=== PATIENT | female | born 1940 | race Caucasian/White ===

== ENCOUNTER 2018-03-03 11:19 | Observation (INO) | payer MEDICARE, OTHER ==
[2018-03-03] MEDS ORDERED: TYLENOL EXTRA STRENGTH 500 MG PO STA (11:46)
--- NOTE | 2018-03-03 11:53 | ERPHSYRPT ---
- History of Present Illness Time Seen by Provider: 03/03/18 11:49 Source: patient, family Patient Subjective Stated Complaint: pt fell on , got up from chair and fell. pt states she hit head on door jam. co right rib pain Triage Nursing Assessment: pt alert, resp easy.skin w/d/p. pt has pain to right side, has bruising to right rib area. has contusion to left side of head Physician History: pt mild to mod right flank pain since slip and fall from a chair last , struck her head, no loc, no bleeding, not on blood thinners, no neck pain Allergies/Adverse Reactions: c[facility]lor [From [facility]] Allergy (Verified 03/03/18 11:47) Penicillins Allergy (Verified 03/03/18 11:47) codeine Adverse Reaction (Verified 03/03/18 11:47) morphine Adverse Reaction (Verified 03/03/18 11:47) Home Medications: Alprazolam 0.25 mg [xanAX 0.25 MG] 0.25 mg PO TIDPRN 07/19/14 [History] Calcium Carbonate/Vitamin D3 [Calcium 600 + Vit D Tablet] 1 each PO BID [History] Megestrol Acetate 40 mg [Megace 40 MG] 40 mg PO QID 07/19/14 [History] Omeprazole 40 mg PO HS 07/19/14 [History] Potassium Chloride 20 Meq [Klor-Con 20 MEQ] 20 meq PO TID 07/19/14 [History] Triamterene/Hydrochlorothiazid [Dyazide 37.5-25 Capsule] 1 each PO DAILY [History] Valsartan [Diovan] 160 mg PO HS 07/19/14 [History] Docusate Sodium [Colace] 100 mg PO BID 07/25/14 [History] Levothyroxine Sodium 75 Mcg [Synthroid 75 Mcg] 75 mcg PO DAILY 07/25/14 [ History] Loratadine [Claritin] 10 mg PO DAILY PRN PRN 07/25/14 [History] Aspirin 81 gm Chew [Baby Aspirin 81 mg Chew] 81 mg PO DAILY 03/22/15 [ History] Fenofibrate,Micronized 145 mg* [Tricor 145 MG] 145 mg PO HS 03/22/15 [History ] Ketoconazole Cream [Nizoral CREAM] 1 applic TOP DAILY PRN PRN 03/22/15 [ History] Nisoldipine 20 mg PO DAILY 03/22/15 [History] Hx Tetanus, Diphtheria Vaccination/Date Given: (UNKNOWN) Hx Influenza Vaccination/Date Given: Yes Hx Pneumococcal Vaccination/Date Given: Yes Immunizations Up to Date: Yes - Review of Systems Constitutional: No Fever Eyes: No Vision Changes Ears, Nose, & Throat: No Mouth Pain Respiratory: No Dyspnea Cardiac: Chest Pain Abdominal/Gastrointestinal: No Abdominal Pain, No Vomiting Genitourinary Symptoms: No Hematuria Musculoskeletal: No Back Pain, No Neck Pain - Past Medical History Pertinent Past Medical History: Yes Neurological History: No Pertinent History ENT History: No Pertinent History Cardiac History: High Cholesterol, Hypertension Respiratory History: Lung Cancer Endocrine Medical History: Hypothyroidism Musculoskeletal History: Arthritis, Degenerative Disk Disease, Osteoarthritis GI Medical History: No Pertinent History History: No Pertinent History Female Reproductive Disorders: Uterine Cancer, Vaginal Cancer Other Medical History: Fx in wrist and ribs after fall in 2013. - Past Surgical History Past Surgical History: Yes Neuro Surgical History: No Pertinent History Cardiac: No Pertinent History Respiratory: Lobectomy Gastrointestinal: Cholecystectomy, Hemorrhoidectomy, Other Genitourinary: No Pertinent History Musculoskeletal: Orthopedic Surgery Female Surgical History: Hysterectomy Other Surgical History: surgery to remove cancer in right lung. multiple hernia repairs. L TKR. R partial knee replacement. removal of pancreas "stone " - Social History Smoking Status: Never smoker Exposure to second hand smoke: Yes Drug Use: none Patient Lives Alone: No - Female History Hx Last Menstrual Period: post Hx Now: No - Nursing Vital Signs Nursing Vital Signs: Initial Vital Signs Temperature 99.5 F 03/03/18 11:38 Pulse Rate 84 03/03/18 11:38 Respiratory Rate 18 03/03/18 11:38 Blood Pressure 180/88 03/03/18 11:38 O2 Sat by Pulse Oximetry 98 03/03/18 11:38 Pain Scale Pain Intensity 0 - Physical Exam General Appearance: no apparent distress Eye Exam: eyes nml inspection Ears, Nose, Throat Exam: moist mucous membranes Neck Exam: normal inspection, non-tender, supple, full range of motion Respiratory Exam: normal breath sounds, chest tenderness, other (tender right flank, no sub Q air) Cardiovascular Exam: regular rate/rhythm Gastrointestinal/Abdomen Exam: soft, tenderness, No rebound Back Exam: No vertebral tenderness Extremity Exam: normal inspection Neurologic Exam: alert, oriented x 3, cooperative Skin Exam: warm, dry SpO2 Interpretation: normal SpO2: 98 Oxygen Delivery: Room Air - Course Nursing assessment & vital signs reviewed: Yes EKG Interpreted by Me: Other (nsr 81, no stemi) - CT Exams Chest CT Interpretation: Discussed w/radiologist, Other (no large central PE, +rib fx on the right 10 and 11) Ordered Tests: Active Orders 24 hr Category Date Time Status EKG-ER Only STAT Care 03/03/18 11:47 Active IV Insertion STAT Care 03/03/18 11:47 Active ABDOMEN AND PELVIS W CONTRAST [CT] Stat Exams 03/03/18 13:33 Taken CHEST 2 VIEWS (PA AND LAT) Stat Exams 03/03/18 11:47 Taken CHEST WITH CONTRAST [CT] Stat Exams 03/03/18 13:33 Taken HEAD WITHOUT CONTRAST [CT] Stat Exams 03/03/18 11:49 Taken CBC W DIFF Stat Lab 03/03/18 12:25 Completed CK-Creatinine Phosphokinase Stat Lab 03/03/18 12:25 Completed CMP Stat Lab 03/03/18 12:25 Completed D-DIMER QUANTITATION Stat Lab 03/03/18 12:25 Completed PROTIME WITH INR Stat Lab 03/03/18 12:25 Completed TROPONIN Q3H Lab 03/03/18 12:25 Completed TROPONIN Q3H Lab 03/03/18 15:20 Completed TROPONIN Q3H Lab 03/03/18 18:00 Ordered TROPONIN Q3H Lab 03/03/18 21:00 Ordered TROPONIN Q3H Lab 03/04/18 00:00 Ordered Transfer Order Routine Transfer 03/03/18 Ordered Medication Summary Discontinued Medications Generic Name Dose Route Start Last Admin Trade Name Freq PRN Reason Stop Dose Admin Acetaminophen 500 mg 03/03/18 11:46 03/03/18 11:57 Tylenol Extra Strength 500 Mg PO 03/03/18 11:47 500 mg STAT STA Administration Acetaminophen Confirm 03/03/18 11:57 Tylenol Extra Strength 500 Mg Administered 03/03/18 11:58 Dose 500 mg .ROUTE .STK-MED ONE Ketorolac Tromethamine 30 mg 03/03/18 13:48 03/03/18 13:52 Toradol 30 Mg Injection IV 03/03/18 13:49 30 mg STAT ONE Administration Ketorolac Tromethamine Confirm 03/03/18 13:50 Toradol 30 Mg Injection Administered 03/03/18 13:51 Dose 30 mg .ROUTE .STK-MED ONE Lab/Rad Data: Laboratory Result Diagrams 03/03/18 12:25 03/03/18 12:25 Laboratory Results 03/03/18 03/03/18 03/03/18 Range/Units 15:20 12:25 12:25 WBC (4.0-10.5) K/mm3 RBC (4.1-5.4) M/mm3 Hgb (12.0-16.0) gm/dl Hct (35-47) % MCV (78-100) fl MCH (26-32) pg MCHC (32-36) g/dl RDW (11.5-14.0) % Plt Count (150-450) K/mm3 MPV (6-9.5) fl Gran % (36.0-66.0) % Eos # (Auto) (0-0.5) Absolute Lymphs (auto) (1.0-4.6) Absolute Monos (auto) (0.0-1.3) Lymphocytes % (24.0-44.0) % Monocytes % (0.0-12.0) % Eosinophils % (0.00-5.0) % Basophils % (0.0-0.4) % Absolute Granulocytes (1.4-6.9) Basophils # (0-0.4) PT 12.7 H (9.95-12.35) SECONDS INR 1.09 (0.8-3.0) D-Dimer 1059 H* (215-500) ng/mL Sodium (137-145) mmol/L Potassium (3.5-5.1) mmol/L Chloride (98-107) mmol/L Carbon Dioxide (22-30) mmol/L Anion Gap (5-15) MEQ/L BUN (7-17) mg/dL Creatinine (0.52-1.04) mg/dL Estimated GFR ML/MIN Glucose (74-106) mg/dL Calcium (8.4-10.2) mg/dL Total Bilirubin (0.2-1.3) mg/dL AST (14-36) U/L ALT (0-35) U/L Alkaline Phosphatase (38-126) U/L Creatine Kinase (30-135) U/L Troponin I < 0.012 < 0.012 (0.000-0.034) ng/mL Serum Total Protein (6.3-8.2) g/dL Albumin (3.5-5.0) g/dL 03/03/18 03/03/18 Range/Units 12:25 12:25 WBC 5.5 (4.0-10.5) K/mm3 RBC 4.57 (4.1-5.4) M/mm3 Hgb 14.6 (12.0-16.0) gm/dl Hct 42.4 (35-47) % MCV 92.8 (78-100) fl MCH 31.9 (26-32) pg MCHC 34.4 (32-36) g/dl RDW 14.3 H (11.5-14.0) % Plt Count 233 (150-450) K/mm3 MPV 9.3 (6-9.5) fl Gran % 69.4 H (36.0-66.0) % Eos # (Auto) 0.17 (0-0.5) Absolute Lymphs (auto) 0.97 L (1.0-4.6) Absolute Monos (auto) 0.52 (0.0-1.3) Lymphocytes % 17.6 L (24.0-44.0) % Monocytes % 9.4 (0.0-12.0) % Eosinophils % 3.1 (0.00-5.0) % Basophils % 0.5 (0.0-0.4) % Absolute Granulocytes 3.83 (1.4-6.9) Basophils # 0.03 (0-0.4) PT (9.95-12.35) SECONDS INR (0.8-3.0) D-Dimer (215-500) ng/mL Sodium 144 (137-145) mmol/L Potassium 3.1 L (3.5-5.1) mmol/L Chloride 109 H (98-107) mmol/L Carbon Dioxide 22 (22-30) mmol/L Anion Gap 16.1 H (5-15) MEQ/L BUN 13 (7-17) mg/dL Creatinine 0.76 (0.52-1.04) mg/dL Estimated GFR > 60.0 ML/MIN Glucose 103 (74-106) mg/dL Calcium 9.5 (8.4-10.2) mg/dL Total Bilirubin 0.90 (0.2-1.3) mg/dL AST 21 (14-36) U/L ALT 20 (0-35) U/L Alkaline Phosphatase 122 (38-126) U/L Creatine Kinase 106 (30-135) U/L Troponin I (0.000-0.034) ng/mL Serum Total Protein 8.2 (6.3-8.2) g/dL Albumin 4.5 (3.5-5.0) g/dL - Progress Progress: improved Discussed with : Other (Dr Lundberg) Will see patient in: hospital (observation) Counseled pt/family regarding: lab results, diagnosis, rad results - Departure Time of Disposition: 18:13 Departure Disposition: Observation Clinical Impression: D-dimer, elevated Fracture, rib Qualifiers: Encounter type: initial encounter Rib fracture type: multiple ribs Fracture type: closed Laterality: right Qualified Code(s): S22.41XA - Multiple fractures of ribs, right side, initial encounter for closed fracture Condition: Stable Critical Care Time: No Referrals: JOSE COFFEY MD [Primary Care Provider] -
[2018-03-03] MEDS ORDERED: TYLENOL EXTRA STRENGTH 500 MG ONE (11:57)
[2018-03-03 12:34] LABS: BASOPHIL % 0.5 % (0.0-0.4); Basophil (Absolute #) 0.03 (0-0.4); Eosinophil % 3.1 % (0.00-5.0); Eosinophil (Absolute #) 0.17 (0-0.5); Granulocyte Absolute (ANC) 3.83 (1.4-6.9); Granulocytes % 69.4 % (36.0-66.0); Hematocrit 42.4 % (35-47); Hemoglobin 14.6 gm/dl (12.0-16.0); Lymphocyte (Absolute #) 0.97 (1.0-4.6); Lymphocytes % 17.6 % (24.0-44.0); Mean Cell Volume 92.8 fl (78-100); Mean Corpuscular Hemoglobin 31.9 pg (26-32); Mean Corpuscular Hgb Concent. 34.4 g/dl (32-36); Mean Platelet Volume 9.3 fl (6-9.5); Monocyte (Absolute #) 0.52 (0.0-1.3); Monocytes % 9.4 % (0.0-12.0); Platelet Count 233 K/mm3 (150-450); Red Blood Count 4.57 M/mm3 (4.1-5.4); Red Cell Distribution Width 14.3 % (11.5-14.0); White Blood Count 5.5 K/mm3 (4.0-10.5)
[2018-03-03 12:52] LABS: INR 1.09 (0.8-3.0)
[2018-03-03 13:16] LABS: ALKALINE PHOSPHATASE 122 U/L (38-126); BLOOD UREA NITROGEN 13 mg/dL (7-17); CHLORIDE 109 mmol/L (98-107); Calcium 9.5 mg/dL (8.4-10.2); Carbon Dioxide 22 mmol/L (22-30); Potassium 3.1 mmol/L (3.5-5.1); SGOT/AST 21 U/L (14-36); SGPT/ALT 20 U/L (0-35); Total Protein 8.2 g/dL (6.3-8.2)
[2018-03-03 13:24] LABS: ALBUMIN 4.5 g/dL (3.5-5.0); ANION GAP 16.1 MEQ/L (5-15); CK-Creatinine Phosphokinase 106 U/L (30-135); Creatinine 1 0.76 mg/dL (0.52-1.04); Glucose 103 mg/dL (74-106); SODIUM 144 mmol/L (137-145)
[2018-03-03] MEDS ORDERED: TORAdol 30 mg Injection IV ONE (13:48)
[2018-03-03] MEDS ORDERED: TORAdol 30 mg Injection ONE (13:50)
[2018-03-03] MEDS ORDERED: APRESOLINE 20 MG/ML INJ IV ONE (18:14)
[2018-03-03] MEDS ORDERED: APRESOLINE 20 MG/ML INJ ONE (18:40)
[2018-03-03] MEDS ORDERED: TYLENOL 325 MG PO PRN (19:05)
[2018-03-03] MEDS ORDERED: TORAdol 30 mg Injection IV PRN (19:05)
[2018-03-03] MEDS ORDERED: APRESOLINE 20 MG/ML INJ IV PRN (20:44)
[2018-03-03] MEDS ORDERED: Klor Con 10 MEQ PO ONE (20:45)
[2018-03-03] MEDS ORDERED: DIOVAN 80 MG ONE (21:10)
[2018-03-03] MEDS ORDERED: Protonix 40MG Tablet ONE (21:10)
[2018-03-03] MEDS ORDERED: xanAX 0.25 MG ONE (21:10)
[2018-03-03] MEDS ORDERED: xanAX 0.25 MG PO PRN (21:11)
[2018-03-03] MEDS: DIOVAN 80 MG PO SCH (21:16)
--- NOTE | 2018-03-03 21:31 | XRAY ---
Indication: Right-sided pain following fall 3 days ago. Multiple contiguous axial images obtained through the abdomen and pelvis using 80 cc Isovue 370 contrast only. Comparison: March 22, 2015. CT chest reported separately. Noncontrasted stomach and bowel loops appear nonobstructed. Again scattered colonic diverticulosis without diverticulitis. Stable tiny renal cortical cysts bilaterally. Previous hysterectomy, appendectomy, cholecystectomy, and ventral hernia repair. No free fluid/air. Remaining liver, pancreas, spleen, adrenal glands, ureters, and bladder appear unremarkable. Moderate aortoiliac calcifications. No AAA or pathological retroperitoneal lymphadenopathy. Osseous structures intact again with mild/moderate multilevel lumbar degenerative spondylosis including minimal anterior stasis of L3 on L4 on L5. Impression: 1. Stable bilateral renal cysts and colonic diverticulosis. 2. No new or acute intra-abdominal/pelvic abnormalities. 3. Stable lumbar degenerative spondylosis. Comment: Preliminary interpretation was made by [facility]. No critical discrepancy. CTDI 16.67
--- NOTE | 2018-03-03 21:33 | XRAY ---
Indication: Right-sided pain following fall 3 days ago. Multiple contiguous axial images obtained through the chest using 80 cc Isovue 370 contrast. Comparison: None Lungs are fully inflated with mild right middle lobe and lesser degree both lower lobe fibrosis/scarring. No suspicious pulmonary mass, infiltrate, or effusion. Heart is not enlarged. No pathologic mediastinal/hilar lymphadenopathy. Moderate-sized hiatal hernia. Bone windows reveal old right rib fractures and nondisplaced right posterior 10/[address] abdomen/pelvis reported separately. Impression: 1. Nondisplaced right 10/11 acute rib fractures. No pneumothorax or hemothorax. 2. Hiatal hernia. Comment: Preliminary interpretation was made by [facility]. No critical discrepancy. CTDI 16.98
--- NOTE | 2018-03-03 21:35 | XRAY ---
Indication: Right-sided chest pain following fall 3 days ago. Comparison: December 18, 2015. PA/lateral chest again hyperinflated with right middle lobe fibrosis/scarring. No focal infiltrate, consolidation, large effusion, or pneumothorax. Heart is not enlarged. Bony thorax intact again with mild osteopenia, degenerative changes, and old right rib fractures. Impression: Nonacute chest with chronic features.
[2018-03-03] MEDS: ENOXAPARIN SODIUM SQ SCH (21:56)
[2018-03-03] MEDS ORDERED: Protonix 40MG Tablet PO SCH (22:00)
[2018-03-03] MEDS ORDERED: ULTRAM 50 MG PO PRN (22:29)
[2018-03-03] MEDS ORDERED: BENADRYL 25 MG CAPSULE PO PRN (22:30)
[2018-03-04 06:04] LABS: BASOPHIL % 0.6 % (0.0-0.4); Basophil (Absolute #) 0.03 (0-0.4); Eosinophil % 3.6 % (0.00-5.0); Eosinophil (Absolute #) 0.17 (0-0.5); Granulocyte Absolute (ANC) 2.78 (1.4-6.9); Granulocytes % 59.3 % (36.0-66.0); Hematocrit 37.8 % (35-47); Hemoglobin 12.8 gm/dl (12.0-16.0); Lymphocytes % 25.6 % (24.0-44.0); Mean Corpuscular Hemoglobin 31.8 pg (26-32); Mean Corpuscular Hgb Concent. 33.9 g/dl (32-36); Mean Platelet Volume 9.7 fl (6-9.5); Monocyte (Absolute #) 0.51 (0.0-1.3); Monocytes % 10.9 % (0.0-12.0); Platelet Count 234 K/mm3 (150-450); Red Blood Count 4.02 M/mm3 (4.1-5.4); Red Cell Distribution Width 14.4 % (11.5-14.0); White Blood Count 4.7 K/mm3 (4.0-10.5)
[2018-03-04 06:18] LABS: ALBUMIN 3.7 g/dL (3.5-5.0); ALKALINE PHOSPHATASE 91 U/L (38-126); ANION GAP 12.7 MEQ/L (5-15); BLOOD UREA NITROGEN 14 mg/dL (7-17); CHLORIDE 109 mmol/L (98-107); Calcium 8.8 mg/dL (8.4-10.2); Carbon Dioxide 24 mmol/L (22-30); Creatinine 1 0.68 mg/dL (0.52-1.04); Glucose 99 mg/dL (74-106); Potassium 3.4 mmol/L (3.5-5.1); SGOT/AST 18 U/L (14-36); SGPT/ALT 16 U/L (0-35); SODIUM 142 mmol/L (137-145); Total Protein 6.6 g/dL (6.3-8.2)
[2018-03-04] MEDS ORDERED: xanAX 0.25 MG PO PRN (07:33)
[2018-03-04] MEDS ORDERED: ULTRAM 50 MG PO PRN (07:34)
[2018-03-04] MEDS ORDERED: Lopressor 25MG Tab PO SCH (08:00)
[2018-03-04] MEDS ORDERED: MEDICATION INTERVENTION MC SCH (09:00)
[2018-03-04] MEDS: ENOXAPARIN SODIUM SQ SCH (09:29)
[2018-03-04] MEDS ORDERED: Klor Con 10 MEQ PO SCH (10:00)
[2018-03-04] MEDS ORDERED: TRIAMTERENE PO SCH (10:00)
[2018-03-04] MEDS ORDERED: Maxzide-25MG Tablet PO SCH (10:00)
[2018-03-04] MEDS ORDERED: ECOTRIN 81 MG PO SCH (10:00)
[2018-03-04] MEDS ORDERED: NISOLDIPINE 20 MG PO SCH (10:00)
[2018-03-04] MEDS ORDERED: HYDROCHLOROTHIAZID PO SCH (10:00)
[2018-03-04] MEDS ORDERED: NON-FORMULARY ITEM (Potassium Chloride 20 Meq [Klor-Con 20 Meq] 20 MEQ) PO SCH (10:00)
[2018-03-04] MEDS ORDERED: SYNTHROID 75 MCG PO SCH (10:00)
[2018-03-04] MEDS ORDERED: BABY ASPIRIN 81 MG CHEW PO SCH (10:00)
[2018-03-04 12:01] VITALS: BP 155/80; PULSE 74; O2SAT 97
[2018-03-04] MEDS: DIOVAN 80 MG PO SCH (12:50)
[2018-03-04] MEDS ORDERED: Klor Con 10 MEQ PO ONE (13:00)
--- NOTE | 2018-03-06 10:06 | XRAY ---
Indication: Posterior head injury. Multiple contiguous axial images obtained through the head without contrast. Comparison: December 19, 2015. Stable age-appropriate global atrophy and mild periventricular degenerative micro-ischemia bilaterally. No acute intracranial hemorrhage, abnormal extra-axial fluid collection, or mass effect. Fourth ventricle is midline. Bony calvarium intact. Visualized paranasal sinuses and mastoid air cells are clear. Impression: Stable nonacute senile brain. Comment: Preliminary interpretation was made by [facility]. No discrepancy. CTDI 49.85
--- NOTE | 2018-03-06 14:12 | HP ---
HISTORY OF PRESENT ILLNESS: Hina is a 77 year-old lady who presented to the emergency room with chief complaint of having chest pain on the side after having a fall and elevated blood pressure. The patient said she is 77. She had hit her head and had a fall a few days back and thereafter she fell down and injured her chest wall and also having some elevated blood pressure which she has not been able to control. With those complaints she reported to the emergency room. The patient was noted to have multiple rib fractures on the right side with some displacement along with some contusion of the head and was admitted to the hospital. PAST MEDICAL HISTORY: Pertinent history includes elevated cholesterol, hypertension. She does have a history of some lung cancer in the past. Endocrine system hypothyroidism. Musculoskeletal arthritis. History of wrist and rib fractures from a fall in 2013 also. PAST SURGICAL HISTORY: Surgery to remove cancer from right lung, multiple hernia repairs, partial knee replacement, removal of pancreatic stones per her, cholecystectomy, hemorrhoidectomy, some orthopedic procedures and hysterectomy. SOCIAL HISTORY: Denies smoking. No drug abuse. HOME MEDICATIONS: Alprazolam 0.25 mg t.i.d., calcium carbonate, megestrol 40, omeprazole 40, potassium 20 mEq t.i.d., triamterene hydrochlorothiazide 1 tablet daily, valsartan 160 once a day, Colace 100 b.i.d., levothyroxine 75 mcg daily. Loratadine 10 mg, aspirin 81, Fenofibrate, ketoconazole. ALLERGIES: CEFACLOR, PENICILLIN, CODEINE, MORPHINE. REVIEW OF SYSTEMS: The patient denies any fever. No visual changes. No major respiratory changes. She did have small headache with contusion, some chest pain worse on right side at site of injury from the fall. GI: No abdominal discomfort, vomiting or diarrhea. No hematuria. MUSCULOSKELETAL: No back pain. No neck pain. LUNGS: Positive for lung cancer status post-surgery. PHYSICAL EXAMINATION: Vital signs at the time of admission included blood pressure 180/88, pulse 84, respiratory rate 18, temperature afebrile 99.5F. Oxygen saturation 98%. HEENT: Pulses reactive. NECK: No JVD. No thyromegaly. No lymphadenopathy. CHEST: Tenderness right side, normal breath sounds. CVS: S1, S2 normal. ABDOMEN: Soft, nontender, EXTREMITIES: No edema. Pedal pulses present. NEUROLOGIC: Alert with no focal deficits. LAB DATA AND TESTS: The patient also had a slightly positive D-dimer. She had CT of the chest done. No large pulmonary embolism, rib fracture right tenth and eleventh rib with slight displacement. EKG sinus rhythm with some ectopy. Lab data showed sodium 144, potassium 3.1, chloride 109, BUN 13, creatinine 0.6. CBC showed white blood cell count 5.5, hemoglobin 14.3, hematocrit 42.4, PLT 232,000. Troponin was initially negative 0.012. CBC showed white blood cell count 5.5, hemoglobin 14.6, hematocrit 42.4. RDW 14.3, granulocytes 69.4. Sodium 144. ASSESSMENT AND PLAN: The patient was admitted with: 1) Chest pain multiple rib fracture and check the troponin to rule out myocardial infarction. 2) Positive D-dimer however CT-angiogram was negative for pulmonary embolism. 3) Elevated blood pressure. The patient's medications were adjusted, added blood pressure medicine and the patient also stayed on a full dose of Lovenox at the time. 4) Hypokalemia. Aggressive potassium supplementation was advised. If the patient turns out to be positive for troponins will transfer to [facility].
--- NOTE | 2018-03-08 14:19 | DS ---
DISCHARGE DIAGNOSES: 1) POSITIVE TROPONIN. 2) HYPOKALEMIA. 3) HYPERTENSION. 4) RIB FRACTURES. 5) HEAD CONTUSION, STATUS POST FALL. HOSPITAL COURSE: The patient was admitted with chest pain, had rib fractures x2 and ruled out for pulmonary embolism. However she had an elevated troponin of 0.039, slightly positive only one of that. The patient also had peripheral edema which was supplemented. In view of the positive troponin, the patient will be transferred to [facility] for further work up with lion tamer as a lion tamer is not available at [facility]. In view of all the diagnoses she will be transferred to [facility] for further care at this time. The patient is advised to get records transferred to [facility] at this time.
== END 2018-03-04 13:20 | disposition short-term general hospital (02) ==
LOC: ED 11:19 → MED SURG 18:50
PROVIDERS: ADMIT Internal Medicine; ATTEND General Practice
DX: R07.9 Chest pain, unspecified (principal); R79.1 Abnormal coagulation profile; I10 Essential (primary) hypertension; E03.9 Hypothyroidism, unspecified; E87.6 Hypokalemia; Z85.118 Personal history of other malignant neoplasm of bronchus and lung; M19.90 Unspecified osteoarthritis, unspecified site; Z79.899 Other long term (current) drug therapy
CPT/HCPCS: 36000; 36415; 70450; 71046; 71260; 74177; 80053; 82550; 84443; 84484; 85025; 85379; 85610; 93005; 96374; 96375; 99285; G0378; J0360; J1650; J1885; A9270-GY

== ENCOUNTER 2019-03-03 02:12 | Observation (INO) | payer MEDICARE ==
--- NOTE | 2019-03-03 02:18 | ERPHSYRPT ---
<FOREIGNJORGE JARVISREY - Last Filed: 03/03/19 06:49> - History of Present Illness Time Seen by Provider: 03/03/19 02:15 Historian: patient, EMS Exam Limitations: no limitations Physician History: pt had CP this evening and came in by EMS , now resolved but still short of breath; no prior CP but has swollen legs just today; head injury from fall after vertigo more than a week ago and she was told had neg MRI after that event. no blood thinners and neuro normal tonight. Timing/Duration: today Activities at Onset: none Location: substernal Chest Pain Radiation: arm Severity of Pain-Max: moderate Severity of Pain-Current: none Associated Symptoms: shortness of breath, diaphoresis Prior Chest Pain/Cardiac Workup: no prior chest pain Nitro Today/Relief: no nitro taken today Aspirin Treatment Today: 81 mg x 4, provided at home Allergies/Adverse Reactions: cefaclor [From Ceclor] Allergy (Verified 03/03/18 11:47) Penicillins Allergy (Verified 03/03/18 11:47) codeine Adverse Reaction (Verified 03/03/18 11:47) morphine Adverse Reaction (Verified 03/03/18 11:47) Home Medications: Alprazolam 0.25 mg [xanAX 0.25 MG] 0.25 mg PO TIDPRN 07/19/14 [History] Megestrol Acetate 40 mg [Megace 40 MG] 40 mg PO QID 07/19/14 [History] Omeprazole 40 mg PO HS 07/19/14 [History] Potassium Chloride 20 Meq [Klor-Con 20 MEQ] 20 meq PO TID 07/19/14 [History] Triamterene/Hydrochlorothiazid [Dyazide 37.5-25 Capsule] 1 each PO DAILY [History] Valsartan [Diovan] 160 mg PO HS 07/19/14 [History] Levothyroxine Sodium 75 Mcg [Synthroid 75 Mcg] 75 mcg PO DAILY 07/25/14 [ History] Loratadine [Claritin] 10 mg PO DAILY PRN PRN 07/25/14 [History] Aspirin 81 gm Chew [Baby Aspirin 81 mg Chew] 81 mg PO DAILY 03/22/15 [ History] Fenofibrate,Micronized 145 mg* [Tricor 145 MG] 145 mg PO HS 03/22/15 [History ] Ketoconazole Cream [Nizoral CREAM] 1 applic TOP DAILY PRN PRN 03/22/15 [ History] Nisoldipine 20 mg PO DAILY 03/22/15 [History] Hx Tetanus, Diphtheria Vaccination/Date Given: (UNKNOWN) Hx Influenza Vaccination/Date Given: Yes Hx Pneumococcal Vaccination/Date Given: Yes - Review of Systems Constitutional: No Fever, No Chills Eyes: No Symptoms Ears, Nose, & Throat: No Symptoms Respiratory: Dyspnea, No Cough Cardiac: Chest Pain, No Edema, No Syncope Abdominal/Gastrointestinal: No Abdominal Pain, No Nausea, No Vomiting, No Diarrhea Genitourinary Symptoms: No Dysuria Musculoskeletal: No Back Pain, No Neck Pain Skin: No Rash Neurological: No Dizziness, No Focal Weakness, No Sensory Changes Psychological: No Symptoms Endocrine: No Symptoms All Other Systems: Reviewed and Negative - Past Medical History Pertinent Past Medical History: Yes Neurological History: No Pertinent History ENT History: Cataracts, Macular Degeneration Cardiac History: High Cholesterol Respiratory History: Lung Cancer Endocrine Medical History: Hypothyroidism Musculoskeletal History: Arthritis, Degenerative Disk Disease, Osteoarthritis GI Medical History: Hernia, Pancreatitis, Other History: No Pertinent History Psycho-Social History: Anxiety, Depression, Panic Disorder 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, Other Other Medical History: bowel blockage, - Past Surgical History Past Surgical History: Yes Neuro Surgical History: No Pertinent History Cardiac: No Pertinent History Respiratory: Lobectomy Gastrointestinal: Appendectomy, Cholecystectomy, Hernia Repair Genitourinary: No Pertinent History Musculoskeletal: Orthopedic Surgery Female Surgical History: Hysterectomy Other Surgical History: upper right lung, knee replacement X2 - Social History Smoking Status: Never smoker Exposure to second hand smoke: Yes Drug Use: none Patient Lives Alone: No - Nursing Vital Signs Nursing Vital Signs: Initial Vital Signs Temperature 98.6 F 03/03/19 02:26 Pulse Rate 80 03/03/19 02:26 Respiratory Rate 22 03/03/19 02:26 O2 Sat by Pulse Oximetry 98 03/03/19 02:26 Pain Scale Pain Intensity 0 - Physical Exam General Appearance: no apparent distress, alert Eye Exam: PERRL/EOMI, eyes nml inspection Ears, Nose, Throat Exam: normal ENT inspection, moist mucous membranes Neck Exam: normal inspection, non-tender, supple, full range of motion Respiratory Exam: normal breath sounds, lungs clear, No respiratory distress Cardiovascular Exam: regular rate/rhythm, normal heart sounds Gastrointestinal/Abdomen Exam: soft, No tenderness, No mass Back Exam: normal inspection, No CVA tenderness, No vertebral tenderness Extremity Exam: normal inspection, normal range of motion Neurologic Exam: alert, oriented x 3, cooperative, normal mood/affect, sensation nml, No motor deficits Skin Exam: normal color, warm, dry - Course Nursing assessment & vital signs reviewed: Yes EKG Interpreted by Me: Sinus Rhythm, NORMAL AXIS, Non-specific ST Changes Ordered Tests: Active Orders 24 hr Category Date Time Status EKG-ER Only STAT Care 03/03/19 02:18 Active IV Insertion STAT Care 03/03/19 02:18 Active Pulse Oximetry (ED) STAT Care 03/03/19 02:18 Active CHEST 1 VIEW (PORTABLE) Stat Exams 03/03/19 02:19 Taken CHEST WITH CONTRAST [CT] Stat Exams 03/03/19 05:10 Taken CBC W DIFF Stat Lab 03/03/19 02:18 Completed CMP Stat Lab 03/03/19 02:18 Completed CULTURE,URINE Stat Lab 03/03/19 02:35 Received D-DIMER QUANTITATION Stat Lab 03/03/19 02:18 Completed LIPASE Stat Lab 03/03/19 02:18 Completed Lactic Acid Stat Lab 03/03/19 04:30 Completed NT PRO BNP Stat Lab 03/03/19 02:18 Completed TROPONIN Q3H Lab 03/03/19 02:30 Completed TROPONIN Q3H Lab 03/03/19 05:30 Completed TROPONIN Q3H Lab 03/03/19 08:30 Ordered TROPONIN Q3H Lab 03/03/19 11:30 Ordered TROPONIN Q3H Lab 03/03/19 14:30 Ordered UA W/RFX UR CULTURE Stat Lab 03/03/19 02:35 Completed Medication Summary Generic Name Dose Route Start Last Admin Trade Name Freq PRN Reason Stop Dose Admin Sodium Chloride 1,000 mls @ 100 mls/hr 03/03/19 02:30 03/03/19 03:21 Sodium Chloride 0.9% 1000 Ml IV 04/02/19 02:29 100 mls/hr .Q10H LOKESH Administration Discontinued Medications Generic Name Dose Route Start Last Admin Trade Name Freq PRN Reason Stop Dose Admin Hydralazine HCl 10 mg 03/03/19 06:53 Apresoline 20 Mg/Ml Inj IV 03/03/19 06:54 STAT ONE Lorazepam 0.5 mg 03/03/19 02:28 03/03/19 03:20 Ativan 0.5 Mg PO 03/03/19 02:29 0.5 mg STAT ONE Administration Lorazepam Confirm 03/03/19 03:11 Ativan 1 Mg Administered 03/03/19 03:12 Dose 1 mg .ROUTE .STK-MED ONE Lorazepam Confirm 03/03/19 03:27 Ativan 1 Mg Administered 03/03/19 03:28 Dose 1 mg .ROUTE .STK-MED ONE Lorazepam 1 mg 03/03/19 04:29 03/03/19 04:38 Ativan 1 Mg PO 03/03/19 04:30 1 mg STAT ONE Administration Lorazepam Confirm 03/03/19 04:38 Ativan 1 Mg Administered 03/03/19 04:39 Dose 1 mg .ROUTE .STK-MED ONE Valsartan 160 mg 03/03/19 07:10 Diovan 80 Mg PO 03/03/19 07:11 DAILY STA Lab/Rad Data: Laboratory Result Diagrams 03/03/19 02:18 03/03/19 02:18 Laboratory Results 03/03/19 03/03/19 03/03/19 Range/Units 05:30 04:30 02:35 WBC (4.0-10.5) K/mm3 RBC (4.1-5.4) M/mm3 Hgb (12.0-16.0) gm/dl Hct (35-47) % MCV (78-100) fl MCH (26-32) pg MCHC (32-36) g/dl RDW (11.5-14.0) % Plt Count (150-450) K/mm3 MPV (6-9.5) fl Gran % (36.0-66.0) % Eos # (Auto) (0-0.5) Absolute Lymphs (auto) (1.0-4.6) Absolute Monos (auto) (0.0-1.3) Lymphocytes % (24.0-44.0) % Monocytes % (0.0-12.0) % Eosinophils % (0.00-5.0) % Basophils % (0.0-0.4) % Absolute Granulocytes (1.4-6.9) Basophils # (0-0.4) D-Dimer (215-500) ng/mL Sodium (137-145) mmol/L Potassium (3.5-5.1) mmol/L Chloride (98-107) mmol/L Carbon Dioxide (22-30) mmol/L Anion Gap (5-15) MEQ/L BUN (7-17) mg/dL Creatinine (0.52-1.04) mg/dL Estimated GFR ML/MIN Glucose (74-106) mg/dL Lactic Acid 1.5 (0.4-2.0) Calcium (8.4-10.2) mg/dL Total Bilirubin (0.2-1.3) mg/dL AST (14-36) U/L ALT (0-35) U/L Alkaline Phosphatase (38-126) U/L Troponin I 0.055 H* (0.000-0.034) ng/mL NT-Pro-B Natriuret Pep (0-1800) pg/mL Serum Total Protein (6.3-8.2) g/dL Albumin (3.5-5.0) g/dL Lipase (23-300) U/L Urine Color STRAW (YELLOW) Urine Appearance CLEAR (CLEAR) Urine pH 8.0 (5-6) Ur Specific Eden 1.004 (1.005-1.025) Urine Protein 100 (Negative) Urine Ketones NEGATIVE (NEGATIVE) Urine Blood SMALL (0-5) Ozzy/ul Urine Nitrite NEGATIVE (NEGATIVE) Urine Bilirubin NEGATIVE (NEGATIVE) Urine Urobilinogen NEGATIVE (0-1) mg/dL Ur Leukocyte Esterase NEGATIVE (NEGATIVE) Urine WBC (Auto) NONE (0-5) /HPF Urine RBC (Auto) NONE (0-2) /HPF U Epithel Cells (Auto) NONE (FEW) /HPF Urine Bacteria (Auto) NONE (NEGATIVE) /HPF Urine Mucus (Auto) SLIGHT (NEGATIVE) /HPF Urine Culture Reflexed YES (NO) Urine Glucose NEGATIVE (NEGATIVE) mg/dL 03/03/19 03/03/19 03/03/19 Range/Units 02:30 02:18 02:18 WBC (4.0-10.5) K/mm3 RBC (4.1-5.4) M/mm3 Hgb (12.0-16.0) gm/dl Hct (35-47) % MCV (78-100) fl MCH (26-32) pg MCHC (32-36) g/dl RDW (11.5-14.0) % Plt Count (150-450) K/mm3 MPV (6-9.5) fl Gran % (36.0-66.0) % Eos # (Auto) (0-0.5) Absolute Lymphs (auto) (1.0-4.6) Absolute Monos (auto) (0.0-1.3) Lymphocytes % (24.0-44.0) % Monocytes % (0.0-12.0) % Eosinophils % (0.00-5.0) % Basophils % (0.0-0.4) % Absolute Granulocytes (1.4-6.9) Basophils # (0-0.4) D-Dimer 580 H* (215-500) ng/mL Sodium 142 (137-145) mmol/L Potassium 3.1 L (3.5-5.1) mmol/L Chloride 106 (98-107) mmol/L Carbon Dioxide 27 (22-30) mmol/L Anion Gap 12.2 (5-15) MEQ/L BUN 12 (7-17) mg/dL Creatinine 0.69 (0.52-1.04) mg/dL Estimated GFR > 60.0 ML/MIN Glucose 98 (74-106) mg/dL Lactic Acid (0.4-2.0) Calcium 9.3 (8.4-10.2) mg/dL Total Bilirubin 0.50 (0.2-1.3) mg/dL AST 20 (14-36) U/L ALT 16 (0-35) U/L Alkaline Phosphatase 90 (38-126) U/L Troponin I 0.047 H* (0.000-0.034) ng/mL NT-Pro-B Natriuret Pep 967 (0-1800) pg/mL Serum Total Protein 7.6 (6.3-8.2) g/dL Albumin 4.2 (3.5-5.0) g/dL Lipase 79 (23-300) U/L Urine Color (YELLOW) Urine Appearance (CLEAR) Urine pH (5-6) Ur Specific Eden (1.005-1.025) Urine Protein (Negative) Urine Ketones (NEGATIVE) Urine Blood (0-5) Ozzy/ul Urine Nitrite (NEGATIVE) Urine Bilirubin (NEGATIVE) Urine Urobilinogen (0-1) mg/dL Ur Leukocyte Esterase (NEGATIVE) Urine WBC (Auto) (0-5) /HPF Urine RBC (Auto) (0-2) /HPF U Epithel Cells (Auto) (FEW) /HPF Urine Bacteria (Auto) (NEGATIVE) /HPF Urine Mucus (Auto) (NEGATIVE) /HPF Urine Culture Reflexed (NO) Urine Glucose (NEGATIVE) mg/dL 03/03/19 Range/Units 02:18 WBC 5.6 (4.0-10.5) K/mm3 RBC 3.99 L (4.1-5.4) M/mm3 Hgb 12.7 (12.0-16.0) gm/dl Hct 37.9 (35-47) % MCV 95.0 (78-100) fl MCH 31.8 (26-32) pg MCHC 33.5 (32-36) g/dl RDW 13.6 (11.5-14.0) % Plt Count 218 (150-450) K/mm3 MPV 10.2 H (6-9.5) fl Gran % 61.1 (36.0-66.0) % Eos # (Auto) 0.12 (0-0.5) Absolute Lymphs (auto) 1.54 (1.0-4.6) Absolute Monos (auto) 0.47 (0.0-1.3) Lymphocytes % 27.7 (24.0-44.0) % Monocytes % 8.5 (0.0-12.0) % Eosinophils % 2.2 (0.00-5.0) % Basophils % 0.5 (0.0-0.4) % Absolute Granulocytes 3.39 (1.4-6.9) Basophils # 0.03 (0-0.4) D-Dimer (215-500) ng/mL Sodium (137-145) mmol/L Potassium (3.5-5.1) mmol/L Chloride (98-107) mmol/L Carbon Dioxide (22-30) mmol/L Anion Gap (5-15) MEQ/L BUN (7-17) mg/dL Creatinine (0.52-1.04) mg/dL Estimated GFR ML/MIN Glucose (74-106) mg/dL Lactic Acid (0.4-2.0) Calcium (8.4-10.2) mg/dL Total Bilirubin (0.2-1.3) mg/dL AST (14-36) U/L ALT (0-35) U/L Alkaline Phosphatase (38-126) U/L Troponin I (0.000-0.034) ng/mL NT-Pro-B Natriuret Pep (0-1800) pg/mL Serum Total Protein (6.3-8.2) g/dL Albumin (3.5-5.0) g/dL Lipase (23-300) U/L Urine Color (YELLOW) Urine Appearance (CLEAR) Urine pH (5-6) Ur Specific Eden (1.005-1.025) Urine Protein (Negative) Urine Ketones (NEGATIVE) Urine Blood (0-5) Ozzy/ul Urine Nitrite (NEGATIVE) Urine Bilirubin (NEGATIVE) Urine Urobilinogen (0-1) mg/dL Ur Leukocyte Esterase (NEGATIVE) Urine WBC (Auto) (0-5) /HPF Urine RBC (Auto) (0-2) /HPF U Epithel Cells (Auto) (FEW) /HPF Urine Bacteria (Auto) (NEGATIVE) /HPF Urine Mucus (Auto) (NEGATIVE) /HPF Urine Culture Reflexed (NO) Urine Glucose (NEGATIVE) mg/dL - Progress Progress: improved, re-examined Air Movement: good Progress Note: 03/03/19 05:11 d dimer was elevated and required CT PE which will result in more time to final disposition. 03/03/19 06:49 pt slipped off bedside commode but does not have any tenderness of ext or anywhere or complaints from impact and no findings on exam and declines furhter w/u - 03/03/19 06:[address] Coffey at [facility] for final disposition after discussion of remaining testing to exclude PE. Blood Culture(s) Obtained: No Antibiotics given: No Counseled pt/family regarding: lab results, diagnosis, need for follow-up, rad results - Departure Clinical Impression: Elevated troponin Condition: Fair Critical Care Time: No Referrals: JOSE COFFEY MD [Primary Care Provider] - Instructions: Chest Pain (DC) <JOSE COFFEY - Last Filed: 03/03/19 07:14> - Departure Departure Disposition: Observation Critical Care Time: Yes Critical Care Time(excluding separately billable procedures): 30-74 minutes
[2019-03-03] MEDS ORDERED: Ativan 0.5 MG PO ONE (02:28)
[2019-03-03] MEDS ORDERED: Sodium Chloride 0.9% 1000 ML 1,000 ML IV SCH (02:30)
[2019-03-03] MEDS ORDERED: Ativan 1 MG ONE ×3 (03:11→04:38)
[2019-03-03 04:12] LABS: BASOPHIL % 0.5 % (0.0-0.4); Basophil (Absolute #) 0.03 (0-0.4); Eosinophil % 2.2 % (0.00-5.0); Eosinophil (Absolute #) 0.12 (0-0.5); Granulocyte Absolute (ANC) 3.39 (1.4-6.9); Granulocytes % 61.1 % (36.0-66.0); Hematocrit 37.9 % (35-47); Hemoglobin 12.7 gm/dl (12.0-16.0); Lymphocyte (Absolute #) 1.54 (1.0-4.6); Lymphocytes % 27.7 % (24.0-44.0); Mean Corpuscular Hemoglobin 31.8 pg (26-32); Mean Corpuscular Hgb Concent. 33.5 g/dl (32-36); Mean Platelet Volume 10.2 fl (6-9.5); Monocyte (Absolute #) 0.47 (0.0-1.3); Monocytes % 8.5 % (0.0-12.0); Platelet Count 218 K/mm3 (150-450); Red Blood Count 3.99 M/mm3 (4.1-5.4); Red Cell Distribution Width 13.6 % (11.5-14.0); White Blood Count 5.6 K/mm3 (4.0-10.5)
[2019-03-03 04:12] LABS: Appearance CLEAR (CLEAR); Bilirubin NEGATIVE (NEGATIVE); Blood SMALL Ery/ul (0-5); Glucose NEGATIVE (NEGATIVE); Ketones NEGATIVE (NEGATIVE); Leukocyte Esterase NEGATIVE (NEGATIVE); Mucus SLIGHT /HPF (NEGATIVE); Nitrite NEGATIVE (NEGATIVE); Protein,Urine Dip 100 (Negative); Specific Gravity 1.004 (1.005-1.025); Urobilinogen NEGATIVE mg/dL (0-1)
[2019-03-03 04:26] LABS: ALBUMIN 4.2 g/dL (3.5-5.0); ALKALINE PHOSPHATASE 90 U/L (38-126); ANION GAP 12.2 MEQ/L (5-15); BLOOD UREA NITROGEN 12 mg/dL (7-17); CHLORIDE 106 mmol/L (98-107); Calcium 9.3 mg/dL (8.4-10.2); Carbon Dioxide 27 mmol/L (22-30); Creatinine 1 0.69 mg/dL (0.52-1.04); Glucose 98 mg/dL (74-106); LIPASE 79 U/L (23-300); NT PRO BNP 967 pg/mL (0-1800); Potassium 3.1 mmol/L (3.5-5.1); SGOT/AST 20 U/L (14-36); SGPT/ALT 16 U/L (0-35); SODIUM 142 mmol/L (137-145); Total Protein 7.6 g/dL (6.3-8.2)
[2019-03-03] MEDS ORDERED: Ativan 1 MG PO ONE (04:29)
[2019-03-03] MEDS ORDERED: APRESOLINE 20 MG/ML INJ IV ONE ×2 (06:53→12:12)
[2019-03-03] MEDS ORDERED: DIOVAN 80 MG PO STA (07:10)
[2019-03-03] MEDS ORDERED: Senokot-S Tablet PO PRN (07:15)
[2019-03-03] MEDS ORDERED: MILK OF MAGNESIA 30 ML PO PRN (07:15)
[2019-03-03] MEDS ORDERED: Sodium Chloride 0.9% 500 ML 500 ML IV SCH (07:15)
[2019-03-03] MEDS ORDERED: TYLENOL 325 MG PO PRN (07:15)
[2019-03-03] MEDS ORDERED: MAALOX ES 30 ML UNIT DOSE PO PRN (07:15)
[2019-03-03] MEDS ORDERED: Zofran 4 MG/2 ML VIAL IV PRN (07:15)
--- NOTE | 2019-03-03 07:45 | XRAY ---
Indication: Chest pain. Elevated d-dimer. Multiple contiguous axial images obtained through the chest using 80 cc Isovue 370 contrast and PE protocol. Comparison: March 03, 2018. There is poor opacification of the pulmonary arteries limiting evaluation for pulmonary embolus. No large central pulmonary embolus. Heart is borderline enlarged. No pericardial effusion. Aorta again mildly arteriosclerotic without aneurysm/dissection. Stable small mediastinal lymph nodes, none pathologically enlarged. Stable moderate-sized hiatal hernia. Examination of the lungs again demonstrate right upper lobectomy. Stable scattered fibrosis/scarring bilaterally, greatest peripheral right midlung. No suspicious pulmonary mass, infiltrate, or effusion. Osseous structures intact with mild degenerative changes, old right rib fractures, and tiny T9 bone island. Limited upper abdomen unremarkable. Impression: 1. Pulmonary embolus evaluation limited due to or contrast opacification. No gross central pulmonary embolus. 2. Stable right upper lobectomy, scattered fibrosis/scarring, and hiatal hernia. Comment: Preliminary interpretation was made by [facility]. No critical discrepancy. CTDI 12.31
--- NOTE | 2019-03-03 07:45 | XRAY ---
Indication: Chest pain. Short of breath. Comparison: March 03, 2018. Portable apical lordotic chest again demonstrates right upper lobectomy and scattered fibrosis/scarring. No focal infiltrate, consolidation, or large effusion. Heart is borderline enlarged. Bony thorax again demonstrates osteopenia, degenerative changes, and old right rib fractures. Impression: Nonacute chest with chronic features.
[2019-03-03] MEDS: Toprol Xl 50 MG PO SCH ×2 (09:46→22:05)
[2019-03-03] MEDS ORDERED: SYNTHROID 75 MCG PO SCH (10:00)
[2019-03-03] MEDS ORDERED: ECOTRIN 81 MG PO SCH (10:00)
[2019-03-03] MEDS ORDERED: ENOXAPARIN SODIUM SQ SCH (10:00)
[2019-03-03] MEDS ORDERED: CLARITIN 10 MG PO PRN (10:24)
[2019-03-03] MEDS ORDERED: xanAX 0.25 MG PO PRN (10:30)
[2019-03-03] MEDS: Megace 40 MG/ML PO SCH ×4 (11:55→22:06)
[2019-03-03] MEDS ORDERED: NON-FORMULARY ITEM (Megestrol Acetate 40 Mg*** 40 MG) PO SCH (13:00)
[2019-03-03] MEDS ORDERED: Tricor 145 MG PO SCH (22:00)
[2019-03-03] MEDS ORDERED: Protonix 40MG Tablet PO SCH (22:00)
[2019-03-03] MEDS ORDERED: DIOVAN 80 MG PO SCH (22:00)
[2019-03-03] MEDS ORDERED: NON-FORMULARY ITEM (Omeprazole [Omeprazole] 40 MG) PO SCH (22:00)
[2019-03-03] MEDS ORDERED: VALSARTAN 160 MG PO SCH (22:00)
[2019-03-04] MEDS ORDERED: Sodium Chloride 0.9% 10 ML FLUSH Syringe IV SCH (06:00)
[2019-03-04 07:10] LABS: Risk Ratio 5.9
[2019-03-04 08:00] VITALS: BP 199/87; PULSE 65; O2SAT 98
[2019-03-04] MEDS ORDERED: NORVASC 5 MG PO SCH (08:49)
--- NOTE | 2019-03-04 09:03 | PCM.SSS ---
History of Present Illness - Chief Complaint Chief Complaint: c/o chest pain for 6 hours History of Present Illness: is a 78 year old female patient had Chest Pain this evening and came in by EMS , now resolved but still short of breath; no prior CP but has swollen legs just today; head injury from fall after vertigo more than a week ago and she was told had neg MRI after that event. no blood thinners and neuro normal tonight. Timing/Duration: today Activities at Onset: none Location: substernal Chest Pain Radiation: arm Severity of Pain-Max: moderate Severity of Pain-Current: none Associated Symptoms: shortness of breath, diaphoresis Prior Chest Pain/Cardiac Workup: no prior chest pain Nitro Today/Relief: no nitro taken today Aspirin Treatment Today: 81 mg x 4, provided at home - Review of Systems Constitutional: No Fever, No Chills Eyes: No Symptoms Ears, Nose, & Throat: No Symptoms Respiratory: No Cough, No Short Of Breath Cardiac: Chest Pain, No Edema, No Syncope Abdominal/Gastrointestinal: No Abdominal Pain, No Nausea, No Vomiting, No Diarrhea Genitourinary Symptoms: No Dysuria Musculoskeletal: No Back Pain, No Neck Pain Skin: No Rash Neurological: No Dizziness, No Focal Weakness, No Sensory Changes Psychological: No Symptoms Endocrine: No Symptoms Hematologic/Lymphatic: No Symptoms Immunological/Allergic: No Symptoms Medications & Allergies Home Medications: Home Medication List Alprazolam 0.25 mg [xanAX 0.25 MG] 0.25 mg PO TIDPRN 07/19/14 [History Confirmed 03/03/19] Megestrol Acetate 40 mg [Megace 40 MG] 40 mg PO QID 07/19/14 [History Confirmed 03/03/19] Omeprazole 40 mg PO HS 07/19/14 [History Confirmed 03/03/19] Valsartan [Diovan] 160 mg PO HS 07/19/14 [History Confirmed 03/03/19] Levothyroxine Sodium 75 Mcg [Synthroid 75 Mcg] 75 mcg PO DAILY 07/25/14 [ History Confirmed 03/03/19] Loratadine [Claritin] 10 mg PO DAILY PRN PRN 07/25/14 [History Confirmed ] Aspirin 81 gm Chew [Baby Aspirin 81 mg Chew] 81 mg PO DAILY 03/22/15 [ History Confirmed 03/03/19] Fenofibrate,Micronized 145 mg* [Tricor 145 MG] 145 mg PO HS 03/22/15 [ History Confirmed 03/03/19] Metoprolol Succinate 50 mg [Toprol Xl 50 MG] 50 mg PO BID 03/03/19 [ History Confirmed 03/03/19] Allergies/Adverse Reactions: Allergies Allergy/AdvReac Type Severity Reaction Status Date / Time cefaclor [From [facility], 1928–1983] Allergy Verified 03/03/18 11:47 Penicillins Allergy Verified 03/03/18 11:47 codeine AdvReac Verified 03/03/18 11:47 morphine AdvReac Verified 03/03/18 11:47 - Past Medical History Past Medical History: Yes Neurological History: No Pertinent History ENT History: Cataracts, Macular Degeneration Cardiac History: High Cholesterol Respiratory History: Lung Cancer Endocrine Medical History: Hypothyroidism Musculoskelatal History: Arthritis, Degenerative Disk Disease, Osteoarthritis GI Medical History: Hernia, Pancreatitis, Other History: No Pertinent History Pyscho-Social History: Anxiety, Depression, Panic Disorder Reproductive Disorders: Vaginal Cancer, Other Comment: bowel blockage, - Female History Are you now?: No - Past Surgical History Past Surgical History: Yes Neuro Surgical History: No Pertinent History Cardiac History: No Pertinent History Respiratory Surgery: Lobectomy GI Surgical History: Appendectomy, Cholecystectomy, Hernia Repair Genitourinary Surgical Hx: No Pertinent History Musculskeletal Surgical Hx: Orthopedic Surgery Female Surgical History: Hysterectomy Other Surgical History: upper right lung, knee replacement X2 - Social History Smoking Status: Former smoker Exposure to second hand smoke: Yes Alcohol: None Drug Use: none - Physical Exam Vital Signs: Vital Signs - 24 hr Temp Pulse Resp BP Pulse Ox 03/04/19 07:59 98.7 F 65 17 199/87 98 03/04/19 04:25 98.3 F 70 23 149/92 97 03/04/19 00:27 98.2 F 80 25 H 193/82 96 03/03/19 20:27 99.0 F 86 20 142/73 97 03/03/19 16:00 97.8 F 76 17 178/82 96 03/03/19 14:54 96 03/03/19 12:00 18 96 03/03/19 11:37 98.1 F 78 18 194/89 96 General Appearance: no apparent distress, alert Neurologic Exam: alert, oriented x 3, cooperative, normal mood/affect, nml cerebellar function, nml station & gait, sensation nml, No motor deficits Eye Exam: PERRL/EOMI, eyes nml inspection Ears, Nose, Throat Exam: normal ENT inspection, TMs normal, pharynx normal, moist mucous membranes Neck Exam: normal inspection, non-tender, supple, full range of motion Respiratory Exam: normal breath sounds, lungs clear, No respiratory distress Cardiovascular Exam: regular rate/rhythm, normal heart sounds, normal peripheral pulses Gastrointestinal/Abdomen Exam: soft, normal bowel sounds, No tenderness, No mass Back Exam: normal inspection, normal range of motion, No CVA tenderness, No vertebral tenderness Extremity Exam: normal inspection, normal range of motion, pelvis stable Skin Exam: normal color, warm, dry, No rash Lymphatic Exam: No adenopathy Results - Labs Lab/Micro Results: Lab Results-Last 24 Hours 03/03/19 03/03/19 03/03/19 Range/Units 08:25 11:23 14:35 Troponin I 0.068 H* 0.076 H* 0.061 H* (0.000-0.034) ng/mL Triglycerides (30-150) mg/dL Cholesterol (50-200) mg/dL LDL Cholesterol (30-100) mg/dL HDL Cholesterol (40-60) mg/dL Heart Disease Risk Ratio 03/04/19 Range/Units 06:29 Troponin I (0.000-0.034) ng/mL Triglycerides 132 (30-150) mg/dL Cholesterol 183 (50-200) mg/dL LDL Cholesterol 133 H (30-100) mg/dL HDL Cholesterol 31 L (40-60) mg/dL Heart Disease Risk Ratio 5.9 Microbiology 03/03/19 02:35 Urine Culture - Preliminary Clean Catch Midstream NO GROWTH TO DATE - Radiology Impressions Radiology Exams & Impressions: Radiology Procedures Category Date Time Status CHEST 1 VIEW (PORTABLE) Stat Exams 03/03/19 02:19 Completed CHEST WITH CONTRAST [CT] Stat Exams 03/03/19 05:10 Completed - Other Procedures and Tests Respiratory Therapy 03/05/19 05:00 EKG ONCE Assessment/Plan (1) Chest pain, rule out acute myocardial infarction Current Visit: Yes Status: Resolved Code(s): R07.9 - CHEST PAIN, UNSPECIFIED (2) HTN (hypertension) Current Visit: Yes Status: Chronic Qualifiers: Hypertension type: essential hypertension Qualified Code(s): I10 - Essential (primary) hypertension Code(s): I10 - ESSENTIAL (PRIMARY) HYPERTENSION (3) Hyperlipidemia Current Visit: Yes Status: Acute Code(s): E78.5 - HYPERLIPIDEMIA, UNSPECIFIED (4) Elevated troponin Current Visit: Yes Status: Resolved Code(s): R74.8 - ABNORMAL LEVELS OF OTHER SERUM ENZYMES (5) D-dimer, elevated Current Visit: Yes Status: Resolved Onset Date: ~03/03/18 Code(s): R79.89 - OTHER SPECIFIED ABNORMAL FINDINGS OF BLOOD CHEMISTRY Hospital Summary - Hospital Course Hospital Course: Chief Complaint Diagnosis r/o [place] Allergies Allergy/AdvReac Type Severity Reaction Status Date / Time cefaclor [From Ceclor] Allergy Verified 03/03/18 11:47 Penicillins Allergy Verified 03/03/18 11:47 codeine AdvReac Verified 03/03/18 11:47 morphine AdvReac Verified 03/03/18 11:47 Vital Signs (Last 24 hours) Temp Pulse Resp BP Pulse Ox 03/04/19 08:00 17 03/04/19 07:59 98.7 F 65 17 199/87 98 03/04/19 04:25 98.3 F 70 23 149/92 97 03/04/19 00:27 98.2 F 80 25 H 193/82 96 03/03/19 20:27 99.0 F 86 20 142/73 97 03/03/19 16:00 97.8 F 76 17 178/82 96 03/03/19 14:54 96 03/03/19 12:00 18 96 03/03/19 11:37 98.1 F 78 18 194/89 96 Home Medications Medication Instructions Recorded Confirmed Last Taken Type Metoprolol Succinate 50 mg 50 mg PO BID 03/03/19 03/03/19 03/02/19 History [Toprol Xl 50 MG] Current Medications Generic Name Dose Route Start Last Admin Trade Name Freq PRN Reason Stop Dose Admin Acetaminophen 650 mg 03/03/19 07:15 03/03/19 22:03 Tylenol 325 Mg PO 04/02/19 07:14 650 mg Q4H PRN PRN Administration PAIN AND/OR FEVER Al Hydrox/Mg Hydrox/Simethicone 30 ml 03/03/19 07:15 Maalox Es 30 Ml Unit Dose PO 04/02/19 07:14 Q4H PRN PRN INDIGESTION Alprazolam 0.25 mg 03/03/19 10:30 Xanax 0.25 Mg PO 04/02/19 10:29 TIDPRN PRN ANXIETY Amlodipine Besylate 5 mg 03/04/19 08:49 Norvasc 5 Mg PO 04/03/19 08:48 QAM LOKESH Aspirin 81 mg 03/03/19 10:00 03/03/19 11:55 Ecotrin 81 Mg PO 04/02/19 09:59 81 mg DAILY LOKESH Administration Enoxaparin Sodium 40 mg 03/03/19 10:00 03/03/19 09:46 Enoxaparin Sodium SQ 04/02/19 09:59 40 mg DAILY LOKESH Administration Fenofibrate 145 mg 03/03/19 22:00 03/03/19 22:06 Tricor 145 Mg PO 04/02/19 21:59 145 mg HS LOKESH Administration Levothyroxine Sodium 75 mcg 03/03/19 10:00 03/03/19 11:55 Synthroid 75 Mcg PO 04/02/19 09:59 75 mcg DAILY LOKESH Administration Loratadine 10 mg 03/03/19 10:24 Claritin 10 Mg PO 04/02/19 10:23 DAILY PRN PRN ALLERGIES Magnesium Hydroxide 30 - 60 ml 03/03/19 07:15 Milk Of Magnesia 30 Ml PO 04/02/19 07:14 QDP PRN CONSTIPATION Megestrol Acetate 40 mg 03/03/19 11:00 03/03/19 22:06 Megace 40 Mg/Ml PO 04/02/19 10:59 40 mg QID LOKESH Administration Metoprolol Succinate 50 mg 03/03/19 10:00 03/03/19 22:05 Toprol Xl 50 Mg PO 04/02/19 09:59 50 mg BID LOKESH Administration Ondansetron HCl 4 mg 03/03/19 07:15 03/03/19 17:18 Zofran 4 Mg/2 Ml Vial IV 06/25/19 07:14 4 mg Q4H PRN PRN Administration NAUSEA/VOMITING Pantoprazole Sodium 40 mg 03/03/19 22:00 03/03/19 22:05 Protonix 40mg Tablet PO 04/02/19 21:59 40 mg HS LOKESH Administration Senna/Docusate Sodium 2 udtab 03/03/19 07:15 Senokot-S Tablet PO 04/02/19 07:14 BID PRN PRN CONSTIPATION Sodium Chloride 10 ml 03/04/19 06:00 03/04/19 06:11 Sodium Chloride 0.9% 10 Ml Flush Syringe IV 04/03/19 05:59 10 ml Q8HT LOKESH Administration Valsartan 160 mg 03/03/19 22:00 03/03/19 22:04 Diovan 80 Mg PO 04/02/19 21:59 160 mg HS LOKESH Administration Discontinued Medications Generic Name Dose Route Start Last Admin Trade Name Freq PRN Reason Stop Dose Admin Hydralazine HCl 10 mg 03/03/19 06:53 03/03/19 08:32 Apresoline 20 Mg/Ml Inj IV 03/03/19 06:54 Not Given STAT ONE Hydralazine HCl 10 mg 03/03/19 12:12 03/03/19 12:28 Apresoline 20 Mg/Ml Inj IV 03/03/19 12:13 10 mg STAT ONE Administration Sodium Chloride 1,000 mls @ 100 mls/hr 03/03/19 02:30 03/03/19 07:59 Sodium Chloride 0.9% 1000 Ml IV 04/02/19 02:29 Infused .Q10H LOKESH Infusion Sodium Chloride 500 mls @ 20 mls/hr 03/03/19 07:15 03/03/19 08:32 Sodium Chloride 0.9% 500 Ml IV 04/02/19 07:14 Not Given .Q24H LOKESH Lorazepam 0.5 mg 03/03/19 02:28 03/03/19 03:20 Ativan 0.5 Mg PO 03/03/19 02:29 0.5 mg STAT ONE Administration Lorazepam Confirm 03/03/19 03:11 Ativan 1 Mg Administered 03/03/19 03:12 Dose 1 mg .ROUTE .STK-MED ONE Lorazepam Confirm 03/03/19 03:27 Ativan 1 Mg Administered 03/03/19 03:28 Dose 1 mg .ROUTE .STK-MED ONE Lorazepam 1 mg 03/03/19 04:29 03/03/19 04:38 Ativan 1 Mg PO 03/03/19 04:30 1 mg STAT ONE Administration Lorazepam Confirm 03/03/19 04:38 Ativan 1 Mg Administered 03/03/19 04:39 Dose 1 mg .ROUTE .STK-MED ONE Valsartan 160 mg 03/03/19 07:10 03/03/19 07:26 Diovan 80 Mg PO 03/03/19 07:11 160 mg DAILY STA Administration Intake & Output (Last 24 hours) 03/01/19 03/02/19 03/03/19 03/04/19 11:59 11:59 11:59 11:59 Intake Total 240 1020 Output Total 1200 Balance 240 -180 Weight 66.9 kg Microbiology Results (Last 24 hours) 03/03/19 02:35 Clean Catch Midstream Urine Culture - Preliminary NO GROWTH TO DATE Laboratory Results (Last 24 hours) 03/04/19 03/03/19 03/03/19 06:29 14:35 11:23 Troponin I 0.061 H* 0.076 H* Triglycerides 132 Cholesterol 183 LDL Cholesterol 133 H HDL Cholesterol 31 L Heart Disease Risk Ratio 5.9 03/03/19 08:25 Troponin I 0.068 H* Triglycerides Cholesterol LDL Cholesterol HDL Cholesterol Heart Disease Risk Ratio Orders (Last 24 hours) Category Date Time Status LIPID PROFILE AM.LAB Lab 03/04/19 06:29 Completed TROPONIN Q3H Lab 03/03/19 08:25 Completed TROPONIN Q3H Lab 03/03/19 11:23 Completed TROPONIN Q3H Lab 03/03/19 14:35 Completed Alprazolam 0.25 mg [xanAX 0.25 MG] Med 03/03/19 10:30 Active 0.25 mg PO TIDPRN PRN Amlodipine Besylate 5 mg [Norvasc 5 mg] Med 03/04/19 08:49 Active 5 mg PO QAM Aspirin EC 81 mg [Ecotrin 81 mg] Med 03/03/19 10:00 Active 81 mg PO DAILY Enoxaparin Sodium [Enoxaparin Sodium] Med 03/03/19 10:00 Active 40 mg SQ DAILY Fenofibrate,Micronized 145 mg* [Tricor 145 MG] Med 03/03/19 22:00 Active 145 mg PO HS HydrALAzine HCL 20 MG INJ [Apresoline 20 mg/ml Inj Med 03/03/19 12:12 Discontinued *] 10 mg IV STAT ONE Levothyroxine Sodium 75 Mcg [Synthroid 75 Mcg] Med 03/03/19 10:00 Active 75 mcg PO DAILY Loratadine 10 mg [Claritin 10 mg] Med 03/03/19 10:24 Active 10 mg PO DAILY PRN PRN Megestrol Acetate 40 mg/ml [Megace 40 MG/ML] Med 03/03/19 11:00 Active 40 mg PO QID Metoprolol Succinate 50 mg [Toprol Xl 50 MG] Med 03/03/19 10:00 Active 50 mg PO BID NaCl 0.9% 10 ML FLUSH [Sodium Chloride 0.9% 10 ML FLUSH Med 03/04/19 06:00 Active Syringe] 10 ml IV Q8HT PANTOPRAZOLE 40 mg Tablet [Protonix 40MG Tablet] Med 03/03/19 22:00 Active 40 mg PO HS Valsartan 80 mg [Diovan 80 mg] Med 03/03/19 22:00 Active 160 mg PO HS EKG ONCE RT 03/03/19 14:30 Completed EKG ONCE RT 03/04/19 05:00 Completed EKG ONCE RT 03/05/19 05:00 Active Patient Care Notes (Last 24 hours) 03/03/19 12:15 Nursing Note by Aline Mota dr. updated on troponin and blood pressure-meds reviewed-apresaline ordered. Initialized on 03/03/19 12:15 - END OF NOTE 03/03/19 10:20 (created 03/03/19 14:26) Nursing Note by Aline Mota bed alarm noted-pt found trying to get out of bed on her own. pt reminded to call for assistance when she needs to get out of bed. pt assisted to bathroom, voided without difficulty and then back to bed with bed alarm on. Initialized on 03/03/19 14:26 - END OF NOTE 03/03/19 09:09 Nursing Note by Aline Mota dr. updated on troponin lvl 0.068-no new orders, pt denies chest pain. Initialized on 03/03/19 09:09 - END OF NOTE Patient has remained asymptomatic rest of the hospital course. Troponin followed downward pattern toward normalcy. - Vitals & Intake/Output Vital Signs: Vital Signs Temperature 98.7 F 03/04/19 07:59 Pulse Rate 65 03/04/19 07:59 Respiratory Rate 17 03/04/19 07:59 Blood Pressure 199/87 03/04/19 07:59 O2 Sat by Pulse Oximetry 98 03/04/19 07:59 Intake & Output: Intake & Output 03/01/19 03/02/19 03/03/19 03/04/19 11:59 11:59 11:59 11:59 Intake Total 240 1020 Output Total 1200 Balance 240 -180 Weight 66.9 kg - Lab Result Diagrams: 03/03/19 02:18 03/03/19 02:18 Lab Results-Last 24 Hrs: Lab Results-Last 24 Hours 03/03/19 03/03/19 03/03/19 Range/Units 08:25 11:23 14:35 Troponin I 0.068 H* 0.076 H* 0.061 H* (0.000-0.034) ng/mL Triglycerides (30-150) mg/dL Cholesterol (50-200) mg/dL LDL Cholesterol (30-100) mg/dL HDL Cholesterol (40-60) mg/dL Heart Disease Risk Ratio 03/04/19 Range/Units 06:29 Troponin I (0.000-0.034) ng/mL Triglycerides 132 (30-150) mg/dL Cholesterol 183 (50-200) mg/dL LDL Cholesterol 133 H (30-100) mg/dL HDL Cholesterol 31 L (40-60) mg/dL Heart Disease Risk Ratio 5.9 Micro Results-Entire Visit: Microbiology 03/03/19 02:35 Urine Culture - Preliminary Clean Catch Midstream NO GROWTH TO DATE - Radiology Exams Ordered Rad Exams-Entire Visit: Radiology Procedures Category Date Time Status CHEST 1 VIEW (PORTABLE) Stat Exams 03/03/19 02:19 Completed CHEST WITH CONTRAST [CT] Stat Exams 03/03/19 05:10 Completed - Procedures and Test Procedures and Tests throughout Hospitalization: Therapy Orders & Screens 03/03/19 14:30 EKG ONCE Comment: Diagnosis: r/o VT 03/04/19 05:00 EKG ONCE Comment: Diagnosis: r/o VT 03/05/19 05:00 EKG ONCE Comment: Diagnosis: r/o VT - Discharge Discharge Date: 03/04/19 Disposition: Home, Self-Care Condition: Stable Prescriptions: Continue Megestrol Acetate 40 mg [Megace 40 MG] 40 mg PO QID Alprazolam 0.25 mg [xanAX 0.25 MG] 0.25 mg PO TIDPRN Omeprazole 40 mg PO HS Valsartan [Diovan] 160 mg PO HS Levothyroxine Sodium 75 Mcg [Synthroid 75 Mcg] 75 mcg PO DAILY Loratadine [Claritin] 10 mg PO DAILY PRN PRN PRN Reason: Allergies Fenofibrate,Micronized 145 mg* [Tricor 145 MG] 145 mg PO HS Aspirin 81 gm Chew [Baby Aspirin 81 mg Chew] 81 mg PO DAILY Metoprolol Succinate 50 mg [Toprol Xl 50 MG] 50 mg PO BID Instructions: Angina (DC) Follow up with: JOSE COFFEY MD [Primary Care Provider] - 1 Week (one week follow up)
[2019-03-04] MEDS ORDERED: BABY ASPIRIN 81 MG CHEW PO SCH (10:00)
== END 2019-03-04 09:57 | disposition home or self-care (01) ==
LOC: ED 02:12 → MED SURG 08:08
PROVIDERS: ADMIT General Practice; ATTEND General Practice
DX: R07.9 Chest pain, unspecified (principal); R06.02 Shortness of breath; E03.9 Hypothyroidism, unspecified; I10 Essential (primary) hypertension; E78.5 Hyperlipidemia, unspecified; R74.8 Abnormal levels of other serum enzymes; R79.89 Other specified abnormal findings of blood chemistry; E78.00 Pure hypercholesterolemia, unspecified; Z79.899 Other long term (current) drug therapy
CPT/HCPCS: 36000; 36415; 71045; 71260; 80053; 80061; 81001; 83605; 83690; 83721; 83880; 84484; 85025; 85379; 87086; 93005; 93268; 94760; 96360; 96361; 99285; G0378; J0360; J1650; J2405; A9270-GY

== ENCOUNTER 2019-10-14 16:46 | Observation (INO) | payer MEDICARE ==
[2019-10-14] MEDS ORDERED: Vistaril 50 MG/ML IM ONE (18:41)
--- NOTE | 2019-10-14 18:51 | PCM.HP.ADD ---
Addendum to History & Physical - History & Physical Addendum Addendum to History & Physical: This certifies that the History & Physical in the electronic chart reflects the current health status of the patient. If there are changes in the H&P these changes/exceptions are listed as follows.
[2019-10-14 19:23] LABS: Absolute Neutrophil Ct (ANC) 2.14 (1.4-6.9); BASOPHIL % 0.5 % (0.0-0.4); Basophil (Absolute #) 0.02 (0-0.4); Eosinophil % 4.2 % (0.00-5.0); Eosinophil (Absolute #) 0.16 (0-0.5); Hematocrit 18.8 % (35-47); Lymphocyte (Absolute #) 1.06 (1.0-4.6); Lymphocytes % 27.5 % (24.0-44.0); Mean Cell Volume 77.7 fl (78-100); Mean Corpuscular Hemoglobin 22.7 pg (26-32); Mean Corpuscular Hgb Concent. 29.3 g/dl (32-36); Mean Platelet Volume 9.7 fl (7.5-11.0); Monocyte (Absolute #) 0.47 (0.0-1.3); Monocytes % 12.2 % (0.0-12.0); Neutrophil % 55.6 % (36.0-66.0); Platelet Count 278 K/mm3 (150-450); Red Blood Count 2.42 M/mm3 (4.1-5.4); Red Cell Distribution Width 16.3 % (11.5-14.0); White Blood Count 3.9 K/mm3 (4.0-10.5)
[2019-10-14 19:28] LABS: Hemoglobin 5.5 gm/dl (12.0-16.0)
[2019-10-14 19:45] LABS: ALBUMIN 3.6 g/dL (3.5-5.0); ALKALINE PHOSPHATASE 58 U/L (38-126); BLOOD UREA NITROGEN 18 mg/dL (7-17); CHLORIDE 112 mmol/L (98-107); Calcium 8.5 mg/dL (8.4-10.2); Carbon Dioxide 22 mmol/L (22-30); Creatinine 1 0.94 mg/dL (0.52-1.04); Glucose 103 mg/dL (74-106); SGOT/AST 22 U/L (14-36); SGPT/ALT 13 U/L (0-35); SODIUM 140 mmol/L (137-145); TROPONIN 0.015 ng/mL (0.000-0.034); Total Protein 6.4 g/dL (6.3-8.2)
[2019-10-14] MEDS ORDERED: xanAX 0.25 MG PO PRN (20:28)
[2019-10-14] MEDS: Sodium Chloride 0.9% 1000 ML 1,000 ML IV SCH (20:51)
[2019-10-14 21:25] LABS: ABO TYPING O; Antibody Screen NEGATIVE (NEGATIVE); RH TYPING POSITIVE
[2019-10-14 21:33] LABS: CROSS MATCH (PRBC) COMPATIBLE (COMPATIBLE)
[2019-10-14 21:37] LABS: CROSS MATCH (PRBC) COMPATIBLE (COMPATIBLE)
[2019-10-14] MEDS: Protonix 40MG Tablet PO SCH (21:54)
[2019-10-14] MEDS: NORVASC 5 MG PO SCH (21:54)
[2019-10-14] MEDS: Toprol-Xl 25MG Tablets PO SCH (21:55)
[2019-10-14] MEDS: DIOVAN 80 MG PO SCH (21:55)
[2019-10-14] MEDS: ANTIVERT 25 MG PO SCH (21:55)
[2019-10-15] MEDS: Sodium Chloride 0.9% 1000 ML 1,000 ML IV SCH (04:26)
[2019-10-15 05:56] LABS: Hematocrit 26.1 % (35-47); Hemoglobin 8.1 gm/dl (12.0-16.0)
[2019-10-15] MEDS ORDERED: CLARITIN 10 MG PO PRN (07:07)
[2019-10-15] MEDS ORDERED: MEDICATION INTERVENTION MC SCH (07:15)
--- NOTE | 2019-10-15 08:49 | XRAY ---
Indication: Weakness, impaired memory issues, and dizziness. History lung and vaginal carcinoma. Multiple contiguous axial images obtained through the head without contrast. Comparison: March 03 Again age-appropriate global atrophy and moderate periventricular degenerative micro-ischemia bilaterally. Ventricular system remains prominent but not out of proportion to brain atrophy. No acute intracranial hemorrhage, abnormal extra-axial fluid collection, or mass effect. Fourth ventricle is midline. Bony calvarium intact. Visualized paranasal sinuses and mastoid air cells are clear. Impression: Continued nonacute senile brain.
[2019-10-15] MEDS: ZOCOR 20MG PO SCH (09:43)
[2019-10-15] MEDS: NORVASC 5 MG PO SCH ×2 (09:43→21:51)
[2019-10-15] MEDS: PLAVIX 75 MG Tablet PO SCH (09:43)
[2019-10-15] MEDS: Imdur 30 MG PO SCH (09:43)
[2019-10-15] MEDS: Toprol-Xl 25MG Tablets PO SCH ×2 (09:43→21:52)
[2019-10-15] MEDS: NON-FORMULARY ITEM (Nabumetone [Relafen] 500 MG) PO SCH ×2 (09:44→21:53)
[2019-10-15] MEDS: ANTIVERT 25 MG PO SCH ×3 (09:44→21:50)
[2019-10-15] MEDS: ECOTRIN 81 MG PO SCH (09:44)
[2019-10-15] MEDS ORDERED: Vistaril 50 MG/ML IM ONE (09:52)
[2019-10-15] MEDS ORDERED: BABY ASPIRIN 81 MG CHEW PO SCH (10:00)
[2019-10-15] MEDS ORDERED: NON-FORMULARY ITEM (Megestrol Acetate 40 Mg*** 40 MG) PO SCH (10:00)
--- NOTE | 2019-10-15 10:06 | XRAY ---
Indication: Vertigo. Two-dimensional sonogram and color Doppler imaging of the carotid arteries of the neck performed. Comparison: None Examination of the right carotid circulation demonstrates minimal calcified plaquing at the level of the bulb slightly extending to the origin of internal carotid artery. PSV of the CCA is 92 cm/s. PSV of the ICA is 90 cm/s. ICA/CCA ratio is 1.0. Normal antegrade vertebral artery flow. Examination of the left carotid circulation demonstrates minimal heterogeneous plaque at the level of the bulb extending into the origin of the external and lesser degree internal carotid arteries. PSV of the CCA is 114 cm/s. PSV of the ICA is 77 cm/s. ICA/CCA ratio is 0.7. Normal antegrade vertebral artery flow. Impression: Minimal carotid plaquing bilaterally as detailed. Velocity measurements and ratios are negative for hemodynamically significant flow-limiting stenosis.
[2019-10-15] MEDS: Protonix 40MG Tablet PO SCH (21:51)
[2019-10-15] MEDS: DIOVAN 80 MG PO SCH (21:52)
[2019-10-16 05:00] LABS: ANION GAP 11.4 MEQ/L (5-15); BLOOD UREA NITROGEN 16 mg/dL (7-17); CHLORIDE 110 mmol/L (98-107); Calcium 9.1 mg/dL (8.4-10.2); Carbon Dioxide 23 mmol/L (22-30); Creatinine 1 0.75 mg/dL (0.52-1.04); Glucose 97 mg/dL (74-106); Potassium 3.6 mmol/L (3.5-5.1); SODIUM 141 mmol/L (137-145)
[2019-10-16] MEDS: NORVASC 5 MG PO SCH ×2 (09:38→21:08)
[2019-10-16] MEDS: ZOCOR 20MG PO SCH (09:38)
[2019-10-16] MEDS: PLAVIX 75 MG Tablet PO SCH (09:38)
[2019-10-16] MEDS: Toprol-Xl 25MG Tablets PO SCH ×2 (09:38→21:08)
[2019-10-16] MEDS: ANTIVERT 25 MG PO SCH ×3 (09:38→21:10)
[2019-10-16] MEDS: ECOTRIN 81 MG PO SCH (09:39)
[2019-10-16] MEDS: Imdur 30 MG PO SCH (09:39)
[2019-10-16] MEDS: NON-FORMULARY ITEM (Nabumetone [Relafen] 500 MG) PO SCH ×2 (09:40→21:13)
--- NOTE | 2019-10-16 16:58 | XRAY ---
Indication: Dizziness. Possible stroke. Sagittal, coronal, and axial MRI brain was performed using pre-and post T1, T2, FLAIR, diffusion, and ADC sequences. 10 cc Dotarem contrast used. Comparison: None Age-appropriate global atrophy and moderate periventricular degenerative micro-ischemia signal bilaterally. No acute intracranial hemorrhage, abnormal extra-axial fluid collection, or mass effect. Diffusion images are negative for restricted signal. Following gadolinium, there is no abnormal enhancing intra or extra-axial mass. Fourth ventricle is midline without hydrocephalus. 7/8 cranial nerve complex bilaterally symmetric. Normal flow void signal within the major intracerebral circulation. Normal appearing craniocervical junction and sella turcica. Paranasal sinuses are clear. Impression: 1. Normal aging brain including atrophy and degenerative micro-ischemia. 2. No acute intracranial abnormalities or evidence for evolving large vessel territorial stroke. 3. Negative contrast exam.
[2019-10-16] MEDS: PATIENT OWN MEDICATION PO SCH ×2 (17:34→21:10)
[2019-10-16] MEDS: Protonix 40MG Tablet PO SCH (21:08)
[2019-10-16] MEDS: DIOVAN 80 MG PO SCH (21:09)
[2019-10-17 05:11] LABS: Hematocrit 25.4 % (35-47); Hemoglobin 7.8 gm/dl (12.0-16.0); Mean Cell Volume 80.6 fl (78-100); Mean Corpuscular Hemoglobin 24.8 pg (26-32); Mean Corpuscular Hgb Concent. 30.7 g/dl (32-36); Mean Platelet Volume 10.2 fl (7.5-11.0); Platelet Count 254 K/mm3 (150-450); Red Blood Count 3.15 M/mm3 (4.1-5.4); Red Cell Distribution Width 18.7 % (11.5-14.0); White Blood Count 5.3 K/mm3 (4.0-10.5)
[2019-10-17] MEDS: ANTIVERT 25 MG PO SCH ×2 (09:50→14:22)
[2019-10-17] MEDS: Toprol-Xl 25MG Tablets PO SCH (09:51)
[2019-10-17] MEDS: Imdur 30 MG PO SCH (09:51)
[2019-10-17] MEDS: ZOCOR 20MG PO SCH (09:51)
[2019-10-17] MEDS: NORVASC 5 MG PO SCH (09:51)
[2019-10-17] MEDS: PLAVIX 75 MG Tablet PO SCH (09:51)
[2019-10-17] MEDS: ECOTRIN 81 MG PO SCH (09:52)
[2019-10-17] MEDS: PATIENT OWN MEDICATION PO SCH ×2 (09:56→13:29)
[2019-10-17] MEDS: NON-FORMULARY ITEM (Nabumetone [Relafen] 500 MG) PO SCH (11:31)
[2019-10-17 12:48] VITALS: BP 118/55; PULSE 64; O2SAT 96
--- NOTE | 2019-10-17 13:26 | XRAY ---
Indication: FDC placement. Comparison: March 03, 2019. Portable chest is hyperinflated again with right lung suture material. No focal infiltrate, consolidation, or large effusion. Heart is not enlarged with interval CABG surgery. Bony thorax intact again with mild osteopenia, degenerative changes, old right rib fractures, and new sternotomy wires. Impression: Nonacute hyperinflated chest with chronic features.
== END 2019-10-17 14:30 ==
LOC: MED SURG 16:46
PROVIDERS: ADMIT General Practice; ATTEND General Practice
DX: R42 Dizziness and giddiness (principal); D64.9 Anemia, unspecified; R51 Headache; I10 Essential (primary) hypertension; C54.1 Malignant neoplasm of endometrium; I25.10 Atherosclerotic heart disease of native coronary artery without angina pectoris; Z79.899 Other long term (current) drug therapy; Z79.01 Long term (current) use of anticoagulants
CPT/HCPCS: 36415; 36430; 70450; 70553; 71045; 80048; 80053; 82607; 83540; 83615; 84443; 84484; 85014; 85018; 85025; 85027; 85652; 86850; 86900; 86901; 86922; 93005; 93880; 97110; 97161; 97166; 97530; G0378; P9016; Q3014; J3410; A9270-GY

== ENCOUNTER 2019-10-31 23:23 | Emergency (ER) | payer MEDICARE ==
--- NOTE | 2019-10-31 23:44 | ERPHSYRPT ---
- History of Present Illness Source: patient Exam Limitations: no limitations Physician History: Location: left hip Quality: sharp Radiation: into pelvis Severity: moderate Duration: just [employer] Timing: after fall Modifying factors/associated signs and symptoms: mechanical fall Occurred: just prior to arrival Reason for Fall: slipped Injuries/Pain Location: head, pelvis Loss of Consciousness: other (No LOC) Quality: sharpness Severity of Pain-Max: mild Severity of Pain-Current: mild Allergies/Adverse Reactions: cefaclor [From Ceclor] Allergy (Verified 10/14/19 18:06) Penicillins Allergy (Verified 10/14/19 18:06) celecoxib [From Celebrex] Adverse Reaction (Verified 10/31/19 23:45) codeine Adverse Reaction (Verified 10/14/19 18:06) morphine Adverse Reaction (Verified 10/14/19 18:06) propoxyphene [From Darvon] Adverse Reaction (Verified 10/31/19 23:45) Home Medications: Alprazolam 0.25 mg [xanAX 0.25 MG] 0.25 mg PO TIDPRN 07/19/14 [History] Megestrol Acetate 40 mg [Megace 40 MG] 40 mg PO QID 07/19/14 [History] Valsartan [Diovan] 160 mg PO HS 07/19/14 [History] Aspirin 81 gm Chew [Baby Aspirin 81 mg Chew] 81 mg PO DAILY 03/22/15 [ History] Metoprolol Succinate 50 mg [Toprol Xl 50 MG] 25 mg PO BID 03/03/19 [ History] Amlodipine Besylate [Norvasc] 2.5 mg PO BID 10/14/19 [History] Atorvastatin Calcium [Lipitor 20MG Tablet] 40 mg PO DAILY 10/14/19 [History] Clopidogrel Bisulfate 75 mg [PLAVIX 75 MG Tablet] 75 mg PO DAILY 10/14/19 [History] Isosorbide Mononitrate [Isosorbide Mononitrate ER] 30 mg PO DAILY 10/14/19 [ History] Meclizine HCl 12.5 mg PO TID 10/14/19 [History] Nabumetone [Relafen] 500 mg PO BID 10/14/19 [History] Loratadine 10 mg [Claritin 10 mg] 10 mg PO DAILY 10/31/19 [History] Pantoprazole Sodium [Protonix] 40 mg PO HS 10/31/19 [History] Hx Tetanus, Diphtheria Vaccination/Date Given: (UNKNOWN) Hx Influenza Vaccination/Date Given: Yes Hx Pneumococcal Vaccination/Date Given: Yes - Review of Systems Constitutional: No Fever, No Chills Eyes: No Symptoms Ears, Nose, & Throat: No Symptoms Respiratory: No Cough, No Dyspnea Cardiac: No Chest Pain, No Edema, No Syncope Abdominal/Gastrointestinal: No Abdominal Pain, No Nausea, No Vomiting, No Diarrhea Genitourinary Symptoms: No Dysuria Musculoskeletal: Other (left hip pain, hit her left temporal scalp ), No Back Pain, No Neck Pain Skin: No Rash Neurological: No Dizziness, No Focal Weakness, No Sensory Changes Psychological: No Symptoms Endocrine: No Symptoms All Other Systems: Reviewed and Negative - Past Medical History Pertinent Past Medical History: Yes Neurological History: No Pertinent History ENT History: Cataracts, Macular Degeneration Cardiac History: High Cholesterol Respiratory History: Lung Cancer Endocrine Medical History: Hypothyroidism Musculoskeletal History: Arthritis, Degenerative Disk Disease, Osteoarthritis GI Medical History: Hernia, Pancreatitis, Other History: No Pertinent History Psycho-Social History: Anxiety, Depression, Panic Disorder 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, Other Other Medical History: bowel blockage, - Past Surgical History Past Surgical History: Yes Neuro Surgical History: No Pertinent History Cardiac: No Pertinent History, CABG Respiratory: Lobectomy Gastrointestinal: Appendectomy, Cholecystectomy, Hernia Repair Genitourinary: No Pertinent History Musculoskeletal: Orthopedic Surgery Female Surgical History: Hysterectomy Other Surgical History: upper right lung, knee replacement X2, CABG done March 2019 at [place] - Social History Smoking Status: Never smoker Exposure to second hand smoke: Yes Drug Use: none Patient Lives Alone: No - Nursing Vital Signs Nursing Vital Signs: Initial Vital Signs Temperature 98.2 F 10/31/19 23:34 Pulse Rate 79 10/31/19 23:34 Respiratory Rate 18 10/31/19 23:34 Blood Pressure 145/68 10/31/19 23:34 O2 Sat by Pulse Oximetry 100 10/31/19 23:34 Pain Scale Pain Intensity 0 - [place] Coma Score Best Eye Response ([place]): (4) open spontaneously Best Verbal Response ([place]): (5) oriented Best Motor Response ([place]): (6) obeys commands [place] Total: 15 - Physical Exam General Appearance: no apparent distress, alert Head Injury: no evidence of injury Eye Exam: PERRL/EOMI ENT Exam: airway nml Neck Exam: normal inspection, No tenderness Respiratory/Chest Exam: normal breath sounds, No chest tenderness, No respiratory distress Cardiovascular Exam: normal heart sounds, regular rate/rhythm Gastrointestinal Exam: soft, No tenderness, No distention, No guarding, No ecchymosis Back Exam: normal inspection, No vertebral tenderness Extremity Exam: normal inspection, normal range of motion, pelvis stable, No deformities Neurologic Exam: alert, oriented x 3, cooperative, sensation nml, No motor deficits Skin Exam: normal color, warm, dry SpO2: 100 Comment: No trismus, able to fully extend neck, normal range of motion of neck without pain. Uvula is midline, no swelling of the mouth, noraml oropharynx. No exudate, no signs of meningitis, no floor of mouth swelling, no hot potato voice on exam. No buccal swelling, no gum bleeding, no signs of tooth abscess/infection. left temporal contusion left hip pain. No obvious deformity, sensation intact, 2+ capillary refill, 2 point tactile discrimination intact. decrease strength and range of motion with pain. Compartments are soft, nontender. Overlying skin shows no tenting, bruising, ecchymosis. Ordered Tests: Active Orders 24 hr Category Date Time Status HEAD WITHOUT CONTRAST [CT] Routine Exams 11/01/19 00:46 Taken HIP UNI (2V) INCL PEL IF DONE Routine Exams 11/01/19 01:11 Taken - Progress Progress: improved Progress Note: 10/31/19 23:43 Patient on plavix. We will obtain head CT We marc obtain left hip XR and pelvis XR 11/01/19 01:[address] and XRs negative for acute pathology. Patient's pain improved here. We will discharge back to halfway at this time. They will have follow up imaging next week if symptoms do not improve. - Departure Departure Disposition: Home Clinical Impression: Head contusion Condition: Stable Critical Care Time: No Referrals: GILMA RAMIREZ [Primary Care Provider] - Instructions: Contusion (DC) Additional Instructions: Reexam in 24-48 hours with PCP
[2019-11-01 01:46] VITALS: O2SAT 100
[2019-11-01 01:55] VITALS: BP 172/69; PULSE 82
--- NOTE | 2019-11-01 09:18 | XRAY ---
Indication: Left-sided pain following fall. Multiple contiguous axial images obtained through the head without contrast. Comparison: October 14, 2019. Stable age-appropriate global atrophy and mild periventricular degenerative micro-ischemia bilaterally. Again no acute intracranial hemorrhage,, abnormal extra-axial fluid collection, or mass effect. Fourth ventricle is midline without hydrocephalus. Bony calvarium intact. Visualized paranasal sinuses and mastoid air cells remain clear. Impression: Stable nonacute senile brain. Comment: Preliminary interpretation was made by [facility]. No critical discrepancy.
--- NOTE | 2019-11-01 09:38 | XRAY ---
Indication: Pain following fall. Comparison: AP pelvis May 14, 2018. AP pelvis and 2 views of the left hip again demonstrates osteopenia, lower lumbar degenerative spondylosis, numerous surgical clips, and mesh graft overlying the right pelvis. Progressive worsening moderate/advanced left hip degenerative arthropathy. No other bony, articular, or soft tissue abnormalities. Comment: Preliminary interpretation was made by [facility]. No critical discrepancy.
== END 2019-11-01 02:04 | disposition home or self-care (01) ==
LOC: ED 23:23
DX: S00.93XA Contusion of unspecified part of head, initial encounter (principal); Z79.899 Other long term (current) drug therapy; M25.552 Pain in left hip; W19.XXXA Unspecified fall, initial encounter
CPT/HCPCS: 70450; 73502; 99284

== ENCOUNTER 2019-12-05 04:55 | Emergency (ER) | payer MEDICARE ==
--- NOTE | 2019-12-05 04:57 | ERPHSYRPT ---
- History of Present Illness Time Seen by Provider: 12/05/19 04:57 Source: patient, EMS Exam Limitations: clinical condition Physician History: This is an 79-year-old female resident of [facility] who had a witnessed fall from a standing position directly onto her face. Patient has a history of significant, high level dementia. There was immediate nosebleed which had stopped prior to the patient arriving to this emergency room facility. There was bruising of the nasal bridge and above the left eyebrow. Patient takes 81 mg of aspirin a day but no other anticoagulation therapy. Patient's primary care physician is Dr. Talamantes. The patient is DNR. Patient has no other pain complaints. Occurred: just prior to arrival Reason for Fall: fell from standing pos Injuries/Pain Location: head, face Loss of Consciousness: no loss of consciousness Quality: aching Severity of Pain-Max: mild Severity of Pain-Current: mild Associated Symptoms (Fall): denies symptoms Allergies/Adverse Reactions: cefaclor [From Ceclor] Allergy (Verified 12/05/19 05:26) Penicillins Allergy (Verified 12/05/19 05:26) celecoxib [From Celebrex] Adverse Reaction (Verified 12/05/19 05:26) codeine Adverse Reaction (Verified 12/05/19 05:26) morphine Adverse Reaction (Verified 12/05/19 05:26) propoxyphene [From Darvon] Adverse Reaction (Verified 12/05/19 05:26) Home Medications: Alprazolam 0.25 mg [xanAX 0.25 MG] 0.25 mg PO TIDPRN 07/19/14 [History] Megestrol Acetate 40 mg [Megace 40 MG] 40 mg PO QID 07/19/14 [History] Valsartan [Diovan] 160 mg PO HS 07/19/14 [History] Aspirin 81 gm Chew [Baby Aspirin 81 mg Chew] 81 mg PO DAILY 03/22/15 [ History] Metoprolol Succinate 50 mg [Toprol Xl 50 MG] 25 mg PO BID 03/03/19 [ History] Amlodipine Besylate [Norvasc] 2.5 mg PO BID 10/14/19 [History] Atorvastatin Calcium [Lipitor 20MG Tablet] 40 mg PO DAILY 10/14/19 [History] Clopidogrel Bisulfate 75 mg [PLAVIX 75 MG Tablet] 75 mg PO DAILY 10/14/19 [History] Isosorbide Mononitrate [Isosorbide Mononitrate ER] 30 mg PO DAILY 10/14/19 [ History] Meclizine HCl 12.5 mg PO TID 10/14/19 [History] Nabumetone [Relafen] 500 mg PO BID 10/14/19 [History] Loratadine 10 mg [Claritin 10 mg] 10 mg PO DAILY 10/31/19 [History] Pantoprazole Sodium [Protonix] 40 mg PO HS 10/31/19 [History] Oxybutynin Chloride [Oxybutynin Chloride ER] 5 mg PO HS 12/05/19 [History] Sennosides [Senokot] 1 tab PO DAILY 12/05/19 [History] Zolpidem Tartrate 5 mg [Ambien 5 MG Tablet] 5 mg PO HS 12/05/19 [History] Hx Tetanus, Diphtheria Vaccination/Date Given: (UNKNOWN) Hx Influenza Vaccination/Date Given: Yes Hx Pneumococcal Vaccination/Date Given: Yes - Review of Systems Constitutional: No Symptoms Eyes: No Symptoms Ears, Nose, & Throat: Nose Pain Respiratory: No Symptoms Cardiac: No Symptoms Abdominal/Gastrointestinal: No Symptoms Genitourinary Symptoms: No Symptoms Musculoskeletal: No Symptoms Skin: No Symptoms Neurological: Headache (Mild pain in the area of the left forehead above her left eyebrow) Psychological: No Symptoms Endocrine: No Symptoms Hematologic/Lymphatic: No Symptoms Immunological/Allergic: No Symptoms All Other Systems: Reviewed and Negative - Past Medical History Pertinent Past Medical History: Yes Neurological History: No Pertinent History ENT History: Cataracts, Macular Degeneration Cardiac History: High Cholesterol Respiratory History: Lung Cancer Endocrine Medical History: Hypothyroidism Musculoskeletal History: Arthritis, Degenerative Disk Disease, Osteoarthritis GI Medical History: Hernia, Pancreatitis, Other History: No Pertinent History Psycho-Social History: Anxiety, Depression, Panic Disorder 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, Other Other Medical History: bowel blockage, - Past Surgical History Past Surgical History: Yes Neuro Surgical History: No Pertinent History Cardiac: No Pertinent History, CABG Respiratory: Lobectomy Gastrointestinal: Appendectomy, Cholecystectomy, Hernia Repair Genitourinary: No Pertinent History Musculoskeletal: Orthopedic Surgery Female Surgical History: Hysterectomy Other Surgical History: upper right lung, knee replacement X2, CABG done March 2019 at [place] - Social History Smoking Status: Never smoker Exposure to second hand smoke: Yes Drug Use: none Patient Lives Alone: No - Nursing Vital Signs Nursing Vital Signs: Initial Vital Signs Temperature 99.5 F 12/05/19 04:56 Pulse Rate 69 12/05/19 04:56 Respiratory Rate 19 12/05/19 04:56 Blood Pressure 183/86 12/05/19 04:56 O2 Sat by Pulse Oximetry 100 12/05/19 04:56 Pain Scale Pain Intensity 10 - [place] Coma Score Best Eye Response ([place]): (4) open spontaneously Best Verbal Response ([place]): (5) oriented Best Motor Response ([place]): (6) obeys commands [place] Total: 15 - Physical Exam General Appearance: no apparent distress, alert, anxiety Head Injury: ecchymosis, swelling Eye Exam: PERRL/EOMI, eyes nml inspection ENT Exam: airway nml, evidence of ENT injury (Bruising and swelling of the nasal bridge. No active nosebleed), hearing grossly normal Neck Exam: supple, trachea midline, full range of motion, normal alignment, normal inspection Respiratory/Chest Exam: No chest tenderness, No respiratory distress Gastrointestinal Exam: No tenderness Rectal Exam: not done Back Exam: normal inspection, normal range of motion, No CVA tenderness, No vertebral tenderness Extremity Exam: normal inspection, normal range of motion, pelvis stable Neurologic Exam: alert, oriented x 3, cooperative, front desk host II-XII nml as tested Skin Exam: normal color, warm, dry, No laceration SpO2 Interpretation: normal O2 Delivery: Room Air - Course Nursing assessment & vital signs reviewed: Yes Ordered Tests: Active Orders 24 hr Category Date Time Status CERVICAL SPINE WO CONTRAST [CT] Stat Exams 12/05/19 04:58 Taken FACIAL BONES WO CONTRAST [CT] Stat Exams 12/05/19 04:58 Taken HEAD WITHOUT CONTRAST [CT] Stat Exams 12/05/19 04:58 Taken - Progress Progress: unchanged Progress Note: 12/05/19 06:42 CAT scan of the head reveals no acute intracranial abnormality; CAT scan of the face reveals no acute fracture. There is a left forehead hematoma. CAT scan of the cervical spine reveals no acute fracture. Counseled pt/family regarding: diagnosis, need for follow-up, rad results - Departure Departure Disposition: Home Clinical Impression: Fall, Traumatic hematoma of forehead Condition: Stable Critical Care Time: No Referrals: GILMA RAMIREZ [Primary Care Provider] - Additional Instructions: Ice pack to bruised and swollen areas. Follow-up with primary care physician as needed.
[2019-12-05 06:02] VITALS: O2SAT 99
[2019-12-05 06:49] VITALS: BP 172/84; PULSE 65
--- NOTE | 2019-12-06 07:27 | XRAY ---
Exam: CT of the head without IV contrast from 12/05/2019. CTDI: 53.92 Comparison: CT of the head without IV contrast 11/01/2019. Indication: 79-year-old female fell, prior trauma, left frontal "knot". Technique: Non-IV contrast axial images were obtained through the brain. Reconstructed coronal and sagittal images were created and reviewed. Findings: The lateral and third ventricles are mildly enlarged in a diffuse manner representing no change. No focal mass effect or midline shift is seen. No acute intracranial bleed or abnormal extra-axial fluid collection is seen. Moderate patchy bilateral periventricular and subcortical white matter changes are again seen, likely due to chronic microvascular disease. An acute territorial infarct is not seen. Structures of the posterior fossa appear unremarkable. I again see moderate prominence of the cortical sulci, sylvian fissures, and basilar cisterns. Vascular calcification is seen within the carotid siphons. The calvarium of the skull reveals no evidence of fracture. There is a scalp hematoma overlying the left side of the forehead. The paranasal sinuses appear clear. There is some deviation of the nasal septum toward the left. The mastoid air cells and middle ear cavities appear unremarkable. The orbits appear grossly unremarkable. Impression: 1. Moderate generalized atrophy and chronic microvascular ischemic changes within the periventricular and subcortical white matter are again noted. This is similar to 11/01/2019. 2. A left frontal scalp hematoma is now evident. No underlying fracture of the calvarium of the skull is seen. 3. No acute intracranial bleed or other acute intracranial process is seen.
--- NOTE | 2019-12-06 07:35 | XRAY ---
Exam: CT of the cervical spine without IV contrast from 12/05/2019. CTDI: 37.42 mGy. Comparison: CT of the cervical spine without IV contrast from 08/28/2014. Indication: Patient fell, no history of prior surgery. Technique: Non-IV contrast axial images were obtained through the cervical spine. Reconstructed coronal and sagittal images were created and reviewed. Findings: I see no evidence of acute cervical spine fracture, AP traumatic subluxation, or prevertebral soft tissue swelling. There is moderate to marked multilevel degenerative disc disease at C4-C5, C5-C6, and C6-C7 manifested by interspace narrowing, vacuum disc phenomena, and anterior and posterior vertebral endplate spurring. I also note moderate uncovertebral joint degenerative spurring at C3-C4 on the left and at C4-C5, C5-C6, C6-C7 bilaterally. No cervical ribs are seen. Mild scattered degenerative changes are seen within the facet joints. There is moderate to marked neural foraminal narrowing of varying degree within the mid and lower cervical spine representing no significant change. Bilateral carotid artery vascular calcification is seen. No abnormal cervical lymphadenopathy is seen. The thyroid gland is partially seen. Mild biapical pleural-parenchymal scarring is seen within the lung apices, left greater than right. This is unchanged. Impression: 1. No acute cervical spine fracture, AP subluxation, or jumped facets are seen. 2. Moderate to marked degenerative changes are seen throughout the cervical spine, most pronounced at C4-C5 through C6-C7. This results in varying levels of moderate to marked neural foraminal narrowing. I believe this represents no significant interval change.
--- NOTE | 2019-12-06 07:41 | XRAY ---
Exam: CT of the facial bones without IV contrast from 12/05/2019. CTDI: 38.60 mGy. Comparison: None. Indication: Patient fell and has "knot" in left frontal region, bleeding from nose, no prior surgery. Technique: Non-IV contrast axial images were obtained through the facial bones. Reconstructed coronal and sagittal images were created and reviewed. Findings: No acute facial bone fracture, paranasal sinus air-fluid levels, or other significant sinus opacification is seen. I note some mucosal thickening opposite the uncinate process at the level of the infundibulum of each ostiomeatal complex. Small bilateral mohsen bullosa are seen within the middle nasal turbinates, right greater than left. There is mild deviation of the nasal septum toward the left. I note mild hypertrophy of the inferior nasal turbinates. The globes of each eye and orbital contents appear grossly unremarkable. I again see a moderate scalp hematoma overlying the left side of the forehead. Impression: 1. No acute facial bone fracture or paranasal sinus air-fluid levels are seen. 2. Left forehead scalp hematoma. 3. Other incidental findings, as discussed above.
== END 2019-12-05 07:05 | disposition home or self-care (01) ==
LOC: ED 04:55
DX: S00.83XA Contusion of other part of head, initial encounter (principal); W18.39XA Other fall on same level, initial encounter; Y93.9 Activity, unspecified; Y92.129 Unspecified place in nursing home as the place of occurrence of the external cause; F03.90 Unspecified dementia, unspecified severity, without behavioral disturbance, psychotic disturbance, mood disturbance, and anxiety; Z79.899 Other long term (current) drug therapy; E78.00 Pure hypercholesterolemia, unspecified; Z85.118 Personal history of other malignant neoplasm of bronchus and lung; E03.9 Hypothyroidism, unspecified; F41.9 Anxiety disorder, unspecified; F32.9 Major depressive disorder, single episode, unspecified
CPT/HCPCS: 70450; 70486; 72125; 99283

== ENCOUNTER 2020-05-20 17:37 | Observation (INO) | payer MEDICARE ==
--- NOTE | 2020-05-20 18:12 | ERPHSYRPT ---
- History of Present Illness Time Seen by Provider: 05/20/20 18:00 Source: patient, EMS Exam Limitations: other (dementia) Patient Subjective Stated Complaint: pt here for increase sob at 1100 today, she was covid postive 5 days ago, she also co pain to left knee, no injury Triage Nursing Assessment: pt alert, resp easy, has face mask on, skin w/d/p. abd soft, slight edema lower legs. no cough Physician History: 79 years old female resident of [facility] presented in the ER via EMS with chief complaint of increasing shortness of breath since 11 AM today. Patient is known positive COVID-19 for the last 5 days. Patient reports nonproductive cough for the last 5 days with progressive worsening and now is having shortness of breath, hurts to take a deep breath at resting. Patient is maintaining oxygen saturation around 96% on room air without any signs of distress. Denies fever or chills. She is also complaining of mild generalized chest tightness and discomfort which she relates to repeated coughing. She has arthritis and is complaining of more pain in left knee with some swelling but no pain in the leg or thigh or any swelling. Timing/Duration: today, gradual onset, worse Activities at Onset: rest Severity of Dyspnea-Max: moderate Severity of Dyspnea-Current: moderate Possible Cause: illness exposure Modifying Factors: Improves With: nothing Associated Symptoms: cough, chest pain/discomfort, No leg swelling Allergies/Adverse Reactions: cefaclor [From Ceclor] Allergy (Verified 05/20/20 18:00) Penicillins Allergy (Verified 05/20/20 18:00) celecoxib [From Celebrex] Adverse Reaction (Verified 05/20/20 18:00) codeine Adverse Reaction (Verified 05/20/20 18:00) morphine Adverse Reaction (Verified 05/20/20 18:00) propoxyphene [From Darvon] Adverse Reaction (Verified 05/20/20 18:00) Home Medications: Valsartan [Diovan] 160 mg PO HS 07/19/14 [History] Aspirin 81 gm Chew [Baby Aspirin 81 mg Chew] 81 mg PO DAILY 03/22/15 [History] Metoprolol Succinate 50 mg [Toprol Xl 50 MG] 25 mg PO BID 03/03/19 [History] Amlodipine Besylate [Norvasc] 2.5 mg PO BID 10/14/19 [History] Atorvastatin Calcium [Lipitor 20MG Tablet] 40 mg PO DAILY 10/14/19 [History] Clopidogrel Bisulfate 75 mg [PLAVIX 75 MG Tablet] 75 mg PO DAILY 10/14/19 [History] Isosorbide Mononitrate [Isosorbide Mononitrate ER] 30 mg PO DAILY 10/14/19 [History] Meclizine HCl 12.5 mg PO TID 10/14/19 [History] Pantoprazole Sodium [Protonix] 40 mg PO HS 10/31/19 [History] Oxybutynin Chloride [Oxybutynin Chloride ER] 5 mg PO HS 12/05/19 [History] Sennosides [Senokot] 1 tab PO DAILY 12/05/19 [History] Zolpidem Tartrate 5 mg [Ambien 5 MG Tablet] 5 mg PO HS 12/05/19 [History] Ascorbic Acid 500 mg [Vitamin C 500 MG] 1,000 mg DAILY 05/20/20 [History] Azithromycin 1 ea DAILY 05/20/20 [History] Diclofenac Sodium Gel [Voltaren GEL] 1 ea BID 05/20/20 [History] Ferrous Sulfate 1 ea BID 05/20/20 [History] Magnesium Hydroxide 30 ml [Milk of Magnesia 30 ml] 1 ea DAILY 05/20/20 [History] Nabumetone 1 ea DAILY 05/20/20 [History] Zinc Sulfate 1 ea DAILY 05/20/20 [History] Hx Tetanus, Diphtheria Vaccination/Date Given: (UNKNOWN) Hx Influenza Vaccination/Date Given: Yes Hx Pneumococcal Vaccination/Date Given: Yes Immunizations Up to Date: Yes Travel Risk - International Travel Have you traveled outside of the country in past 3 weeks: No - Coronavirus Screening Close contact with a COVID-19 positive Pt in past 14-21 Days: Yes - Review of Systems Constitutional: Fatigue Eyes: No Symptoms Ears, Nose, & Throat: No Symptoms Respiratory: Cough, Dyspnea Cardiac: Chest Pain Abdominal/Gastrointestinal: No Symptoms Genitourinary Symptoms: No Symptoms Musculoskeletal: Joint Pain Skin: No Symptoms Neurological: No Symptoms Psychological: Anxiety Endocrine: No Symptoms Hematologic/Lymphatic: No Symptoms Immunological/Allergic: No Symptoms - Past Medical History Pertinent Past Medical History: Yes Neurological History: No Pertinent History ENT History: Cataracts, Macular Degeneration Cardiac History: High Cholesterol Respiratory History: Lung Cancer Endocrine Medical History: Hypothyroidism Musculoskeletal History: Arthritis, Degenerative Disk Disease, Osteoarthritis GI Medical History: Hernia, Pancreatitis, Other History: No Pertinent History Psycho-Social History: Anxiety, Depression, Panic Disorder 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, Other Other Medical History: bowel blockage, - Past Surgical History Past Surgical History: Yes Neuro Surgical History: No Pertinent History Cardiac: No Pertinent History, CABG Respiratory: Lobectomy Gastrointestinal: Appendectomy, Cholecystectomy, Hernia Repair Genitourinary: No Pertinent History Musculoskeletal: Orthopedic Surgery Female Surgical History: Hysterectomy Other Surgical History: upper right lung, knee replacement X2, CABG done March 2019 at [facility] - Social History Smoking Status: Never smoker Exposure to second hand smoke: Yes Drug Use: none Patient Lives Alone: No - Female History Hx Last Menstrual Period: post Hx Now: No - Nursing Vital Signs Nursing Vital Signs: Initial Vital Signs Temperature 99.1 F 05/20/20 17:51 Pulse Rate 75 05/20/20 17:51 Respiratory Rate 18 05/20/20 17:51 Blood Pressure 156/106 05/20/20 17:51 O2 Sat by Pulse Oximetry 98 05/20/20 17:51 Pain Scale Pain Intensity 0 - Physical Exam General Appearance: no apparent distress Eye Exam: PERRL/EOMI Ears, Nose, Throat Exam: hearing grossly normal, normal ENT inspection Neck Exam: normal inspection, non-tender, supple, full range of motion Respiratory Exam: normal breath sounds, lungs clear Cardiovascular/Chest Exam: normal heart sounds, regular rate/rhythm Abdominal/Gastrointestinal Exam: soft, normal bowel sounds, No tenderness Extremity Exam: limited range of motion (Left knee), swelling (Left knee), joint swelling, No willie's sign Neurologic Exam: alert, oriented x 3, cooperative Skin Exam: normal color SpO2 Interpretation: normal SpO2: 98 - Course Nursing assessment & vital signs reviewed: Yes EKG Interpreted by Me: RATE (68), Sinus Rhythm, NORMAL AXIS, Other (Right bundle branch block. Borderline QT interval.) Ordered Tests: Active Orders 24 hr Category Date Time Status Bag Builder STAT Care 05/20/20 18:05 Active EKG-ER Only STAT Care 05/20/20 18:04 Active IV Insertion STAT Care 05/20/20 18:04 Active CHEST 1 VIEW (PORTABLE) Stat Exams 05/20/20 18:05 Taken BLOOD CULTURE Stat Lab 05/20/20 18:05 Received CBC W DIFF Stat Lab 05/20/20 18:40 Completed CMP Stat Lab 05/20/20 18:40 Completed CULTURE,URINE Stat Lab 05/20/20 19:16 Received Lactic Acid Stat Lab 05/20/20 18:49 Completed MAGNESIUM Stat Lab 05/20/20 18:40 Completed NT PRO BNP Stat Lab 05/20/20 18:40 Completed TROPONIN Q3H Lab 05/20/20 18:40 Completed TROPONIN Q3H Lab 05/20/20 21:15 Ordered TROPONIN Q3H Lab 05/21/20 00:15 Ordered TROPONIN Q3H Lab 05/21/20 03:15 Ordered TROPONIN Q3H Lab 05/21/20 06:15 Ordered UA W/RFX UR CULTURE Stat Lab 05/20/20 19:16 Completed Respiratory MDI UD RT 05/20/20 19:18 Active Respiratory Therapy Assessment DAILY RT 05/20/20 18:54 Active Transfer Order Routine Transfer 05/20/20 Ordered Medication Summary Generic Name Dose Route Start Last Admin Trade Name Freq PRN Reason Stop Dose Admin Aspirin 324 mg 05/21/20 10:00 05/20/20 18:31 Ecotrin 81 Mg PO 06/20/20 09:59 324 mg DAILY LOKESH Administration Discontinued Medications Generic Name Dose Route Start Last Admin Trade Name Freq PRN Reason Stop Dose Admin Albuterol Sulfate 4 puff 05/20/20 18:52 05/20/20 19:04 Ventolin Common Canister IH 05/20/20 18:53 4 puff ONCE ONE Administration Aspirin Confirm 05/20/20 18:32 Baby Aspirin 81 Mg Chew Administered 05/20/20 18:33 Dose 324 mg .ROUTE .STK-MED ONE Levofloxacin/Dextrose 500 mg in 100 mls @ 100 mls/hr 05/20/20 20:16 05/20/20 20:57 Levofloxacin 500mg/100ml D5w IV 05/20/20 21:15 100 mls/hr STAT STA 100 mls/hr Administration Levofloxacin/Dextrose Confirm 05/20/20 20:42 Levofloxacin 500mg/100ml D5w Administered 05/20/20 20:43 Dose 500 mg in 100 mls @ ud IV .STK-MED ONE Lab/Rad Data: Laboratory Result Diagrams 05/20/20 18:40 05/20/20 18:40 Laboratory Results 05/20/20 05/20/20 05/20/20 Range/Units 19:16 18:49 18:40 WBC (4.0-10.5) K/mm3 RBC (4.1-5.4) M/mm3 Hgb (12.0-16.0) gm/dl Hct (35-47) % MCV (78-100) fl MCH (26-32) pg MCHC (32-36) g/dl RDW (11.5-14.0) % Plt Count (150-450) K/mm3 MPV (7.5-11.0) fl Gran % (36.0-66.0) % Eos # (Auto) (0-0.5) Absolute Lymphs (auto) (1.0-4.6) Absolute Monos (auto) (0.0-1.3) Lymphocytes % (24.0-44.0) % Monocytes % (0.0-12.0) % Eosinophils % (0.00-5.0) % Basophils % (0.0-0.4) % Absolute Granulocytes (1.4-6.9) Basophils # (0-0.4) Sodium (137-145) mmol/L Potassium (3.5-5.1) mmol/L Chloride (98-107) mmol/L Carbon Dioxide (22-30) mmol/L Anion Gap (5-15) MEQ/L BUN (7-17) mg/dL Creatinine (0.52-1.04) mg/dL Estimated GFR ML/MIN Glucose (74-106) mg/dL Lactic Acid 0.9 (0.4-2.0) Calcium (8.4-10.2) mg/dL Magnesium (1.6-2.3) mg/dL Total Bilirubin (0.2-1.3) mg/dL AST (14-36) U/L ALT (0-35) U/L Alkaline Phosphatase (38-126) U/L Troponin I < 0.012 (0.000-0.034) ng/mL NT-Pro-B Natriuret Pep (0-1800) pg/mL Serum Total Protein (6.3-8.2) g/dL Albumin (3.5-5.0) g/dL Urine Color STRAW (YELLOW) Urine Appearance CLEAR (CLEAR) Urine pH 7.0 (5-6) Ur Specific Kingsley 1.003 (1.005-1.025) Urine Protein NEGATIVE (Negative) Urine Ketones NEGATIVE (NEGATIVE) Urine Blood MODERATE (0-5) Ozzy/ul Urine Nitrite NEGATIVE (NEGATIVE) Urine Bilirubin NEGATIVE (NEGATIVE) Urine Urobilinogen NEGATIVE (0-1) mg/dL Ur Leukocyte Esterase TRACE (NEGATIVE) Urine WBC (Auto) 0-2 (0-5) /HPF Urine RBC (Auto) NONE (0-2) /HPF U Epithel Cells (Auto) NONE (FEW) /HPF Urine Bacteria (Auto) NONE SEEN (NEGATIVE) /HPF Urine Culture Reflexed YES (NO) Urine Glucose NEGATIVE (NEGATIVE) mg/dL 05/20/20 05/20/20 Range/Units 18:40 18:40 WBC 2.4 L (4.0-10.5) K/mm3 RBC 3.87 L (4.1-5.4) M/mm3 Hgb 12.7 (12.0-16.0) gm/dl Hct 37.8 (35-47) % MCV 97.7 (78-100) fl MCH 32.8 H (26-32) pg MCHC 33.6 (32-36) g/dl RDW 12.2 (11.5-14.0) % Plt Count 140 L (150-450) K/mm3 MPV 9.5 (7.5-11.0) fl Gran % 49.9 (36.0-66.0) % Eos # (Auto) 0.03 (0-0.5) Absolute Lymphs (auto) 0.82 L (1.0-4.6) Absolute Monos (auto) 0.36 (0.0-1.3) Lymphocytes % 33.7 (24.0-44.0) % Monocytes % 14.8 H (0.0-12.0) % Eosinophils % 1.2 (0.00-5.0) % Basophils % 0.4 (0.0-0.4) % Absolute Granulocytes 1.21 L (1.4-6.9) Basophils # 0.01 (0-0.4) Sodium 136 L (137-145) mmol/L Potassium 3.3 L (3.5-5.1) mmol/L Chloride 103 (98-107) mmol/L Carbon Dioxide 24 (22-30) mmol/L Anion Gap 12.1 (5-15) MEQ/L BUN 9 (7-17) mg/dL Creatinine 0.74 (0.52-1.04) mg/dL Estimated GFR > 60.0 ML/MIN Glucose 89 (74-106) mg/dL Lactic Acid (0.4-2.0) Calcium 8.6 (8.4-10.2) mg/dL Magnesium 1.8 (1.6-2.3) mg/dL Total Bilirubin 0.80 (0.2-1.3) mg/dL AST 30 (14-36) U/L ALT 20 (0-35) U/L Alkaline Phosphatase 112 (38-126) U/L Troponin I (0.000-0.034) ng/mL NT-Pro-B Natriuret Pep 312 (0-1800) pg/mL Serum Total Protein 6.8 (6.3-8.2) g/dL Albumin 3.8 (3.5-5.0) g/dL Urine Color (YELLOW) Urine Appearance (CLEAR) Urine pH (5-6) Ur Specific Kingsley (1.005-1.025) Urine Protein (Negative) Urine Ketones (NEGATIVE) Urine Blood (0-5) Ozzy/ul Urine Nitrite (NEGATIVE) Urine Bilirubin (NEGATIVE) Urine Urobilinogen (0-1) mg/dL Ur Leukocyte Esterase (NEGATIVE) Urine WBC (Auto) (0-5) /HPF Urine RBC (Auto) (0-2) /HPF U Epithel Cells (Auto) (FEW) /HPF Urine Bacteria (Auto) (NEGATIVE) /HPF Urine Culture Reflexed (NO) Urine Glucose (NEGATIVE) mg/dL - Progress Progress: re-examined Air Movement: fair Progress Note: 05/20/20 20:27 79 years old is evaluated for increasing shortness of breath with positive COVID-19 testing 5 days ago. Patient is not in much distress on presentation in the ER. She is given albuterol inhaler. I did not appreciate any focal consolidation on chest x-ray. She has a low white count and platelets which is consistent with COVID-19. She is given a dose of antibiotic. Work-up otherwise is negative. Discussed with Dr. Dodge and patient is being admitted for observation. Blood Culture(s) Obtained: Yes Antibiotics given: Yes Discussed with Dr.: Other () Will see patient in: hospital (observation) Counseled pt/family regarding: lab results, diagnosis, need for follow-up, rad results - Departure Departure Disposition: Observation Clinical Impression: COVID-19 virus detected, Shortness of breath Condition: Stable Critical Care Time: No Referrals: GILMA RAMIREZ [Primary Care Provider] -
[2020-05-20] MEDS ORDERED: BABY ASPIRIN 81 MG CHEW ONE (18:32)
[2020-05-20] MEDS ORDERED: VENTOLIN COMMON CANISTER IH ONE (18:52)
[2020-05-20 19:00] LABS: Absolute Neutrophil Ct (ANC) 1.21 (1.4-6.9); BASOPHIL % 0.4 % (0.0-0.4); Basophil (Absolute #) 0.01 (0-0.4); Eosinophil % 1.2 % (0.00-5.0); Eosinophil (Absolute #) 0.03 (0-0.5); Hematocrit 37.8 % (35-47); Hemoglobin 12.7 gm/dl (12.0-16.0); Lymphocyte (Absolute #) 0.82 (1.0-4.6); Lymphocytes % 33.7 % (24.0-44.0); Mean Cell Volume 97.7 fl (78-100); Mean Corpuscular Hemoglobin 32.8 pg (26-32); Mean Corpuscular Hgb Concent. 33.6 g/dl (32-36); Mean Platelet Volume 9.5 fl (7.5-11.0); Monocyte (Absolute #) 0.36 (0.0-1.3); Monocytes % 14.8 % (0.0-12.0); Neutrophil % 49.9 % (36.0-66.0); Platelet Count 140 K/mm3 (150-450); Red Blood Count 3.87 M/mm3 (4.1-5.4); Red Cell Distribution Width 12.2 % (11.5-14.0); White Blood Count 2.4 K/mm3 (4.0-10.5)
[2020-05-20 19:23] LABS: ALBUMIN 3.8 g/dL (3.5-5.0); ALKALINE PHOSPHATASE 112 U/L (38-126); ANION GAP 12.1 MEQ/L (5-15); BLOOD UREA NITROGEN 9 mg/dL (7-17); CHLORIDE 103 mmol/L (98-107); Calcium 8.6 mg/dL (8.4-10.2); Carbon Dioxide 24 mmol/L (22-30); Creatinine 1 0.74 mg/dL (0.52-1.04); Glucose 89 mg/dL (74-106); MAGNESIUM 1.8 mg/dL (1.6-2.3); NT PRO BNP 312 pg/mL (0-1800); Potassium 3.3 mmol/L (3.5-5.1); SGOT/AST 30 U/L (14-36); SGPT/ALT 20 U/L (0-35); SODIUM 136 mmol/L (137-145); Total Protein 6.8 g/dL (6.3-8.2)
[2020-05-20 19:28] LABS: Appearance CLEAR (CLEAR); Bilirubin NEGATIVE (NEGATIVE); Blood MODERATE Ery/ul (0-5); Glucose NEGATIVE (NEGATIVE); Ketones NEGATIVE (NEGATIVE); Leukocyte Esterase TRACE (NEGATIVE); Nitrite NEGATIVE (NEGATIVE); Protein,Urine Dip NEGATIVE (Negative); Specific Gravity 1.003 (1.005-1.025); Urobilinogen NEGATIVE mg/dL (0-1); WBC 0-2 /HPF (0-5)
[2020-05-20 19:38] LABS: Bacteria NONE SEEN /HPF (NEGATIVE)
[2020-05-20] MEDS ORDERED: Levofloxacin 500MG/100ML D5W 500 MG/100 ML BAG IV STA (20:16)
[2020-05-20] MEDS ORDERED: Levofloxacin 500MG/100ML D5W 500 MG/100 ML BAG IV ONE (20:42)
[2020-05-20] MEDS ORDERED: HUMALOG SQ PRN (21:41)
[2020-05-20] MEDS ORDERED: Ambien 5 MG Tablet ONE (22:42)
[2020-05-20] MEDS ORDERED: DIOVAN 80 MG ONE (22:42)
[2020-05-20] MEDS ORDERED: Ditropan 5 MG ONE (22:42)
[2020-05-20] MEDS: Pepcid 20 MG VIAL IV SCH (22:45)
[2020-05-20] MEDS ORDERED: Ambien 5 MG Tablet PO SCH (22:48)
[2020-05-20] MEDS ORDERED: Ditropan XL 5 MG PO SCH (22:48)
[2020-05-20] MEDS: NORVASC 5 MG PO SCH (22:53)
[2020-05-20] MEDS: Toprol-Xl 25MG Tablets PO SCH (22:56)
[2020-05-20] MEDS: ANTIVERT 25 MG PO SCH (22:57)
[2020-05-21 05:45] LABS: Absolute Neutrophil Ct (ANC) 1.69 (1.4-6.9); Basophil (Absolute #) 0 (0-0.4); Eosinophil % 1.1 % (0.00-5.0); Eosinophil (Absolute #) 0.03 (0-0.5); Hematocrit 38.7 % (35-47); Hemoglobin 12.9 gm/dl (12.0-16.0); Lymphocyte (Absolute #) 0.67 (1.0-4.6); Lymphocytes % 23.9 % (24.0-44.0); Mean Cell Volume 96.8 fl (78-100); Mean Corpuscular Hemoglobin 32.3 pg (26-32); Mean Corpuscular Hgb Concent. 33.3 g/dl (32-36); Mean Platelet Volume 9.9 fl (7.5-11.0); Monocyte (Absolute #) 0.41 (0.0-1.3); Monocytes % 14.6 % (0.0-12.0); Neutrophil % 60.4 % (36.0-66.0); Platelet Count 136 K/mm3 (150-450); Red Cell Distribution Width 12.4 % (11.5-14.0); White Blood Count 2.8 K/mm3 (4.0-10.5)
[2020-05-21 06:02] LABS: ALBUMIN 3.6 g/dL (3.5-5.0); ALKALINE PHOSPHATASE 107 U/L (38-126); ANION GAP 11.6 MEQ/L (5-15); BLOOD UREA NITROGEN 9 mg/dL (7-17); CHLORIDE 105 mmol/L (98-107); Calcium 8.3 mg/dL (8.4-10.2); Carbon Dioxide 23 mmol/L (22-30); Creatinine 1 0.66 mg/dL (0.52-1.04); Glucose 95 mg/dL (74-106); Potassium 3.3 mmol/L (3.5-5.1); SGOT/AST 27 U/L (14-36); SGPT/ALT 19 U/L (0-35); SODIUM 137 mmol/L (137-145); Total Protein 6.6 g/dL (6.3-8.2)
[2020-05-21] MEDS ORDERED: VENTOLIN COMMON CANISTER IH SCH (07:00)
[2020-05-21 08:03] VITALS: O2SAT 97
--- NOTE | 2020-05-21 08:45 | XRAY ---
Indication: Short of breath. Comparison: October 17, 2019. Portable apical lordotic chest unchanged again hyperinflated and clear with incidental right lung postsurgical changes and a few scattered tiny calcified granulomas. Heart is not enlarged for AP portable technique again with CABG surgery. Bony thorax intact again with osteopenia, degenerative changes, and old right rib fractures. Impression: Continued nonacute hyperinflated chest with chronic features.
[2020-05-21] MEDS: Ecotrin 325 MG PO SCH ×2 (09:01→09:02)
[2020-05-21] MEDS: NORVASC 5 MG PO SCH (09:02)
[2020-05-21] MEDS: Toprol-Xl 25MG Tablets PO SCH (09:02)
[2020-05-21] MEDS: ANTIVERT 25 MG PO SCH (09:03)
[2020-05-21] MEDS: Pepcid 20 MG VIAL IV SCH (09:04)
[2020-05-21] MEDS ORDERED: NABUMETONE PO SCH (10:00)
[2020-05-21] MEDS ORDERED: ANTIVERT 25 MG PO SCH (10:00)
[2020-05-21] MEDS ORDERED: Toprol-Xl 25MG Tablets PO SCH (10:00)
[2020-05-21] MEDS ORDERED: ECOTRIN 81 MG PO SCH (10:00)
[2020-05-21] MEDS ORDERED: ENOXAPARIN SODIUM SQ SCH (10:00)
[2020-05-21] MEDS ORDERED: Imdur 30 MG PO SCH (10:00)
[2020-05-21] MEDS ORDERED: NORVASC 5 MG PO SCH (10:00)
[2020-05-21] MEDS ORDERED: Voltaren GEL TOP SCH (10:00)
[2020-05-21] MEDS ORDERED: MILK OF MAGNESIA 30 ML PO SCH (10:00)
[2020-05-21] MEDS ORDERED: PLAVIX 75 MG Tablet PO SCH (10:00)
[2020-05-21] MEDS ORDERED: ZOCOR 20MG PO SCH (10:00)
[2020-05-21 10:37] VITALS: BP 121/63; PULSE 71
[2020-05-21] MEDS ORDERED: Ditropan XL 5 MG PO SCH ×2 (22:00)
[2020-05-21] MEDS ORDERED: Levofloxacin 500MG/100ML D5W 500 MG/100 ML BAG IV SCH (22:00)
[2020-05-21] MEDS ORDERED: DIOVAN 80 MG PO SCH (22:00)
[2020-05-21] MEDS ORDERED: Protonix 40MG Tablet PO SCH (22:00)
[2020-05-21] MEDS ORDERED: Ambien 5 MG Tablet PO SCH (22:00)
--- NOTE | 2020-05-27 12:25 | SSS ---
DISCHARGE DIAGNOSES: 1) COVID. 2) DEMENTIA. 3) INCREASED HYPOXIA. HISTORY: The patient is an 79 year old white female who has had COVID for two or three days out at [facility]. Apparently she became more confused. She always very confused and perhaps more short of breath and was sent to the emergency room. This was the [facility] first group of COVID patients. In the emergency room the she did not know exactly where she was at as she is very confused. She was not severely hypoxic. She running 90 on room air I believe. She had no specific complaints however she is very confused, agitated and able to walk around. MEDICATIONS: Norvasc 2.5 b.i.d., vitamin C, baby aspirin, atorvastatin 20 q.d., Z-Marcin, Plavix 75, Voltaren gel to knees b.i.d., ferrous sulfate iron, isosorbide 20 q.d., Mag-Ox, magnesium hydroxide 30 constipation, meclizine 12.5 t.i.d., metoprolol 50 one-half b.i.d., Nabumetone 20 q.d., oxybutynin 5 h.s., Protonix 20 h.s., Senokot 1 q.d., Diovan 150 h.s., zinc sulfate, Ambien 5 h.s. ALLERGIES: CEFACLOR. PENICILLIN. CELECOXIB. CODEINE. PROPOXYPHENE. PAST MEDICAL HISTORY: COVID diagnosed two days ago. Spastic bladder. Hypertension. Vitamin C to prevent infection. REVIEW OF SYSTEMS: HEENT: Seems to hear and see okay. CHEST: Occasionally coughing. No severe hypoxia. CVS: No exertional chest pain or palpitations. She is on Plavix. I wonder if she had a myocardial infarction. There is no history here. ABDOMEN: No nausea or vomiting. The patient did eat breakfast here as I observed. EXTREMITIES: Moving all. HOSPITAL COURSE: She is strong. She is very active. Takes off her clothes and has taken out her [place] catheter, IV, takes her oxygen off. She is in no distress except for anxiety. We kept her on oral medications, observed overnight. She is certainly stable. She is not getting worse, a very pleasant lady unfortunately with rather severe dementia and will return back to [facility] with the same medications to call if her O2 saturations drop or any other significant problems occur.
== END 2020-05-21 11:05 ==
LOC: ED 17:37 → MED SURG 21:36
PROVIDERS: ADMIT Family Medicine; ATTEND Family Medicine
DX: U07.1 COVID-19 (principal); F03.90 Unspecified dementia, unspecified severity, without behavioral disturbance, psychotic disturbance, mood disturbance, and anxiety; R05 Cough; R09.02 Hypoxemia; M25.562 Pain in left knee; R53.83 Other fatigue; E03.9 Hypothyroidism, unspecified; E78.00 Pure hypercholesterolemia, unspecified; Z79.01 Long term (current) use of anticoagulants; Z79.899 Other long term (current) drug therapy; I10 Essential (primary) hypertension
CPT/HCPCS: 36000; 36415; 71045; 80053; 81001; 82962; 83605; 83735; 83880; 84484; 85025; 87040; 87086; 93005; 93041; 93268; 94640; 94762; 96365; 99285; G0378; 96374; J1650; J1956; A9270-GY

== ENCOUNTER 2021-11-15 06:32 | Emergency (ER) | payer MEDICARE ==
[2021-11-15] MEDS ORDERED: Sodium Chloride 0.9% 1000 ML 1,000 ML IV SCH (07:00)
[2021-11-15 07:02] LABS: Absolute Neutrophil Ct (ANC) 3.11 (1.4-6.9); Basophil (Absolute #) 0.01 (0-0.4); Eosinophil % 2.7 % (0.00-5.0); Eosinophil (Absolute #) 0.15 (0-0.5); Hematocrit 39.9 % (35-47); Lymphocyte (Absolute #) 1.76 (1.0-4.6); Lymphocytes % 31.7 % (24.0-44.0); Mean Cell Volume 98.5 fl (78-100); Mean Corpuscular Hemoglobin 32.1 pg (26-32); Mean Corpuscular Hgb Concent. 32.6 g/dl (32-36); Monocyte (Absolute #) 0.53 (0.0-1.3); Monocytes % 9.5 % (0.0-12.0); Neutrophil % 55.9 % (36.0-66.0); Platelet Count 187 K/mm3 (150-450); Red Blood Count 4.05 M/mm3 (4.1-5.4); Red Cell Distribution Width 13.9 % (11.5-14.0); White Blood Count 5.6 K/mm3 (4.0-10.5)
--- NOTE | 2021-11-15 07:03 | ERPHSYRPT ---
<FORE[employer]ORGE[employer]EN [employer]UBBS - Last Filed: 11/15/21 06:58> - History of Present Illness Time Seen by Provider: 11/15/21 06:58 Historian: patient, EMS Exam Limitations: no limitations Patient Subjective Stated Complaint: chest pain Triage Nursing Assessment: pt woke up with midsteral chest pain, radiating to neck. Pt took 2 baby asa at home and EMS gave her 4 baby asa. Pt's chest pain at home was a 10 but was a 0 by time of arrival to ER. Lung jones clear, heart tones irregular. Pt has 3-4+ pitting edema to bilat lower ext/feet. Pt is alert and oriented x2 to person and place. Pt has month wrong and unsure of year. Pt is a poor historian. Physician History: pt began with chest pain this am which resolved enroute by EMS after ASA. No nitro today. She has CAD with prior bypasses by Hx. Timing/Duration: today Activities at Onset: none Quality: pressure, tightness Location: substernal Chest Pain Radiation: neck Severity of Pain-Max: moderate Modifying Factors: Improves With: nothing Nitro Today/Relief: no nitro taken today Aspirin Treatment Today: 81 mg x 4, provided by EMS Allergies/Adverse Reactions: cefaclor [From Ceclor] Allergy (Verified 11/15/21 06:57) Penicillins Allergy (Verified 11/15/21 06:57) acetaminophen [From Vicodin] Adverse Reaction (Verified 11/15/21 06:57) celecoxib [From Celebrex] Adverse Reaction (Verified 11/15/21 06:57) codeine Adverse Reaction (Verified 11/15/21 06:57) hydrocodone [From Vicodin] Adverse Reaction (Verified 11/15/21 06:57) morphine Adverse Reaction (Verified 11/15/21 06:57) propoxyphene [From Darvon] Adverse Reaction (Verified 11/15/21 06:57) Home Medications: Valsartan [Diovan] 160 mg PO HS 07/19/14 [History] Aspirin 81 gm Chew [Baby Aspirin 81 mg Chew] 81 mg PO DAILY 03/22/15 [History] Metoprolol Succinate 50 mg [Toprol Xl 50 MG] 25 mg PO HS 03/03/19 [History] Atorvastatin Calcium [Lipitor 20MG Tablet] 40 mg PO DAILY 10/14/19 [History] Clopidogrel Bisulfate 75 mg [PLAVIX 75 MG Tablet] 75 mg PO DAILY 10/14/19 [History] Isosorbide Mononitrate [Isosorbide Mononitrate ER] 30 mg PO DAILY 10/14/19 [History] Meclizine HCl 12.5 mg PO QID 10/14/19 [History] Oxybutynin Chloride [Oxybutynin Chloride ER] 5 mg PO HS 12/05/19 [History] Sennosides [Senokot] 1 tab PO DAILY 12/05/19 [History] hydroCHLOROthiazide [Hydrochlorothiazide] 12.5 mg PO DAILY 11/15/21 [History] Hx Tetanus, Diphtheria Vaccination/Date Given: Yes Hx Influenza Vaccination/Date Given: Yes Hx Pneumococcal Vaccination/Date Given: Yes Immunizations Up to Date: Yes Travel Risk - International Travel Have you traveled outside of the country in past 3 weeks: No - Coronavirus Screening Are you exhibiting any of the following symptoms?: No Close contact with a COVID-19 positive Pt in past 14-21 Days: Yes - Vaccine Status Have you recieved a Covid-19 vaccination: Yes [employer]: [employer] - Vaccination Dates Date of 2cond Vaccination (if applicable): . - Review of Systems Constitutional: No Fever, No Chills Eyes: No Symptoms Ears, Nose, & Throat: No Symptoms Respiratory: No Cough, No Dyspnea Cardiac: No Chest Pain, No Edema, No Syncope Abdominal/Gastrointestinal: No Abdominal Pain, No Nausea, No Vomiting, No Diarrhea Genitourinary Symptoms: No Dysuria Musculoskeletal: No Back Pain, No Neck Pain Skin: No Symptoms, No Rash Neurological: No Dizziness, No Focal Weakness, No Sensory Changes Psychological: No Symptoms Endocrine: No Symptoms Hematologic/Lymphatic: No Symptoms Immunological/Allergic: No Symptoms All Other Systems: Reviewed and Negative - Past Medical History Pertinent Past Medical History: Yes Neurological History: No Pertinent History ENT History: Cataracts, Macular Degeneration Cardiac History: Arrhythmia, Coronary Artery Disease, High Cholesterol Respiratory History: Lung Cancer Endocrine Medical History: Hypothyroidism Musculoskeletal History: Arthritis, Degenerative Disk Disease, Osteoarthritis GI Medical History: Hernia, Pancreatitis, Other History: No Pertinent History Psycho-Social History: Anxiety, Depression, Panic Disorder 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, Other Other Medical History: bowel blockage, - Past Surgical History Past Surgical History: Yes Neuro Surgical History: No Pertinent History Cardiac: No Pertinent History, CABG, Cardiac Catheterization Respiratory: Lobectomy Gastrointestinal: Appendectomy, Cholecystectomy, Hernia Repair Genitourinary: No Pertinent History Musculoskeletal: Orthopedic Surgery Female Surgical History: Hysterectomy Other Surgical History: upper right lung, knee replacement X2, CABG done March 2019 at [facility] - Social History Smoking Status: Never smoker Exposure to second hand smoke: Yes Drug Use: none Patient Lives Alone: No - Physical Exam General Appearance: no apparent distress, alert Eye Exam: PERRL/EOMI, eyes nml inspection Ears, Nose, Throat Exam: normal ENT inspection, moist mucous membranes Neck Exam: normal inspection, non-tender, supple, full range of motion Respiratory Exam: normal breath sounds, lungs clear, No respiratory distress Cardiovascular Exam: regular rate/rhythm, normal heart sounds Gastrointestinal/Abdomen Exam: soft, No tenderness, No mass Back Exam: normal inspection, No CVA tenderness, No vertebral tenderness Extremity Exam: normal inspection, normal range of motion Neurologic Exam: alert, oriented x 3, cooperative, normal mood/affect, sensation nml, No motor deficits Skin Exam: normal color, warm, dry SpO2 Interpretation: normal SpO2: 98 O2 Delivery: Room Air - Course Nursing assessment & vital signs reviewed: Yes EKG Interpreted by Me: Right Bundle Branch Block, Other (apcs) - Progress Air Movement: good Progress Note: 11/15/21 07:[address] Díaz at change of shift for final interpretation , treatment , and disposition. Blood Culture(s) Obtained: No Antibiotics given: No Counseled pt/family regarding: lab results, diagnosis, need for follow-up, rad results - Departure Clinical Impression: Chest pain, Acute coronary syndrome Condition: Stable Referrals: JOSE COFFEY MD [Primary Care Provider] - Follow up/PCP as directed <TALAT DÍAZ - Last Filed: 11/15/21 08:57> - Nursing Vital Signs Nursing Vital Signs: Initial Vital Signs Temperature 98.5 F 11/15/21 06:32 Pulse Rate 62 11/15/21 06:32 Respiratory Rate 20 11/15/21 06:32 Blood Pressure 154/90 11/15/21 06:32 O2 Sat by Pulse Oximetry 98 11/15/21 06:32 Pain Scale Pain Intensity 0 - Radiology Exams Chest X-ray Interpretation: Interpreted by me (Hyperinflated lungs. Normal cardiac silhouette. CABG history osteopenia Bony thorax intact.) Ordered Tests: Active Orders 24 hr Category Date Time Status Electronics Instructor STAT Care 11/15/21 06:56 Active EKG-ER Only STAT Care 11/15/21 06:54 Active IV Insertion STAT Care 11/15/21 06:54 Active Pulse Oximetry (ED) STAT Care 11/15/21 06:54 Active CHEST 1 VIEW (PORTABLE) Stat Exams 11/15/21 06:55 Taken CBC W DIFF Stat Lab 11/15/21 06:20 Completed CMP Stat Lab 11/15/21 06:20 Completed D-DIMER QUANTITATIVE Stat Lab 11/15/21 06:20 Completed LIPASE Stat Lab 11/15/21 06:20 Completed NT PRO BNP Stat Lab 11/15/21 06:20 Completed TROPONIN Q3H Lab 11/15/21 06:20 Completed TROPONIN Q3H Lab 11/15/21 10:00 Ordered TROPONIN Q3H Lab 11/15/21 13:00 Ordered TROPONIN Q3H Lab 11/15/21 16:00 Ordered TROPONIN Q3H Lab 11/15/21 19:00 Ordered Transfer Order Routine Transfer 11/15/21 Ordered Medication Summary Generic Name Dose Route Start Last Admin Trade Name Freq PRN Reason Stop Dose Admin Sodium Chloride 1,000 mls @ 50 mls/hr 11/15/21 07:00 11/15/21 07:13 Sodium Chloride 0.9% 1000 Ml IV 12/15/21 06:59 50 mls/hr .Q20H LOKESH Administration Lab/Rad Data: Laboratory Result Diagrams 11/15/21 06:20 11/15/21 06:20 Laboratory Results 11/15/21 11/15/21 11/15/21 Range/Units 07:27 06:20 06:20 WBC (4.0-10.5) K/mm3 RBC (4.1-5.4) M/mm3 Hgb (12.0-16.0) gm/dl Hct (35-47) % MCV (78-100) fl MCH (26-32) pg MCHC (32-36) g/dl RDW (11.5-14.0) % Plt Count (150-450) K/mm3 MPV (7.5-11.0) fl Gran % (36.0-66.0) % Eos # (Auto) (0-0.5) Absolute Lymphs (auto) (1.0-4.6) Absolute Monos (auto) (0.0-1.3) Lymphocytes % (24.0-44.0) % Monocytes % (0.0-12.0) % Eosinophils % (0.00-5.0) % Basophils % (0.0-0.4) % Absolute Granulocytes (1.4-6.9) Basophils # (0-0.4) D-Dimer 461 (215-500) ng/mL Sodium (137-145) mmol/L Potassium (3.5-5.1) mmol/L Chloride (98-107) mmol/L Carbon Dioxide (22-30) mmol/L Anion Gap (5-15) MEQ/L BUN (7-17) mg/dL Creatinine (0.52-1.04) mg/dL Estimated GFR ML/MIN Glucose (74-106) mg/dL Calcium (8.4-10.2) mg/dL Total Bilirubin (0.2-1.3) mg/dL AST (14-36) U/L ALT (0-35) U/L Alkaline Phosphatase (38-126) U/L Troponin I < 0.012 (0.000-0.034) ng/mL NT-Pro-B Natriuret Pep (0-1800) pg/mL Serum Total Protein (6.3-8.2) g/dL Albumin (3.5-5.0) g/dL Lipase (23-300) U/L Influenza Type A Ag NEGATIVE (NEGATIVE) Influenza Type B Ag NEGATIVE (NEGATIVE) RSV (PCR) NEGATIVE (Negative) SARS-CoV-2 (PCR) NEGATIVE (NEGATIVE) 11/15/21 11/15/21 Range/Units 06:20 06:20 WBC 5.6 (4.0-10.5) K/mm3 RBC 4.05 L (4.1-5.4) M/mm3 Hgb 13.0 (12.0-16.0) gm/dl Hct 39.9 (35-47) % MCV 98.5 (78-100) fl MCH 32.1 H (26-32) pg MCHC 32.6 (32-36) g/dl RDW 13.9 (11.5-14.0) % Plt Count 187 (150-450) K/mm3 MPV 10.0 (7.5-11.0) fl Gran % 55.9 (36.0-66.0) % Eos # (Auto) 0.15 (0-0.5) Absolute Lymphs (auto) 1.76 (1.0-4.6) Absolute Monos (auto) 0.53 (0.0-1.3) Lymphocytes % 31.7 (24.0-44.0) % Monocytes % 9.5 (0.0-12.0) % Eosinophils % 2.7 (0.00-5.0) % Basophils % 0.2 (0.0-0.4) % Absolute Granulocytes 3.11 (1.4-6.9) Basophils # 0.01 (0-0.4) D-Dimer (215-500) ng/mL Sodium 140 (137-145) mmol/L Potassium 3.8 (3.5-5.1) mmol/L Chloride 102 (98-107) mmol/L Carbon Dioxide 29 (22-30) mmol/L Anion Gap 12.5 (5-15) MEQ/L BUN 20 H (7-17) mg/dL Creatinine 0.91 (0.52-1.04) mg/dL Estimated GFR > 60.0 ML/MIN Glucose 90 (74-106) mg/dL Calcium 9.3 (8.4-10.2) mg/dL Total Bilirubin 0.70 (0.2-1.3) mg/dL AST 27 (14-36) U/L ALT 21 (0-35) U/L Alkaline Phosphatase 89 (38-126) U/L Troponin I (0.000-0.034) ng/mL NT-Pro-B Natriuret Pep 271 (0-1800) pg/mL Serum Total Protein 6.9 (6.3-8.2) g/dL Albumin 4.0 (3.5-5.0) g/dL Lipase 109 (23-300) U/L Influenza Type A Ag (NEGATIVE) Influenza Type B Ag (NEGATIVE) RSV (PCR) (Negative) SARS-CoV-2 (PCR) (NEGATIVE) - Progress Progress Note: Patient endorsed to Dr. Díaz at approximately [address] Díaz advised to follow- up on pending labs and imaging studies. Laboratory work-up essentially nonrem arkable. Initial troponin negative. Chest x-ray negative for acute pathology. In light of patient's cardiac history and nature of chest pain we will admit for cardiac rule out. Patient will be admitted for observation. Case discussed with Dr. Coffey who accepts admission to observation. Plan of care discussed with patient. She agrees to admission at [facility] for further evaluation and treatment. Covid test negative Portions of this note were created with voice recognition technology. There may be grammatical, spelling, punctuation or sound alike errors 11/15/21 08:55 - Departure Departure Disposition: Observation Critical Care Time: No
[2021-11-15 07:33] LABS: ALKALINE PHOSPHATASE 89 U/L (38-126); ANION GAP 12.5 MEQ/L (5-15); BLOOD UREA NITROGEN 20 mg/dL (7-17); CHLORIDE 102 mmol/L (98-107); Calcium 9.3 mg/dL (8.4-10.2); Carbon Dioxide 29 mmol/L (22-30); Creatinine 1 0.91 mg/dL (0.52-1.04); EST GLOMERULAR FILTRATION RATE > 60.0 ML/MIN; Glucose 90 mg/dL (74-106); LIPASE 109 U/L (23-300); NT PRO BNP 271 pg/mL (0-1800); Potassium 3.8 mmol/L (3.5-5.1); SGOT/AST 27 U/L (14-36); SGPT/ALT 21 U/L (0-35); SODIUM 140 mmol/L (137-145); Total Protein 6.9 g/dL (6.3-8.2)
[2021-11-15 08:13] LABS: INFLUENZA A NEGATIVE (NEGATIVE); INFLUENZA B NEGATIVE (NEGATIVE); RESPIRATORY SYNCTIAL VIRUS NEGATIVE (Negative); SARS-CoV-2 Xpert Express NEGATIVE (NEGATIVE)
[2021-11-15] MEDS ORDERED: MILK OF MAGNESIA 30 ML PO PRN (09:03)
[2021-11-15] MEDS ORDERED: MAALOX ES 30 ML UNIT DOSE PO PRN (09:03)
[2021-11-15] MEDS ORDERED: Senokot-S Tablet PO PRN (09:03)
--- NOTE | 2021-11-15 09:29 | XRAY ---
Indication: Chest pain. Comparison: May 20, 2020. Portable chest again hyperinflated with stable right lung postsurgical changes and scattered tiny calcified granulomas. Heart not enlarged again with CABG. Bony thorax intact again with osteopenia, degenerative changes, and old right rib fractures. Impression: Continued nonacute hyperinflated chest with chronic features.
--- NOTE | 2021-11-15 12:12 | PCM.HP ---
History of Present Illness - Chief Complaint Chief Complaint: c/o chest pain for 6-8 hours History of Present Illness: is a 81 year old female. Patient came to the emergency room with complaining of chest pain for last 6-8 hours. Patient has a significant past medical history of coronary artery disease hypertension osteoarthritis and uterine cancer. Patient denies any shortness of breath nausea vomiting diarrhea or constipation. Patient also denies any blood in the stool or urine. - Review of Systems Constitutional: No Fever, No Chills Eyes: No Symptoms Ears, Nose, & Throat: No Symptoms Respiratory: No Cough, No Short Of Breath Cardiac: Chest Pain, No Edema, No Syncope Abdominal/Gastrointestinal: No Abdominal Pain, No Nausea, No Vomiting, No Diarrhea Genitourinary Symptoms: No Dysuria Musculoskeletal: No Back Pain, No Neck Pain Skin: No Rash Neurological: No Dizziness, No Focal Weakness, No Sensory Changes Psychological: No Symptoms Endocrine: No Symptoms Hematologic/Lymphatic: No Symptoms Immunological/Allergic: No Symptoms Medications & Allergies Home Medications: Home Medication List Valsartan [Diovan] 160 mg PO HS 07/19/14 [History Confirmed 11/15/21] Aspirin 81 gm Chew [Baby Aspirin 81 mg Chew] 81 mg PO DAILY 03/22/15 [History Confirmed 11/15/21] Metoprolol Succinate 50 mg [Toprol Xl 50 MG] 25 mg PO HS 03/03/19 [History Confirmed 11/15/21] Atorvastatin Calcium [Lipitor 20MG Tablet] 40 mg PO DAILY 10/14/19 [History Confirmed 11/15/21] Isosorbide Mononitrate [Isosorbide Mononitrate ER] 30 mg PO DAILY 10/14/19 [History Confirmed 11/15/21] Meclizine HCl 12.5 mg PO QID 10/14/19 [History Confirmed 11/15/21] Oxybutynin Chloride [Oxybutynin Chloride ER] 5 mg PO HS 12/05/19 [History Confirmed 11/15/21] Tramadol HCl 50 mg [Ultram 50 mg] 50 mg PO QID PRN PRN 11/15/21 [History Confirmed 11/15/21] hydroCHLOROthiazide [Hydrochlorothiazide] 12.5 mg PO DAILY 11/15/21 [History Confirmed 11/15/21] Allergies/Adverse Reactions: Allergies Allergy/AdvReac Type Severity Reaction Status Date / Time cefaclor [From Ceclor] Allergy Verified 11/15/21 06:57 Penicillins Allergy Verified 11/15/21 06:57 acetaminophen [From Vicodin] AdvReac Verified 11/15/21 06:57 celecoxib [From Celebrex] AdvReac Verified 11/15/21 06:57 codeine AdvReac Verified 11/15/21 06:57 hydrocodone [From Vicodin] AdvReac Verified 11/15/21 06:57 morphine AdvReac Verified 11/15/21 06:57 propoxyphene [From Darvon] AdvReac Verified 11/15/21 06:57 - Past Medical History Past Medical History: Yes Neurological History: No Pertinent History ENT History: Cataracts, Macular Degeneration Cardiac History: Arrhythmia, Coronary Artery Disease, High Cholesterol Respiratory History: Lung Cancer Endocrine Medical History: Hypothyroidism Musculoskelatal History: Arthritis, Degenerative Disk Disease, Osteoarthritis GI Medical History: Hernia, Pancreatitis, Other History: No Pertinent History Pyscho-Social History: Anxiety, Depression, Panic Disorder Reproductive Disorders: Vaginal Cancer, Other Comment: bowel blockage, patient denies much of her documented medical history, states she is "easily confused" - Female History Are you now?: No - Past Surgical History Past Surgical History: Yes Neuro Surgical History: No Pertinent History Cardiac History: No Pertinent History, CABG, Cardiac Catheterization Respiratory Surgery: Lobectomy GI Surgical History: Appendectomy, Cholecystectomy, Hernia Repair Genitourinary Surgical Hx: No Pertinent History Musculskeletal Surgical Hx: Orthopedic Surgery Female Surgical History: Hysterectomy Other Surgical History: upper right lung, knee replacement X2, CABG done March 2019 at [place] - Social History Smoking Status: Never smoker Exposure to second hand smoke: Yes Alcohol: None Drug Use: none - Physical Exam Vital Signs: Vital Signs - 24 hr Temp Pulse Pulse Resp BP Pulse Ox 11/15/21 09:39 98.0 F 64 18 148/72 97 11/15/21 08:00 68 12 133/61 95 11/15/21 07:18 61 18 139/65 100 11/15/21 07:06 98 11/15/21 06:54 98 11/15/21 06:43 62 11/15/21 06:32 98.5 F 62 20 154/90 98 General Appearance: no apparent distress, alert Neurologic Exam: alert, oriented x 3, cooperative, normal mood/affect, nml cerebellar function, nml station & gait, sensation nml, No motor deficits Eye Exam: PERRL/EOMI, eyes nml inspection Ears, Nose, Throat Exam: normal ENT inspection, TMs normal, pharynx normal, moist mucous membranes Neck Exam: normal inspection, non-tender, supple, full range of motion Respiratory Exam: normal breath sounds, lungs clear, No respiratory distress Cardiovascular Exam: regular rate/rhythm, normal heart sounds, normal peripheral pulses Gastrointestinal/Abdomen Exam: soft, normal bowel sounds, No tenderness, No mass Back Exam: normal inspection, normal range of motion, No CVA tenderness, No vertebral tenderness Extremity Exam: normal inspection, normal range of motion, pelvis stable Skin Exam: normal color, warm, dry, No rash Lymphatic Exam: No adenopathy Results - Labs Lab/Micro Results: Lab Results-Last 24 Hours 11/15/21 11/15/21 11/15/21 Range/Units 06:20 06:20 06:20 WBC 5.6 (4.0-10.5) K/mm3 RBC 4.05 L (4.1-5.4) M/mm3 Hgb 13.0 (12.0-16.0) gm/dl Hct 39.9 (35-47) % MCV 98.5 (78-100) fl MCH 32.1 H (26-32) pg MCHC 32.6 (32-36) g/dl RDW 13.9 (11.5-14.0) % Plt Count 187 (150-450) K/mm3 MPV 10.0 (7.5-11.0) fl Gran % 55.9 (36.0-66.0) % Eos # (Auto) 0.15 (0-0.5) Absolute Lymphs (auto) 1.76 (1.0-4.6) Absolute Monos (auto) 0.53 (0.0-1.3) Lymphocytes % 31.7 (24.0-44.0) % Monocytes % 9.5 (0.0-12.0) % Eosinophils % 2.7 (0.00-5.0) % Basophils % 0.2 (0.0-0.4) % Absolute Granulocytes 3.11 (1.4-6.9) Basophils # 0.01 (0-0.4) D-Dimer 461 (215-500) ng/mL Sodium 140 (137-145) mmol/L Potassium 3.8 (3.5-5.1) mmol/L Chloride 102 (98-107) mmol/L Carbon Dioxide 29 (22-30) mmol/L Anion Gap 12.5 (5-15) MEQ/L BUN 20 H (7-17) mg/dL Creatinine 0.91 (0.52-1.04) mg/dL Estimated GFR > 60.0 ML/MIN Glucose 90 (74-106) mg/dL Calcium 9.3 (8.4-10.2) mg/dL Total Bilirubin 0.70 (0.2-1.3) mg/dL AST 27 (14-36) U/L ALT 21 (0-35) U/L Alkaline Phosphatase 89 (38-126) U/L Troponin I (0.000-0.034) ng/mL NT-Pro-B Natriuret Pep 271 (0-1800) pg/mL Serum Total Protein 6.9 (6.3-8.2) g/dL Albumin 4.0 (3.5-5.0) g/dL Lipase 109 (23-300) U/L Influenza Type A Ag (NEGATIVE) Influenza Type B Ag (NEGATIVE) RSV (PCR) (Negative) SARS-CoV-2 (PCR) (NEGATIVE) 11/15/21 11/15/21 11/15/21 Range/Units 06:20 07:27 10:23 WBC (4.0-10.5) K/mm3 RBC (4.1-5.4) M/mm3 Hgb (12.0-16.0) gm/dl Hct (35-47) % MCV (78-100) fl MCH (26-32) pg MCHC (32-36) g/dl RDW (11.5-14.0) % Plt Count (150-450) K/mm3 MPV (7.5-11.0) fl Gran % (36.0-66.0) % Eos # (Auto) (0-0.5) Absolute Lymphs (auto) (1.0-4.6) Absolute Monos (auto) (0.0-1.3) Lymphocytes % (24.0-44.0) % Monocytes % (0.0-12.0) % Eosinophils % (0.00-5.0) % Basophils % (0.0-0.4) % Absolute Granulocytes (1.4-6.9) Basophils # (0-0.4) D-Dimer (215-500) ng/mL Sodium (137-145) mmol/L Potassium (3.5-5.1) mmol/L Chloride (98-107) mmol/L Carbon Dioxide (22-30) mmol/L Anion Gap (5-15) MEQ/L BUN (7-17) mg/dL Creatinine (0.52-1.04) mg/dL Estimated GFR ML/MIN Glucose (74-106) mg/dL Calcium (8.4-10.2) mg/dL Total Bilirubin (0.2-1.3) mg/dL AST (14-36) U/L ALT (0-35) U/L Alkaline Phosphatase (38-126) U/L Troponin I < 0.012 < 0.012 (0.000-0.034) ng/mL NT-Pro-B Natriuret Pep (0-1800) pg/mL Serum Total Protein (6.3-8.2) g/dL Albumin (3.5-5.0) g/dL Lipase (23-300) U/L Influenza Type A Ag NEGATIVE (NEGATIVE) Influenza Type B Ag NEGATIVE (NEGATIVE) RSV (PCR) NEGATIVE (Negative) SARS-CoV-2 (PCR) NEGATIVE (NEGATIVE) - Radiology Impressions Radiology Exams & Impressions: Radiology Procedures Category Date Time Status CHEST 1 VIEW (PORTABLE) Stat Exams 11/15/21 06:55 Completed - Other Procedures and Tests Respiratory Therapy 11/15/21 15:00 EKG ONCE 11/16/21 05:00 EKG ONCE 11/17/21 05:00 EKG ONCE 11/18/21 05:00 EKG ONCE Assessment/Plan (1) Chest pain, rule out acute myocardial infarction Current Visit: Yes Status: Resolved Assessment & Plan: Chief Complaint Diagnosis ACS, CHEST PAIN, HX CABG Allergies Allergy/AdvReac Type Severity Reaction Status Date / Time cefaclor [From Ceclor] Allergy Verified 11/15/21 06:57 Penicillins Allergy Verified 11/15/21 06:57 acetaminophen [From Vicodin] AdvReac Verified 11/15/21 06:57 celecoxib [From Celebrex] AdvReac Verified 11/15/21 06:57 codeine AdvReac Verified 11/15/21 06:57 hydrocodone [From Vicodin] AdvReac Verified 11/15/21 06:57 morphine AdvReac Verified 11/15/21 06:57 propoxyphene [From Darvon] AdvReac Verified 11/15/21 06:57 Vital Signs (Last 24 hours) Temp Pulse Pulse Resp BP Pulse Ox 11/15/21 09:39 98.0 F 64 18 148/72 97 11/15/21 08:00 68 12 133/61 95 11/15/21 07:18 61 18 139/65 100 11/15/21 07:06 98 11/15/21 06:54 98 11/15/21 06:43 62 11/15/21 06:32 98.5 F 62 20 154/90 98 Home Medications Medication Instructions Recorded Confirmed Last Taken Type Tramadol HCl 50 mg [Ultram 50 50 mg PO QID PRN PRN 11/15/21 11/15/21 11/09/21 History mg] hydroCHLOROthiazide 12.5 mg PO DAILY 11/15/21 11/15/21 Unknown History [Hydrochlorothiazide] Current Medications Generic Name Dose Route Start Last Admin Trade Name Freq PRN Reason Stop Dose Admin Al Hydrox/Mg Hydrox/Simethicone 30 ml 11/15/21 09:03 Mag Hydrox/Al Hydrox/Simeth 30 Ml Udcup PO 12/15/21 09:02 Q4H PRN PRN INDIGESTION Magnesium Hydroxide 30 - 60 ml 11/15/21 09:03 Magnesium Hydroxide 30 Ml Udcup PO 12/15/21 09:02 QDP PRN CONSTIPATION Senna/Docusate Sodium 2 udtab 11/15/21 09:03 Senna/Docusate Sodium 1 Udtab Tablet PO 12/15/21 09:02 BID PRN PRN CONSTIPATION Discontinued Medications Generic Name Dose Route Start Last Admin Trade Name Freq PRN Reason Stop Dose Admin Sodium Chloride 1,000 mls @ 50 mls/hr 11/15/21 07:00 11/15/21 07:13 Sodium Chloride 0.9% 1000 Ml IV 12/15/21 06:59 50 mls/hr .Q20H LOKESH Administration Intake & Output (Last 24 hours) 11/13/21 11/14/21 11/15/21 11/16/21 11:59 11:59 11:59 11:59 Weight 62.6 kg Laboratory Results (Last 24 hours) 11/15/21 11/15/21 11/15/21 10:23 07:27 06:20 WBC RBC Hgb Hct MCV MCH MCHC RDW Plt Count MPV Gran % Eos # (Auto) Absolute Lymphs (auto) Absolute Monos (auto) Lymphocytes % Monocytes % Eosinophils % Basophils % Absolute Granulocytes Basophils # D-Dimer Sodium Potassium Chloride Carbon Dioxide Anion Gap BUN Creatinine Estimated GFR Glucose Calcium Total Bilirubin AST ALT Alkaline Phosphatase Troponin I < 0.012 < 0.012 NT-Pro-B Natriuret Pep Serum Total Protein Albumin Lipase Influenza Type A Ag NEGATIVE Influenza Type B Ag NEGATIVE RSV (PCR) NEGATIVE SARS-CoV-2 (PCR) NEGATIVE 11/15/21 11/15/21 11/15/21 06:20 06:20 06:20 WBC 5.6 RBC 4.05 L Hgb 13.0 Hct 39.9 MCV 98.5 MCH 32.1 H MCHC 32.6 RDW 13.9 Plt Count 187 MPV 10.0 Gran % 55.9 Eos # (Auto) 0.15 Absolute Lymphs (auto) 1.76 Absolute Monos (auto) 0.53 Lymphocytes % 31.7 Monocytes % 9.5 Eosinophils % 2.7 Basophils % 0.2 Absolute Granulocytes 3.11 Basophils # 0.01 D-Dimer 461 Sodium 140 Potassium 3.8 Chloride 102 Carbon Dioxide 29 Anion Gap 12.5 BUN 20 H Creatinine 0.91 Estimated GFR > 60.0 Glucose 90 Calcium 9.3 Total Bilirubin 0.70 AST 27 ALT 21 Alkaline Phosphatase 89 Troponin I NT-Pro-B Natriuret Pep 271 Serum Total Protein 6.9 Albumin 4.0 Lipase 109 Influenza Type A Ag Influenza Type B Ag RSV (PCR) SARS-CoV-2 (PCR) Orders (Last 24 hours) Category Date Time Status Bedrest with BRP/BSC ROUTINE Activity 11/15/21 09:03 Active Digital Research Analyst STAT Care 11/15/21 06:56 Completed Code Status Order ROUTINE Care 11/15/21 09:03 Active EKG-ER Only STAT Care 11/15/21 06:54 Completed IV Care Q6H Care 11/15/21 09:03 Active IV Insertion STAT Care 11/15/21 06:54 Completed Implement Chest Pain Pathway ROUTINE Care 11/15/21 09:[address] in Observation ROUTINE Care 11/15/21 09:03 Active Pulse Oximetry (ED) STAT Care 11/15/21 06:54 Completed Anish Plata ROUTINE Care 11/15/21 09:03 Active Telemetry q6h Care 11/15/21 09:03 Active Weight,Daily 0600 Care 11/15/21 09:03 Active House Regular Diet Diet 11/15/21 Breakfast Active CHEST 1 VIEW (PORTABLE) Stat Exams 11/15/21 06:55 Completed CBC W DIFF Stat Lab 11/15/21 06:20 Completed CMP Stat Lab 11/15/21 06:20 Completed D-DIMER QUANTITATIVE Stat Lab 11/15/21 06:20 Completed LIPASE Stat Lab 11/15/21 06:20 Completed LIPID PROFILE AM.LAB Lab 11/16/21 04:00 Ordered NT PRO BNP Stat Lab 11/15/21 06:20 Completed TROPONIN Q3H Lab 11/15/21 06:20 Completed TROPONIN Q3H Lab 11/15/21 10:23 Completed TROPONIN Q3H Lab 11/15/21 13:00 Ordered TROPONIN Q3H Lab 11/15/21 16:00 Ordered TROPONIN Q3H Lab 11/15/21 19:00 Ordered Mag Hydrox/Al Hydrox/Simeth [Maalox Es 30 ml Unit Med 11/15/21 09:03 Active Dose] 30 ml PO Q4H PRN PRN Magnesium Hydroxide 30 ml [Milk of Magnesia 30 ml Med 11/15/21 09:03 Active ] 30 - 60 ml PO QDP PRN NaCl 0.9% 1000 ml [Sodium Chloride 0.9% 1000 ML] 1,000 Med 11/15/21 07:00 Discontinued ml IV 50 mls/hr Senna/Docusate Sodium Tab [Senokot-S Tablet] Med 11/15/21 09:03 Active 2 udtab PO BID PRN PRN EKG ONCE RT 11/15/21 15:00 Active EKG ONCE RT 11/16/21 05:00 Active EKG ONCE RT 11/17/21 05:00 Active EKG ONCE RT 11/18/21 05:00 Active Transfer Order Routine Transfer 11/15/21 Completed Code(s): R07.9 - CHEST PAIN, UNSPECIFIED (2) Acute coronary syndrome Current Visit: Yes Status: Acute Code(s): I24.9 - ACUTE ISCHEMIC HEART DISEASE, UNSPECIFIED (3) Chest pain Current Visit: Yes Status: Acute Qualifiers: Chest pain type: precordial pain Qualified Code(s): R07.2 - Precordial pain Code(s): R07.9 - CHEST PAIN, UNSPECIFIED (4) HTN (hypertension) Current Visit: Yes Status: Chronic Qualifiers: Hypertension type: primary hypertension Qualified Code(s): I10 - Essential (primary) hypertension Code(s): I10 - ESSENTIAL (PRIMARY) HYPERTENSION
[2021-11-15] MEDS ORDERED: ULTRAM 50 MG PO PRN (16:04)
[2021-11-15] MEDS ORDERED: NON-FORMULARY ITEM (Meclizine Hcl [Meclizine Hcl] 12.5 MG Tablet) PO SCH (17:00)
[2021-11-15] MEDS: ANTIVERT 25 MG PO SCH ×2 (18:13→22:08)
[2021-11-15] MEDS ORDERED: Toprol Xl 50 MG PO SCH (22:00)
[2021-11-15] MEDS ORDERED: DIOVAN 80 MG PO SCH (22:00)
[2021-11-15] MEDS ORDERED: Ditropan XL 5 MG PO SCH (22:00)
[2021-11-15] MEDS ORDERED: VALSARTAN 160 MG PO SCH (22:00)
[2021-11-15] MEDS ORDERED: Toprol-Xl 25MG Tablets PO SCH (22:00)
[2021-11-16 06:54] LABS: Risk Ratio 2.3
[2021-11-16] MEDS: ANTIVERT 25 MG PO SCH (08:58)
[2021-11-16] MEDS ORDERED: ECOTRIN 81 MG PO SCH (10:00)
[2021-11-16] MEDS ORDERED: NON-FORMULARY ITEM (Atorvastatin Calcium 20 MG Tab) PO SCH (10:00)
[2021-11-16] MEDS ORDERED: hydroDIURIL 25 MG PO SCH (10:00)
[2021-11-16] MEDS ORDERED: NON-FORMULARY ITEM (Hydrochlorothiazide [Hydrochlorothiazide] 12.5 MG Tablet) PO SCH (10:00)
[2021-11-16] MEDS ORDERED: Imdur 30 MG PO SCH (10:00)
[2021-11-16] MEDS ORDERED: ZOCOR 20MG PO SCH (10:00)
[2021-11-16] MEDS ORDERED: BABY ASPIRIN 81 MG CHEW PO SCH (10:00)
[2021-11-16 10:21] VITALS: BP 179/77; PULSE 75; O2SAT 97
--- NOTE | 2021-11-16 18:33 | PCM.DS ---
Discharge Summary Date of Admission: 11/15/21 08:57 Admitting Physician: JOSE COFFEY Primary Care Provider: JOSE COFFEY Allergies Allergies cefaclor [From Ceclor] Allergy (Verified 11/15/21 06:57) Penicillins Allergy (Verified 11/15/21 06:57) acetaminophen [From Vicodin] Adverse Reaction (Verified 11/15/21 06:57) celecoxib [From Celebrex] Adverse Reaction (Verified 11/15/21 06:57) codeine Adverse Reaction (Verified 11/15/21 06:57) hydrocodone [From Vicodin] Adverse Reaction (Verified 11/15/21 06:57) morphine Adverse Reaction (Verified 11/15/21 06:57) propoxyphene [From Darvon] Adverse Reaction (Verified 11/15/21 06:57) Hospital Summary - Hospital Course Hospital Course: Chief Complaint Diagnosis c/o chest pain for 6-8 hours Allergies Allergy/AdvReac Type Severity Reaction Status Date / Time cefaclor [From Ceclor] Allergy Verified 11/15/21 06:57 Penicillins Allergy Verified 11/15/21 06:57 acetaminophen [From Vicodin] AdvReac Verified 11/15/21 06:57 celecoxib [From Celebrex] AdvReac Verified 11/15/21 06:57 codeine AdvReac Verified 11/15/21 06:57 hydrocodone [From Vicodin] AdvReac Verified 11/15/21 06:57 morphine AdvReac Verified 11/15/21 06:57 propoxyphene [From Darvon] AdvReac Verified 11/15/21 06:57 Vital Signs (Last 24 hours) Temp Pulse Resp BP Pulse Ox 11/16/21 09:00 98.1 F 75 19 179/77 97 11/16/21 05:00 98.2 F 72 16 182/77 96 11/16/21 00:00 97.8 F 68 16 138/61 96 11/15/21 20:00 98.3 F 67 12 148/67 97 Home Medications Medication Instructions Recorded Confirmed Last Taken Type Tramadol HCl 50 mg [Ultram 50 50 mg PO QID PRN PRN 11/15/21 11/15/21 11/09/21 History mg] hydroCHLOROthiazide 12.5 mg PO DAILY 11/15/21 11/15/21 Unknown History [Hydrochlorothiazide] Current Medications Discontinued Medications Generic Name Dose Route Start Last Admin Trade Name Freq PRN Reason Stop Dose Admin Al Hydrox/Mg Hydrox/Simethicone 30 ml 11/15/21 09:03 Mag Hydrox/Al Hydrox/Simeth 30 Ml Udcup PO 12/15/21 09:02 Q4H PRN PRN INDIGESTION Aspirin 81 mg 11/16/21 10:00 11/16/21 08:59 Aspirin 81 Mg Tablet.Ec PO 12/16/21 09:59 81 mg DAILY LOKESH Administration Hydrochlorothiazide 12.5 mg 11/16/21 10:00 11/16/21 08:58 Hydrochlorothiazide 25 Mg Tablet PO 12/16/21 09:59 12.5 mg DAILY LOKESH Administration Sodium Chloride 1,000 mls @ 50 mls/hr 11/15/21 07:00 11/15/21 07:13 Sodium Chloride 0.9% 1000 Ml IV 12/15/21 06:59 50 mls/hr .Q20H LOKESH Administration Isosorbide Mononitrate 30 mg 11/16/21 10:00 11/16/21 08:58 Isosorbide Mononitrate 30 Mg Tab PO 12/16/21 09:59 30 mg DAILY LOKESH Administration Magnesium Hydroxide 30 - 60 ml 11/15/21 09:03 Magnesium Hydroxide 30 Ml Udcup PO 12/15/21 09:02 QDP PRN CONSTIPATION Meclizine HCl 12.5 mg 11/15/21 17:00 11/16/21 08:58 Meclizine Hcl 25 Mg Tablet PO 12/15/21 16:59 12.5 mg QID LOKESH Administration Metoprolol Succinate 25 mg 11/15/21 22:00 11/15/21 22:08 Metoprolol Succinate 25 Mg Xl Tab PO 12/15/21 21:59 25 mg HS LOKESH Administration Oxybutynin Chloride 5 mg 11/15/21 22:00 11/15/21 22:07 Oxybutynin Chloride Xl 5 Mg Tab PO 12/15/21 21:59 5 mg HS LOKESH Administration Senna/Docusate Sodium 2 udtab 11/15/21 09:03 Senna/Docusate Sodium 1 Udtab Tablet PO 12/15/21 09:02 BID PRN PRN CONSTIPATION Simvastatin 40 mg 11/16/21 10:00 11/16/21 08:59 Simvastatin 20 Mg Tablet PO 12/16/21 09:59 40 mg DAILY LOKESH Administration Tramadol HCl 50 mg 11/15/21 16:04 Tramadol Hcl 50 Mg Tablet PO 12/15/21 16:03 QID PRN PRN PAIN Valsartan 160 mg 11/15/21 22:00 11/15/21 22:07 Valsartan 80 Mg Tablet PO 12/15/21 21:59 160 mg HS LOKESH Administration Intake & Output (Last 24 hours) 11/14/21 11/15/21 11/16/21 11/17/21 11:59 11:59 11:59 11:59 Intake Total 1350 Output Total 2200 Balance -850 Weight 62.6 kg 61 kg Laboratory Results (Last 24 hours) 11/16/21 11/15/21 05:05 19:25 Troponin I < 0.012 Triglycerides 61 Cholesterol 109 LDL Cholesterol 46 HDL Cholesterol 47 Heart Disease Risk Ratio 2.3 Orders (Last 24 hours) Category Date Time Status Discharge Routine Discharge 11/16/21 Ordered LIPID PROFILE AM.LAB Lab 11/16/21 05:05 Completed TROPONIN Q3H Lab 11/15/21 19:25 Completed Aspirin EC 81 mg [Ecotrin 81 mg] Med 11/16/21 10:00 Discontinued 81 mg PO DAILY Hydrochlorothiazide 25 mg [hydroDIURIL 25 MG] Med 11/16/21 10:00 Discontinued 12.5 mg PO DAILY Isosorbide Mononitrate 30 mg [Imdur 30 MG] Med 11/16/21 10:00 Discontinued 30 mg PO DAILY Metoprolol Succinate 25 mg Xl* [Toprol-Xl 25MG Tablets* Med 11/15/21 22:00 Discontinued ] 25 mg PO HS Oxybutynin Chloride Xl 5 mg [Ditropan XL 5 MG] Med 11/15/21 22:00 Discontinued 5 mg PO HS Simvastatin 20Mg [Zocor 20Mg] Med 11/16/21 10:00 Discontinued 40 mg PO DAILY Valsartan 80 mg [Diovan 80 mg] Med 11/15/21 22:00 Discontinued 160 mg PO HS EKG ONCE RT 11/16/21 05:00 Completed EKG ONCE RT 11/17/21 05:00 Completed EKG ONCE RT 11/18/21 05:00 Completed EKG STAT RT 11/15/21 22:05 Completed Patient Care Notes (Last 24 hours) 11/16/21 11:01 Nursing Note by Talia Sol Patient taken by wheelchair to 's personal vehicle to be transported to their home. Initialized on 11/16/21 11:01 - END OF NOTE 11/16/21 10:04 Case Management Note by Juliana Grossman S/W AND PATIENT- NOTIFIED THAT [facility] WAS SET UP, THEY BOTH DENY ANY OTHER NEW NEEDS FOR DC AT THIS TIME. PATIENT PLANS TO RETURN HOME WITH HER TO HER PRIOR LEVEL OF FUNCTIONING AT TIME OF DC Initialized on 11/16/21 10:04 - END OF NOTE 11/16/21 09:45 Case Management Note by Juliana Grossman [facility] ACCEPTED PATIENT Initialized on 11/16/21 09:45 - END OF NOTE - Vitals & Intake/Output Vital Signs: Vital Signs Temperature 98.1 F 11/16/21 09:00 Pulse Rate 75 11/16/21 09:00 Respiratory Rate 19 11/16/21 09:00 Blood Pressure 179/77 11/16/21 09:00 O2 Sat by Pulse Oximetry 97 11/16/21 09:00 Intake & Output: Intake & Output 11/14/21 11/15/21 11/16/21 11/17/21 11:59 11:59 11:59 11:59 Intake Total 1350 Output Total 2200 Balance -850 Weight 62.6 kg 61 kg - Lab Result Diagrams: 11/15/21 06:20 11/15/21 06:20 Lab Results-Last 24 Hrs: Lab Results-Last 24 Hours 11/15/21 11/16/21 Range/Units 19:25 05:05 Troponin I < 0.012 (0.000-0.034) ng/mL Triglycerides 61 (30-150) mg/dL Cholesterol 109 (50-200) mg/dL LDL Cholesterol 46 (30-100) mg/dL HDL Cholesterol 47 (40-60) mg/dL Heart Disease Risk Ratio 2.3 - Radiology Exams Ordered Rad Exams-Entire Visit: Radiology Procedures Category Date Time Status CHEST 1 VIEW (PORTABLE) Stat Exams 11/15/21 06:55 Completed - Procedures and Test Procedures and Tests throughout Hospitalization: Therapy Orders & Screens 11/15/21 15:00 EKG ONCE Comment: Diagnosis: ACS, CHEST PAIN, HX CABG 11/15/21 22:05 EKG STAT Comment: Diagnosis: c/o chest pain for 6-8 hours 11/16/21 05:00 EKG ONCE Comment: Diagnosis: ACS, CHEST PAIN, HX CABG 11/17/21 05:00 EKG ONCE Comment: Diagnosis: ACS, CHEST PAIN, HX CABG 11/18/21 05:00 EKG ONCE Comment: Diagnosis: ACS, CHEST PAIN, HX CABG Discharge Exam General Appearance: no apparent distress, alert Neurologic Exam: alert, oriented x 3, cooperative, normal mood/affect, nml cerebellar function, sensation nml, No motor deficits Eye Exam: PERRL, EOMI, eyes nml inspection Ears, Nose, Throat Exam: normal ENT inspection, pharynx normal, moist mucous membranes Neck Exam: normal inspection, non-tender, supple, full range of motion Respiratory Exam: normal breath sounds, lungs clear, No respiratory distress Cardiovascular Exam: regular rate/rhythm, normal heart sounds Gastrointestinal/Abdomen Exam: soft, No tenderness, No mass Pelvic Exam: deferred Rectal Exam: deferred Back Exam: normal inspection, normal range of motion, No CVA tenderness, No vertebral tenderness Extremity Exam: normal inspection, normal range of motion Skin Exam: normal color, warm, dry Final Diagnosis/Problem List - Final Discharge Diagnosis/Problem (1) Chest pain, rule out acute myocardial infarction Status: Resolved Code(s): R07.9 - CHEST PAIN, UNSPECIFIED (2) Acute coronary syndrome Status: Acute Code(s): I24.9 - ACUTE ISCHEMIC HEART DISEASE, UNSPECIFIED (3) Chest pain Status: Acute Code(s): R07.9 - CHEST PAIN, UNSPECIFIED (4) HTN (hypertension) Status: Chronic Code(s): I10 - ESSENTIAL (PRIMARY) HYPERTENSION - Discharge Discharge Date: 11/16/21 [facility]position: [facility] Condition: Stable Prescriptions: Continue Valsartan [Diovan] 160 mg PO HS Aspirin 81 gm Chew [Baby Aspirin 81 mg Chew] 81 mg PO DAILY Metoprolol Succinate 50 mg [Toprol Xl 50 MG] 25 mg PO HS Meclizine HCl 12.5 mg PO QID Isosorbide Mononitrate [Isosorbide Mononitrate ER] 30 mg PO DAILY Atorvastatin Calcium [Lipitor 20MG Tablet] 40 mg PO DAILY Oxybutynin Chloride [Oxybutynin Chloride ER] 5 mg PO HS hydroCHLOROthiazide [Hydrochlorothiazide] 12.5 mg PO DAILY Tramadol HCl 50 mg [Ultram 50 mg] 50 mg PO QID PRN PRN PRN Reason: Pain Instructions: Chest Pain, Acid Reflux and GERD in Adults (DC) Additional Instructions: YOU CAN CALL [facility] AT [phone] extension [phone] TO DISCUSS IF MEALS ON WHEELS IS AVAILABLE IN YOUR AREA [facility] HAS BEEN SET UP. THEY WILL BE IN CONTACT TO ARRANGE A VISIT. THEIR PHONE NUMBER IS [phone] Follow up with: JOSE COFFEY MD [Primary Care Provider] - 11/23/21 2:00 pm ([facility]) Forms: Discharge Instructions
== END 2021-11-16 10:33 | disposition home health service (06) ==
LOC: ED 06:32 → MED SURG 08:57
PROVIDERS: ADMIT General Practice; ATTEND General Practice
DX: R07.9 Chest pain, unspecified (principal); I24.9 Acute ischemic heart disease, unspecified; I10 Essential (primary) hypertension; R07.2 Precordial pain; E78.00 Pure hypercholesterolemia, unspecified; Z79.899 Other long term (current) drug therapy; Z85.42 Personal history of malignant neoplasm of other parts of uterus; Z20.828 Contact with and (suspected) exposure to other viral communicable diseases
CPT/HCPCS: 0241U; 36000; 36415; 71045; 80053; 80061; 83690; 83721; 83880; 84484; 85025; 85379; 93005; 93041; 94760; 99285; 93268; A9270-GY; G0378

== ENCOUNTER 2022-05-17 16:23 | Observation (INO) | payer MEDICARE ==
[2022-05-17 17:29] LABS: Hematocrit 36.2 % (35-47); Hemoglobin 12.1 g/dL (12.0-16.0); Mean Cell Volume 96.8 fL (78-100); Mean Corpuscular Hemoglobin 32.4 pg (26-32); Mean Corpuscular Hgb Concent. 33.4 g/dL (32-36); Mean Platelet Volume 9.3 fL (7.5-11.0); Platelet Count 173 x10^3/uL (150-450); Red Blood Count 3.74 x10^6/uL (4.1-5.4); Red Cell Distribution Width 13.7 % (11.5-14.0); White Blood Count 4.3 x10^3/uL (4.0-10.5)
[2022-05-17 17:32] LABS: INFLUENZA A NEGATIVE (NEGATIVE); INFLUENZA B NEGATIVE (NEGATIVE); RESPIRATORY SYNCTIAL VIRUS NEGATIVE (Negative); SARS-CoV-2 Xpert Express NEGATIVE (NEGATIVE)
[2022-05-17] MEDS: ENOXAPARIN SODIUM SQ SCH (17:55)
[2022-05-17] MEDS ORDERED: ROCEPHIN 1 Gm-D5w 50 ml Bag** 1 G/50 ML IVPB IV SCH (18:00)
[2022-05-17] MEDS ORDERED: Lasix 20 MG/2 ML ONE (18:13)
[2022-05-17] MEDS ORDERED: Lasix 20 MG/2 ML IV SCH (18:19)
[2022-05-17] MEDS ORDERED: Lasix 20 MG/2 ML IV ONE (18:20)
[2022-05-17 18:43] LABS: ALBUMIN 4.1 g/dL (3.5-5.0); ALKALINE PHOSPHATASE 72 U/L (38-126); BLOOD UREA NITROGEN 11 mg/dL (7-17); CHLORIDE 102 mmol/L (98-107); Calcium 9.4 mg/dL (8.4-10.2); Carbon Dioxide 29 mmol/L (22-30); Creatinine 1 0.82 mg/dL (0.52-1.04); EST GLOMERULAR FILTRATION RATE > 60.0 ML/MIN; Glucose 88 mg/dL (74-106); NT PRO BNP 710 pg/mL (0-1800); Potassium 3.4 mmol/L (3.5-5.1); SGOT/AST 31 U/L (14-36); SGPT/ALT 15 U/L (0-35); SODIUM 138 mmol/L (137-145); TROPONIN < 0.012 ng/mL (0.000-0.034)
[2022-05-17] MEDS ORDERED: Toprol Xl 50 MG PO SCH (22:00)
[2022-05-17] MEDS ORDERED: Ditropan 5 MG PO SCH (22:00)
[2022-05-17] MEDS ORDERED: Toprol-Xl 25MG Tablets ONE (22:17)
[2022-05-17] MEDS: DIOVAN 80 MG PO SCH (22:25)
[2022-05-17] MEDS: Merrem 1 GM in Sodium Chloride 100ML MINI-BAG PLUS 100 ML IV SCH (22:25)
[2022-05-17] MEDS: ULTRAM 50 MG PO PRN (22:45)
[2022-05-18] MEDS ORDERED: Sodium Chloride 100ML MINI-BAG PLUS 100 ML IV ONE (05:24)
[2022-05-18] MEDS ORDERED: Merrem IV ONE (05:24)
[2022-05-18] MEDS: Merrem 1 GM in Sodium Chloride 100ML MINI-BAG PLUS 100 ML IV SCH ×3 (05:42→21:15)
--- NOTE | 2022-05-18 09:31 | XRAY ---
Indication: Bilateral lower extremity cellulitis. Comparison: November 15, 2021 Portable AP/lateral chest remains hyperinflated and clear with stable right lung postsurgical changes and scattered tiny calcified granulomas. Heart not enlarged again with CABG. Bony thorax intact again with osteopenia, degenerative changes, and old right rib fractures. Impression: Continued nonacute hyperinflated chest with chronic features. Comment: Preliminary interpretation made by [facility]. No critical discrepancy.
[2022-05-18] MEDS ORDERED: NON-FORMULARY ITEM (Hydrochlorothiazide [Hydrochlorothiazide] 12.5 MG Tablet) PO SCH (10:00)
[2022-05-18] MEDS ORDERED: NON-FORMULARY ITEM (Meclizine Hcl [Meclizine Hcl] 12.5 MG Tablet) PO SCH (10:00)
[2022-05-18] MEDS ORDERED: NON-FORMULARY ITEM (Atorvastatin Calcium 20 MG Tab) PO SCH (10:00)
[2022-05-18] MEDS: ZOCOR 20MG PO SCH (10:26)
[2022-05-18] MEDS: ECOTRIN 81 MG PO SCH (10:26)
[2022-05-18] MEDS: hydroDIURIL 25 MG PO SCH (10:26)
[2022-05-18] MEDS: Imdur 30 MG PO SCH (10:26)
[2022-05-18] MEDS: ANTIVERT 25 MG PO SCH ×4 (10:27→21:08)
[2022-05-18] MEDS: ENOXAPARIN SODIUM SQ SCH (10:27)
[2022-05-18] MEDS: Lasix 20 MG/2 ML IV SCH (10:27)
--- NOTE | 2022-05-18 10:36 | XRAY ---
Indication: Bilateral lower extremity cellulitis. Two-dimensional sonogram and color Doppler imaging of the major venous vessels of the left and right leg performed. Comparison: None No thrombus seen in the examined deep venous vessels of the left and right leg including greater saphenous vein. Veins demonstrate normal compressibility. Venous waveforms are normal with and without augmentation. Impression: Left and right legs negative for DVT.
[2022-05-18] MEDS ORDERED: Lasix 20 MG/2 ML IV SCH (15:30)
[2022-05-18] MEDS ORDERED: Tums EX 750 MG PO PRN (15:43)
--- NOTE | 2022-05-18 16:34 | PCM.CONS ---
Podiatry HPI - Consult Date of Consultation Date: 05/18/22 Reason for Consult: cellulitis Consulting Provider: ALEXANDRO HINKLE DPM - [facility] History of Present Illness: Hina is a very pleasant 81-year-old female who is seen at bedside this afternoon for concerns of cellulitis to the bilateral lower extremity. Patient indicates that she has had a recent history of increased pain and swelling to the bilateral lower extremity that is not typical for her. Patient indicates she is unaware of any cardiac or pulmonary history of hers. She denies any constitutional symptoms of infection. She denies any other pedal complaints at this time Medications & Allergies Home Medications: Home Medication List Valsartan [Diovan] 160 mg PO HS 07/19/14 [History Confirmed 11/15/21] Aspirin 81 gm Chew [Baby Aspirin 81 mg Chew] 81 mg PO DAILY 03/22/15 [History Confirmed 11/15/21] Metoprolol Succinate 50 mg [Toprol Xl 50 MG] 25 mg PO HS 03/03/19 [History Confirmed 11/15/21] Atorvastatin Calcium [Lipitor 20MG Tablet] 40 mg PO DAILY 10/14/19 [History Confirmed 11/15/21] Isosorbide Mononitrate [Isosorbide Mononitrate ER] 30 mg PO DAILY 10/14/19 [History Confirmed 11/15/21] Meclizine HCl 12.5 mg PO QID 10/14/19 [History Confirmed 11/15/21] Oxybutynin Chloride [Oxybutynin Chloride ER] 5 mg PO HS 12/05/19 [History Confirmed 11/15/21] Tramadol HCl 50 mg [Ultram 50 mg] 50 mg PO QID PRN PRN 11/15/21 [History Confirmed 11/15/21] hydroCHLOROthiazide [Hydrochlorothiazide] 12.5 mg PO DAILY 11/15/21 [History Confirmed 11/15/21] Allergies/Adverse Reactions: Allergies Allergy/AdvReac Type Severity Reaction Status Date / Time cefaclor [From Ceclor] Allergy Verified 05/17/22 18:10 Penicillins Allergy Verified 05/17/22 18:10 acetaminophen [From Vicodin] AdvReac Verified 05/17/22 18:10 celecoxib [From Celebrex] AdvReac Verified 05/17/22 18:10 codeine AdvReac Verified 05/17/22 18:10 hydrocodone [From Vicodin] AdvReac Verified 05/17/22 18:10 morphine AdvReac Verified 05/17/22 18:10 propoxyphene [From Darvon] AdvReac Verified 05/17/22 18:10 - Past Medical History Past Medical History: Yes Neurological History: No Pertinent History ENT History: Cataracts, Macular Degeneration Cardiac History: Arrhythmia, Coronary Artery Disease, High Cholesterol Respiratory History: Lung Cancer Endocrine Medical History: Hypothyroidism Musculoskelatal History: Arthritis, Degenerative Disk Disease, Osteoarthritis GI Medical History: Hernia, Pancreatitis, Other History: No Pertinent History Pyscho-Social History: Anxiety, Depression, Panic Disorder Reproductive Disorders: Vaginal Cancer, Other Comment: bowel blockage, patient denies much of her documented medical history, states she is "easily confused" - Female History Are you now?: No - Past Surgical History Past Surgical History: Yes Neuro Surgical History: No Pertinent History Cardiac History: No Pertinent History, CABG, Cardiac Catheterization Respiratory Surgery: Lobectomy GI Surgical History: Appendectomy, Cholecystectomy, Hernia Repair Genitourinary Surgical Hx: No Pertinent History Musculskeletal Surgical Hx: Orthopedic Surgery Female Surgical History: Hysterectomy Other Surgical History: upper right lung, knee replacement X2, CABG done March 2019 at [place] - Social History Smoking Status: Never smoker Exposure to second hand smoke: Yes Alcohol: None Drug Use: none Physical Exam - General General Appearance: no apparent distress - Neuro Neurologic: Epicritic and protopathic - Vascular Peripheral Pulses: Posterior tibialis: 2+, Dorsalis-Pedis: 2+ Capillary Refill Time: < 3 seconds Hair Growth: Symmetrical and Bilateral Varicosities: Positive Edema: Pitting Edema Degree: 3+ Skin: Supple, not atrophic Skin Temperature: Warm to touch - Muscular Muscle Strength: 5/5 on all 4 quadrants - Narrative Narrative Physical Exam: Podiatry Physical Exam Results - Labs Lab/Micro Results: Lab Results-Last 24 Hours 05/17/22 05/17/22 05/17/22 Range/Units 16:50 17:20 17:20 WBC 4.3 (4.0-10.5) x10^3/uL RBC 3.74 L (4.1-5.4) x10^6/uL Hgb 12.1 (12.0-16.0) g/dL Hct 36.2 (35-47) % MCV 96.8 (78-100) fL MCH 32.4 H (26-32) pg MCHC 33.4 (32-36) g/dL RDW 13.7 (11.5-14.0) % Plt Count 173 (150-450) x10^3/uL MPV 9.3 (7.5-11.0) fL Sodium 138 (137-145) mmol/L Potassium 3.4 L (3.5-5.1) mmol/L Chloride 102 (98-107) mmol/L Carbon Dioxide 29 (22-30) mmol/L Anion Gap 10.0 (5-15) MEQ/L BUN 11 (7-17) mg/dL Creatinine 0.82 (0.52-1.04) mg/dL Estimated GFR > 60.0 ML/MIN Glucose 88 (74-106) mg/dL Calcium 9.4 (8.4-10.2) mg/dL Total Bilirubin 1.10 (0.2-1.3) mg/dL AST 31 (14-36) U/L ALT 15 (0-35) U/L Alkaline Phosphatase 72 (38-126) U/L Troponin I < 0.012 (0.000-0.034) ng/mL NT-Pro-B Natriuret Pep 710 (0-1800) pg/mL Serum Total Protein 7.0 (6.3-8.2) g/dL Albumin 4.1 (3.5-5.0) g/dL TSH 3rd Generation 2.300 (0.47-4.68) mIU/L Influenza Type A Ag NEGATIVE (NEGATIVE) Influenza Type B Ag NEGATIVE (NEGATIVE) RSV (PCR) NEGATIVE (Negative) SARS-CoV-2 (PCR) NEGATIVE (NEGATIVE) - Radiology Impressions Radiology Exams & Impressions: Radiology Procedures Category Date Time Status CHEST 2 VIEWS (PA AND LAT) Routine Exams 05/18/22 00:05 Completed VENOUS BILATERAL EXTREMITY [US] Routine Exams 05/18/22 09:52 Completed Assessment/Plan (1) Venous insufficiency of both lower extremities Current Visit: Yes Status: Acute Assessment & Plan: Initial patient examination evaluation. Venous Dopplers obtained demonstrating negative for DVT to the bilateral lower extremity. Patient does have significant pitting edema to the bilateral lower extremity which is new for her. In combination with medical management of a diuretic patient would benefit with compression therapy. Bilateral Unna boots were applied to the bilateral lower extremity. Patient does have pulses however they are thready to the dorsalis pedis. Unable to assess at the posterior tibial due to significant edema and pain associated with palpation. Will reassess in 2 days time. Patient's symptomatology does not appear to be significantly consistent with cellulitis as it is bilateral and recent history of venous insufficiency would indicate fluid overload due to metabolic, cardiac or pulmonary issues. Will follow closely if plan for discharge follow-up within 1 week's time of discharge to my clinic. Discharge instructions for leave dressings clean dry and intact until reassessment in clinic 1 week from DC date Code(s): I87.2 - VENOUS INSUFFICIENCY (CHRONIC) (PERIPHERAL) (2) Localized edema due to fluid overload Current Visit: Yes Status: Acute Code(s): E87.70 - FLUID OVERLOAD, UNSPECIFIED
--- NOTE | 2022-05-18 18:16 | PCM.HP ---
History of Present Illness - Chief Complaint Chief Complaint: swelling of both lower extrimities for 1 week History of Present Illness: is a 81 year old female came to office c/o redness and swelling of both lower extrimities for 1 week duration. No trauma, no fever no chills. - Review of Systems Constitutional: No Fever, No Chills Eyes: No Symptoms Ears, Nose, & Throat: No Symptoms Respiratory: No Cough, No Short Of Breath Cardiac: No Chest Pain, No Edema, No Syncope Abdominal/Gastrointestinal: No Abdominal Pain, No Nausea, No Vomiting, No Diarrhea Genitourinary Symptoms: No Dysuria Musculoskeletal: No Back Pain, No Neck Pain Skin: Cellulitis (both lower extrimities), No Rash Neurological: No Dizziness, No Focal Weakness, No Sensory Changes Psychological: No Symptoms Endocrine: No Symptoms Hematologic/Lymphatic: No Symptoms Immunological/Allergic: No Symptoms Medications & Allergies Home Medications: Home Medication List Valsartan [Diovan] 160 mg PO HS 07/19/14 [History Confirmed 11/15/21] Aspirin 81 gm Chew [Baby Aspirin 81 mg Chew] 81 mg PO DAILY 03/22/15 [History Confirmed 11/15/21] Metoprolol Succinate 50 mg [Toprol Xl 50 MG] 25 mg PO HS 03/03/19 [History Confirmed 11/15/21] Atorvastatin Calcium [Lipitor 20MG Tablet] 40 mg PO DAILY 10/14/19 [History Confirmed 11/15/21] Isosorbide Mononitrate [Isosorbide Mononitrate ER] 30 mg PO DAILY 10/14/19 [History Confirmed 11/15/21] Meclizine HCl 12.5 mg PO QID 10/14/19 [History Confirmed 11/15/21] Oxybutynin Chloride [Oxybutynin Chloride ER] 5 mg PO HS 12/05/19 [History Confirmed 11/15/21] Tramadol HCl 50 mg [Ultram 50 mg] 50 mg PO QID PRN PRN 11/15/21 [History Confirmed 11/15/21] hydroCHLOROthiazide [Hydrochlorothiazide] 12.5 mg PO DAILY 11/15/21 [History Confirmed 11/15/21] Allergies/Adverse Reactions: Allergies Allergy/AdvReac Type Severity Reaction Status Date / Time cefaclor [From Ceclor] Allergy Verified 05/17/22 18:10 Penicillins Allergy Verified 05/17/22 18:10 acetaminophen [From Vicodin] AdvReac Verified 05/17/22 18:10 celecoxib [From Celebrex] AdvReac Verified 05/17/22 18:10 codeine AdvReac Verified 05/17/22 18:10 hydrocodone [From Vicodin] AdvReac Verified 05/17/22 18:10 morphine AdvReac Verified 05/17/22 18:10 propoxyphene [From Darvon] AdvReac Verified 05/17/22 18:10 - Past Medical History Past Medical History: Yes Neurological History: No Pertinent History ENT History: Cataracts, Macular Degeneration Cardiac History: Arrhythmia, Coronary Artery Disease, High Cholesterol Respiratory History: Lung Cancer Endocrine Medical History: Hypothyroidism Musculoskelatal History: Arthritis, Degenerative Disk Disease, Osteoarthritis GI Medical History: Hernia, Pancreatitis, Other History: No Pertinent History Pyscho-Social History: Anxiety, Depression, Panic Disorder Reproductive Disorders: Vaginal Cancer, Other Comment: bowel blockage, patient denies much of her documented medical history, states she is "easily confused" - Female History Are you now?: No - Past Surgical History Past Surgical History: Yes Neuro Surgical History: No Pertinent History Cardiac History: No Pertinent History, CABG, Cardiac Catheterization Respiratory Surgery: Lobectomy GI Surgical History: Appendectomy, Cholecystectomy, Hernia Repair Genitourinary Surgical Hx: No Pertinent History Musculskeletal Surgical Hx: Orthopedic Surgery Female Surgical History: Hysterectomy Other Surgical History: upper right lung, knee replacement X2, CABG done March 2019 at [place] - Social History Smoking Status: Never smoker Exposure to second hand smoke: Yes Alcohol: None Drug Use: none - Physical Exam Vital Signs: Vital Signs - 24 hr Temp Pulse Resp BP Pulse Ox 05/18/22 16:00 97.6 F 70 16 151/72 97 05/18/22 12:00 97.2 F 74 16 136/63 97 05/18/22 07:10 97.2 F 62 16 138/64 98 05/18/22 04:00 97.1 F 63 18 127/56 97 05/18/22 00:00 98.9 F 84 19 128/70 93 L 05/17/22 20:00 97.1 F 83 18 143/65 98 General Appearance: no apparent distress, alert Neurologic Exam: alert, oriented x 3, cooperative, normal mood/affect, nml cerebellar function, nml station & gait, sensation nml, No motor deficits Eye Exam: PERRL/EOMI, eyes nml inspection Ears, Nose, Throat Exam: normal ENT inspection, TMs normal, pharynx normal, moist mucous membranes Neck Exam: normal inspection, non-tender, supple, full range of motion Respiratory Exam: normal breath sounds, lungs clear, No respiratory distress Cardiovascular Exam: regular rate/rhythm, normal heart sounds, normal peripheral pulses Gastrointestinal/Abdomen Exam: soft, normal bowel sounds, No tenderness, No mass Back Exam: normal inspection, normal range of motion, No CVA tenderness, No vertebral tenderness Extremity Exam: normal inspection, normal range of motion, pelvis stable, inflammation, swelling (both lower extrimities), tenderness Skin Exam: normal color, warm, dry, No rash Lymphatic Exam: No adenopathy Results - Labs Lab/Micro Results: Lab Results-Last 24 Hours 05/17/22 Range/Units 17:20 Sodium 138 (137-145) mmol/L Potassium 3.4 L (3.5-5.1) mmol/L Chloride 102 (98-107) mmol/L Carbon Dioxide 29 (22-30) mmol/L Anion Gap 10.0 (5-15) MEQ/L BUN 11 (7-17) mg/dL Creatinine 0.82 (0.52-1.04) mg/dL Estimated GFR > 60.0 ML/MIN Glucose 88 (74-106) mg/dL Calcium 9.4 (8.4-10.2) mg/dL Total Bilirubin 1.10 (0.2-1.3) mg/dL AST 31 (14-36) U/L ALT 15 (0-35) U/L Alkaline Phosphatase 72 (38-126) U/L Troponin I < 0.012 (0.000-0.034) ng/mL NT-Pro-B Natriuret Pep 710 (0-1800) pg/mL Serum Total Protein 7.0 (6.3-8.2) g/dL Albumin 4.1 (3.5-5.0) g/dL TSH 3rd Generation 2.300 (0.47-4.68) mIU/L - Radiology Impressions Radiology Exams & Impressions: Radiology Procedures Category Date Time Status CHEST 2 VIEWS (PA AND LAT) Routine Exams 05/18/22 00:05 Completed VENOUS BILATERAL EXTREMITY [US] Routine Exams 05/18/22 09:52 Completed Assessment/Plan (1) Cellulitis of both lower extremities Current Visit: Yes Status: Acute Assessment & Plan: Chief Complaint Diagnosis BLE cellulitis Allergies Allergy/AdvReac Type Severity Reaction Status Date / Time cefaclor [From Ceclor] Allergy Verified 05/17/22 18:10 Penicillins Allergy Verified 05/17/22 18:10 acetaminophen [From Vicodin] AdvReac Verified 05/17/22 18:10 celecoxib [From Celebrex] AdvReac Verified 05/17/22 18:10 codeine AdvReac Verified 05/17/22 18:10 hydrocodone [From Vicodin] AdvReac Verified 05/17/22 18:10 morphine AdvReac Verified 05/17/22 18:10 propoxyphene [From Darvon] AdvReac Verified 05/17/22 18:10 Vital Signs (Last 24 hours) Temp Pulse Resp BP Pulse Ox 05/18/22 16:00 97.6 F 70 16 151/72 97 05/18/22 12:00 97.2 F 74 16 136/63 97 05/18/22 07:10 97.2 F 62 16 138/64 98 05/18/22 04:00 97.1 F 63 18 127/56 97 05/18/22 00:00 98.9 F 84 19 128/70 93 L 05/17/22 20:00 97.1 F 83 18 143/65 98 Current Medications Generic Name Dose Route Start Last Admin Trade Name Freq PRN Reason Stop Dose Admin Aspirin 81 mg 05/18/22 10:00 05/18/22 10:26 Aspirin 81 Mg Tablet.Ec PO 06/17/22 09:59 81 mg DAILY LOKESH Administration Calcium Carbonate/Glycine 750 mg 05/18/22 15:43 05/18/22 16:09 Calcium Carbonate 750 Mg 750 Mg Tab.Chew PO 06/17/22 15:42 750 mg Q4HPRN PRN Administration INDIGESTION Enoxaparin Sodium 40 mg 05/17/22 17:00 05/18/22 10:27 Enoxaparin Sodium 40 Mg/0.4 Ml Syringe SQ 06/16/22 16:59 40 mg DAILY LOKESH Administration Furosemide 20 mg 05/18/22 10:00 05/18/22 10:27 Furosemide 20 Mg/Vial IV 06/17/22 09:59 20 mg DAILY LOKESH Administration Hydrochlorothiazide 12.5 mg 05/18/22 10:00 05/18/22 10:26 Hydrochlorothiazide 25 Mg Tablet PO 06/17/22 09:59 12.5 mg DAILY LOKESH Administration Meropenem 1 gm/ Sodium 100 mls @ 200 mls/hr 05/17/22 22:00 05/18/22 13:58 Chloride IV 05/20/22 21:59 200 mls/hr Q8HT LOKESH Administration Isosorbide Mononitrate 30 mg 05/18/22 10:00 05/18/22 10:26 Isosorbide Mononitrate 30 Mg Tab PO 06/17/22 09:59 30 mg DAILY LOKESH Administration Meclizine HCl 12.5 mg 05/18/22 10:00 05/18/22 17:00 Meclizine Hcl 25 Mg Tablet PO 06/17/22 09:59 12.5 mg QID LOKESH Administration Metoprolol Succinate 25 mg 05/18/22 22:00 Metoprolol Succinate 25 Mg Xl Tab PO 06/17/22 21:59 HS LOKESH Oxybutynin Chloride 5 mg 05/18/22 22:00 Oxybutynin Chloride Xl 5 Mg Tab PO 06/17/22 21:59 HS LOKESH Simvastatin 40 mg 05/18/22 10:00 05/18/22 10:26 Simvastatin 20 Mg Tablet PO 06/17/22 09:59 40 mg DAILY LOKESH Administration Tramadol HCl 50 mg 05/17/22 22:00 05/17/22 22:45 Tramadol Hcl 50 Mg Tablet PO 06/16/22 21:59 50 mg QID PRN PRN Administration PAIN Valsartan 160 mg 05/17/22 22:00 05/17/22 22:25 Valsartan 80 Mg Tablet PO 06/16/22 21:59 160 mg HS LOKESH Administration Discontinued Medications Generic Name Dose Route Start Last Admin Trade Name Freq PRN Reason Stop Dose Admin Furosemide 20 mg 05/18/22 15:30 Furosemide 20 Mg/Vial IV 06/17/22 15:29 DAILY LOKESH Furosemide Confirm 05/17/22 18:13 Furosemide 20 Mg/Vial Administered 05/17/22 18:14 Dose 20 mg .ROUTE .STK-MED ONE Furosemide 20 mg 05/17/22 18:19 Furosemide 20 Mg/Vial IV 06/16/22 18:18 DAILY LOKESH Furosemide 20 mg 05/17/22 18:20 05/17/22 18:25 Furosemide 20 Mg/Vial IV 05/17/22 18:21 20 mg ONCE ONE Administration Ceftriaxone Sodium/Dextrose 1 g in 50 mls @ 100 mls/hr 05/17/22 18:00 Rocephin 1 Gm-D5w 50 Ml Bag IV 05/20/22 17:59 Q24H LOKESH Sodium Chloride Confirm 05/18/22 05:24 Sodium Chloride 100ml Mini-Bag Plus Administered 05/18/22 05:25 Dose 100 mls @ ud IV .STK-MED ONE Meropenem Confirm 05/18/22 05:24 Meropenem 1 Gm Vial Administered 05/18/22 05:25 Dose 1 gm IV .STK-MED ONE Metoprolol Succinate 25 mg 05/17/22 22:00 05/17/22 22:25 Metoprolol Succinate 50 Mg Tablet.Sa PO 06/16/22 21:59 25 mg HS LOKESH Administration Metoprolol Succinate Confirm 05/17/22 22:17 Metoprolol Succinate 25 Mg Xl Tab Administered 05/17/22 22:18 Dose 50 mg .ROUTE .STK-MED ONE Oxybutynin Chloride 5 mg 05/17/22 22:00 05/17/22 22:25 Oxybutynin Chloride 5 Mg Tablet PO 06/16/22 21:59 5 mg HS LOKESH Administration Intake & Output (Last 24 hours) 05/16/22 05/17/22 05/18/22 05/19/22 11:59 11:59 11:59 11:59 Intake Total 568 860 Output Total 1700 900 Balance -1132 -40 Weight 57.8 kg Microbiology Results (Last 24 hours) 05/17/22 17:20 Blood Blood Culture Gram Stain - Pending 05/17/22 17:20 Blood Blood Culture - Pending Laboratory Results (Last 24 hours) 05/17/22 17:20 Sodium 138 Potassium 3.4 L Chloride 102 Carbon Dioxide 29 Anion Gap 10.0 BUN 11 Creatinine 0.82 Estimated GFR > 60.0 Glucose 88 Calcium 9.4 Total Bilirubin 1.10 AST 31 ALT 15 Alkaline Phosphatase 72 Troponin I < 0.012 NT-Pro-B Natriuret Pep 710 Serum Total Protein 7.0 Albumin 4.1 TSH 3rd Generation 2.300 Orders (Last 24 hours) Category Date Time Status Consult Podiatry ROUTINE Cons 05/18/22 09:12 Completed CHEST 2 VIEWS (PA AND LAT) Routine Exams 05/18/22 00:05 Completed VENOUS BILATERAL EXTREMITY [US] Routine Exams 05/18/22 09:52 Completed BLOOD CULTURE Urgent Lab 05/17/22 17:20 Received CBC Urgent Lab 05/17/22 17:20 Completed CMP Urgent Lab 05/17/22 17:20 Completed NT PRO BNP Urgent Lab 05/17/22 17:20 Completed TROPONIN Urgent Lab 05/17/22 17:20 Completed TSH, 3RD Generation Urgent Lab 05/17/22 17:20 Completed Aspirin EC 81 mg [Ecotrin 81 mg] Med 05/18/22 10:00 Active 81 mg PO DAILY Calcium Carbonate 750 mg [Tums EX 750 MG] Med 05/18/22 15:43 Active 750 mg PO Q4HPRN PRN Ceftriaxone 1 GM/50 ML PREMIX* [ROCEPHIN 1 Gm-D5w 50 ml Med 05/17/22 18:00 Discontinued Bag] 1 g in 50 ml IV Q24H Furosemide 20 mg/2 ml [Lasix 20 MG/2 ML] Med 05/17/22 18:13 Discontinued 20 mg .ROUTE .STK-MED ONE Furosemide 20 mg/2 ml [Lasix 20 MG/2 ML] Med 05/17/22 18:19 Discontinued 20 mg IV DAILY Furosemide 20 mg/2 ml [Lasix 20 MG/2 ML] Med 05/18/22 10:00 Active 20 mg IV DAILY Furosemide 20 mg/2 ml [Lasix 20 MG/2 ML] Med 05/18/22 15:30 Discontinued 20 mg IV DAILY Furosemide 20 mg/2 ml [Lasix 20 MG/2 ML] Med 05/17/22 18:20 Discontinued 20 mg IV ONCE ONE Hydrochlorothiazide 25 mg [hydroDIURIL 25 MG] Med 05/18/22 10:00 Active 12.5 mg PO DAILY Isosorbide Mononitrate 30 mg [Imdur 30 MG] Med 05/18/22 10:00 Active 30 mg PO DAILY Meclizine HCl 25 mg [Antivert 25 mg] Med 05/18/22 10:00 Active 12.5 mg PO QID Meropenem [Merrem] Med 05/18/22 05:24 Discontinued 1 gm IV .STK-MED ONE Meropenem [Merrem] 1 gm Med 05/17/22 22:00 Active NaCl 0.9% 100 ml Mini-Bag Plus [Sodium Chloride 100ML MINI-BAG PLUS] 100 ml IV Q8HT Metoprolol Succinate 25 mg Xl* [Toprol-Xl 25MG Tablets* Med 05/18/22 22:00 Active ] 25 mg PO HS Metoprolol Succinate 25 mg Xl* [Toprol-Xl 25MG Tablets* Med 05/17/22 22:17 Discontinued ] 50 mg .ROUTE .STK-MED ONE Metoprolol Succinate 50 mg [Toprol Xl 50 MG] Med 05/17/22 22:00 Discontinued 25 mg PO HS NaCl 0.9% 100 ml Mini-Bag Plus [Sodium Chloride 100ML Med 05/18/22 05:24 Discontinued MINI-BAG PLUS] 100 ml IV UD Oxybutynin Chloride 5 mg [Ditropan 5 MG] Med 05/17/22 22:00 Discontinued 5 mg PO HS Oxybutynin Chloride Xl 5 mg [Ditropan XL 5 MG] Med 05/18/22 22:00 Active 5 mg PO HS Simvastatin 20Mg [Zocor 20Mg] Med 05/18/22 10:00 Active 40 mg PO DAILY Tramadol HCl 50 mg [Ultram 50 mg] Med 05/17/22 22:00 Active 50 mg PO QID PRN PRN Valsartan 80 mg [Diovan 80 mg] Med 05/17/22 22:00 Active 160 mg PO HS Patient Care Notes (Last 24 hours) 05/18/22 10:50 Physical Therapy Note by Hreson(Christopher#[id number])Sarah REPORTED THAT DR. MC IS CONSULTING ON PT. FOR LL CELLULITIS. NO OPEN WOUNDS OR DRAINAGE NOTED. MIN ERYTHEMA. MODERATE-SEVERE LL EDEMA NOTED L > R. NO P.T. INTERVENTION WARRANTED AT THIS TIME. WILL DEFER TO DR. MC. Initialized on 05/18/22 10:50 - END OF NOTE 05/18/22 09:21 Nursing Note by Gaviota Xiao I called Podiatry consult to 's office and spoke with Eleno. Dr.S sorto will see patient today. Initialized on 05/18/22 09:21 - END OF NOTE Code(s): L03.115 - CELLULITIS OF RIGHT LOWER LIMB; L03.116 - CELLULITIS OF LEFT LOWER LIMB (2) Localized edema due to fluid overload Current Visit: Yes Status: Acute Code(s): E87.70 - FLUID OVERLOAD, UNSPECIFIED (3) Venous insufficiency of both lower extremities Current Visit: Yes Status: Acute Code(s): I87.2 - VENOUS INSUFFICIENCY (CHRONIC) (PERIPHERAL) (4) HTN (hypertension) Current Visit: No Status: Chronic Qualifiers: Hypertension type: primary hypertension Qualified Code(s): I10 - Essential (primary) hypertension Code(s): I10 - ESSENTIAL (PRIMARY) HYPERTENSION
[2022-05-18] MEDS: DIOVAN 80 MG PO SCH (21:07)
[2022-05-18] MEDS: ULTRAM 50 MG PO PRN (21:07)
[2022-05-18] MEDS ORDERED: Toprol-Xl 25MG Tablets PO SCH (22:00)
[2022-05-18] MEDS ORDERED: Ditropan XL 5 MG PO SCH (22:00)
[2022-05-19] MEDS: Merrem 1 GM in Sodium Chloride 100ML MINI-BAG PLUS 100 ML IV SCH (05:04)
[2022-05-19 07:49] VITALS: BP 145/67; PULSE 56; O2SAT 94
[2022-05-19 07:58] LABS: Hematocrit 35.4 % (35-47); Hemoglobin 11.8 g/dL (12.0-16.0); Mean Cell Volume 94.7 fL (78-100); Mean Corpuscular Hemoglobin 31.6 pg (26-32); Mean Corpuscular Hgb Concent. 33.3 g/dL (32-36); Mean Platelet Volume 9.8 fL (7.5-11.0); Platelet Count 150 x10^3/uL (150-450); Red Blood Count 3.74 x10^6/uL (4.1-5.4); Red Cell Distribution Width 13.8 % (11.5-14.0); White Blood Count 3.2 x10^3/uL (4.0-10.5)
[2022-05-19 08:22] LABS: ANION GAP 8.6 MEQ/L (5-15); BLOOD UREA NITROGEN 11 mg/dL (7-17); CHLORIDE 102 mmol/L (98-107); Calcium 8.7 mg/dL (8.4-10.2); Carbon Dioxide 30 mmol/L (22-30); Creatinine 1 0.66 mg/dL (0.52-1.04); EST GLOMERULAR FILTRATION RATE > 60.0 ML/MIN; Glucose 96 mg/dL (74-106); Potassium 3.4 mmol/L (3.5-5.1); SODIUM 137 mmol/L (137-145)
[2022-05-19] MEDS: ECOTRIN 81 MG PO SCH (09:19)
[2022-05-19] MEDS: Imdur 30 MG PO SCH (09:19)
[2022-05-19] MEDS: ANTIVERT 25 MG PO SCH (09:19)
[2022-05-19] MEDS: Lasix 20 MG/2 ML IV SCH (09:20)
[2022-05-19] MEDS: ENOXAPARIN SODIUM SQ SCH (09:20)
[2022-05-19] MEDS: hydroDIURIL 25 MG PO SCH (09:20)
[2022-05-19] MEDS: ZOCOR 20MG PO SCH (09:20)
--- NOTE | 2022-05-19 17:11 | PCM.NOTE ---
Date and Time: 05/19/221710 Subjective Assessment: progressing without complication. She denies any other pedal complaints at this time Physical Exam - General General Appearance: no apparent distress - Neuro Neurologic: Epicritic and protopathic - Vascular Peripheral Pulses: Posterior tibialis: 2+, Dorsalis-Pedis: 2+ Capillary Refill Time: < 3 seconds Hair Growth: Symmetrical and Bilateral Varicosities: Positive Edema: Pitting Edema Degree: 3+ Skin: Supple, not atrophic - Muscular Muscle Strength: 5/5 on all 4 quadrants - Narrative Narrative Physical Exam: Podiatry Physical Exam OBJECTIVE DATA Vital Signs: Vital Signs - 24 hr Temp Pulse Resp BP Pulse Ox 05/19/22 07:44 97.9 F 56 L 17 145/67 94 L 05/19/22 04:00 97.1 F 61 18 143/65 95 05/19/22 00:00 97.5 F 75 18 151/80 96 05/18/22 20:00 97.5 F 70 18 145/69 98 Pain Assessment - Last Documented Pain Intensity 0 Intake and Output: Intake & Output 05/17/22 05/18/22 05/19/22 05/20/22 11:59 11:59 11:59 11:59 Intake Total 568 980 Output Total 1950 1950 Balance -1382 -970 Weight 57.8 kg 55.5 kg Lab Results: Lab Results-Last 24 Hours 05/19/22 05/19/22 Range/Units 07:31 07:31 WBC 3.2 L (4.0-10.5) x10^3/uL RBC 3.74 L (4.1-5.4) x10^6/uL Hgb 11.8 L (12.0-16.0) g/dL Hct 35.4 (35-47) % MCV 94.7 (78-100) fL MCH 31.6 (26-32) pg MCHC 33.3 (32-36) g/dL RDW 13.8 (11.5-14.0) % Plt Count 150 (150-450) x10^3/uL MPV 9.8 (7.5-11.0) fL Sodium 137 (137-145) mmol/L Potassium 3.4 L (3.5-5.1) mmol/L Chloride 102 (98-107) mmol/L Carbon Dioxide 30 (22-30) mmol/L Anion Gap 8.6 (5-15) MEQ/L BUN 11 (7-17) mg/dL Creatinine 0.66 (0.52-1.04) mg/dL Estimated GFR > 60.0 ML/MIN Glucose 96 (74-106) mg/dL Calcium 8.7 (8.4-10.2) mg/dL Radiology Exams: Radiology Procedures Category Date Time Status CHEST 2 VIEWS (PA AND LAT) Routine Exams 05/18/22 00:05 Completed VENOUS BILATERAL EXTREMITY [US] Routine Exams 05/18/22 09:52 Completed Multi-Disciplinary Progress Notes: Multi-Disciplinary Progress Notes 05/19/22 10:12 Case Management Note by Juliana Grossman S/W PATIENT- SHE CONTINUES TO DENY ANY NEW NEEDS AT TIME OF DC. SHE PLANS TO RETURN HOME TO HER PRIOR LEVEL OF FUNCTIONING WITH HER TO ASSIST HER NEEDED Initialized on 05/19/22 10:12 - END OF NOTE Assessment/Plan (1) Venous insufficiency of both lower extremities Status: Acute Assessment & Plan: patient examination evaluation. Venous Dopplers obtained demonstrating negative for DVT to the bilateral lower extremity. Patient does have significant pitting edema to the bilateral lower extremity which is new for her. In combination with medical management of a diuretic patient would benefit with compression therapy. Nail care provided 1-5 on the right and 1-5 on the left utilizing a nail nipper and dremmel to the patients apparent satisfaction and without incidence. Will follow closely if plan for discharge follow-up within 1 week's time of discharge to my clinic. Discharge instructions for leave dressings clean dry and intact until reassessment in clinic 1 week from DC date Code(s): I87.2 - VENOUS INSUFFICIENCY (CHRONIC) (PERIPHERAL) (2) Localized edema due to fluid overload Status: Acute Code(s): E87.70 - FLUID OVERLOAD, UNSPECIFIED (3) PVD (peripheral vascular disease) Status: Acute Code(s): I73.9 - PERIPHERAL VASCULAR DISEASE, UNSPECIFIED (4) Onychomycosis Status: Acute Code(s): B35.1 - TINEA UNGUIUM
--- NOTE | 2022-05-19 18:27 | PCM.DS ---
Discharge Summary Date of Admission: 05/17/22 16:35 Admitting Physician: JOSE COFFEY Consults: Consults on Case 05/18/22 09:12 Consult Podiatry ROUTINE Primary Care Provider: JOSE COFFEY Allergies Allergies cefaclor [From Ceclor] Allergy (Verified 05/17/22 18:10) Penicillins Allergy (Verified 05/17/22 18:10) acetaminophen [From Vicodin] Adverse Reaction (Verified 05/17/22 18:10) celecoxib [From Celebrex] Adverse Reaction (Verified 05/17/22 18:10) codeine Adverse Reaction (Verified 05/17/22 18:10) hydrocodone [From Vicodin] Adverse Reaction (Verified 05/17/22 18:10) morphine Adverse Reaction (Verified 05/17/22 18:10) propoxyphene [From Darvon] Adverse Reaction (Verified 05/17/22 18:10) Hospital Summary - Hospital Course Hospital Course: Chief Complaint Diagnosis swelling of both lower extrimities for 1 week Allergies Allergy/AdvReac Type Severity Reaction Status Date / Time cefaclor [From Ceclor] Allergy Verified 05/17/22 18:10 Penicillins Allergy Verified 05/17/22 18:10 acetaminophen [From Vicodin] AdvReac Verified 05/17/22 18:10 celecoxib [From Celebrex] AdvReac Verified 05/17/22 18:10 codeine AdvReac Verified 05/17/22 18:10 hydrocodone [From Vicodin] AdvReac Verified 05/17/22 18:10 morphine AdvReac Verified 05/17/22 18:10 propoxyphene [From Darvon] AdvReac Verified 05/17/22 18:10 Vital Signs (Last 24 hours) Temp Pulse Resp BP Pulse Ox 05/19/22 07:44 97.9 F 56 L 17 145/67 94 L 05/19/22 04:00 97.1 F 61 18 143/65 95 05/19/22 00:00 97.5 F 75 18 151/80 96 05/18/22 20:00 97.5 F 70 18 145/69 98 Home Medications Medication Instructions Recorded Confirmed Last Taken Type Furosemide 40 mg [Lasix 40 40 mg PO DAILY 30 Days #30 tablet 05/19/22 Unknown Rx MG] Potassium Chloride 10 meq PO DAILY 30 Days #30 05/19/22 Unknown Rx Current Medications Discontinued Medications Generic Name Dose Route Start Last Admin Trade Name Freq PRN Reason Stop Dose Admin Aspirin 81 mg 05/18/22 10:00 05/19/22 09:19 Aspirin 81 Mg Tablet.Ec PO 06/17/22 09:59 81 mg DAILY LOKESH Administration Calcium Carbonate/Glycine 750 mg 05/18/22 15:43 05/18/22 16:09 Calcium Carbonate 750 Mg 750 Mg Tab.Chew PO 06/17/22 15:42 750 mg Q4HPRN PRN Administration INDIGESTION Enoxaparin Sodium 40 mg 05/17/22 17:00 05/19/22 09:20 Enoxaparin Sodium 40 Mg/0.4 Ml Syringe SQ 06/16/22 16:59 40 mg DAILY LOKESH Administration Furosemide 20 mg 05/18/22 15:30 Furosemide 20 Mg/Vial IV 06/17/22 15:29 DAILY LOKESH Furosemide Confirm 05/17/22 18:13 Furosemide 20 Mg/Vial Administered 05/17/22 18:14 Dose 20 mg .ROUTE .STK-MED ONE Furosemide 20 mg 05/17/22 18:19 Furosemide 20 Mg/Vial IV 06/16/22 18:18 DAILY LOKESH Furosemide 20 mg 05/17/22 18:20 05/17/22 18:25 Furosemide 20 Mg/Vial IV 05/17/22 18:21 20 mg ONCE ONE Administration Furosemide 20 mg 05/18/22 10:00 05/19/22 09:20 Furosemide 20 Mg/Vial IV 06/17/22 09:59 20 mg DAILY LOKESH Administration Hydrochlorothiazide 12.5 mg 05/18/22 10:00 05/19/22 09:20 Hydrochlorothiazide 25 Mg Tablet PO 06/17/22 09:59 12.5 mg DAILY LOKESH Administration Ceftriaxone Sodium/Dextrose 1 g in 50 mls @ 100 mls/hr 05/17/22 18:00 Rocephin 1 Gm-D5w 50 Ml Bag IV 05/20/22 17:59 Q24H LOKESH Meropenem 1 gm/ Sodium 100 mls @ 200 mls/hr 05/17/22 22:00 05/19/22 05:04 Chloride IV 05/20/22 21:59 200 mls/hr Q8HT LOKESH Administration Sodium Chloride Confirm 05/18/22 05:24 Sodium Chloride 100ml Mini-Bag Plus Administered 05/18/22 05:25 Dose 100 mls @ ud IV .STK-MED ONE Isosorbide Mononitrate 30 mg 05/18/22 10:00 05/19/22 09:19 Isosorbide Mononitrate 30 Mg Tab PO 06/17/22 09:59 30 mg DAILY LOKESH Administration Meclizine HCl 12.5 mg 05/18/22 10:00 05/19/22 09:19 Meclizine Hcl 25 Mg Tablet PO 06/17/22 09:59 12.5 mg QID LOKESH Administration Meropenem Confirm 05/18/22 05:24 Meropenem 1 Gm Vial Administered 05/18/22 05:25 Dose 1 gm IV .STK-MED ONE Metoprolol Succinate 25 mg 05/17/22 22:00 05/17/22 22:25 Metoprolol Succinate 50 Mg Tablet.Sa PO 06/16/22 21:59 25 mg HS LOKESH Administration Metoprolol Succinate Confirm 05/17/22 22:17 Metoprolol Succinate 25 Mg Xl Tab Administered 05/17/22 22:18 Dose 50 mg .ROUTE .STK-MED ONE Metoprolol Succinate 25 mg 05/18/22 22:00 05/18/22 21:08 Metoprolol Succinate 25 Mg Xl Tab PO 06/17/22 21:59 25 mg HS LOKESH Administration Oxybutynin Chloride 5 mg 05/17/22 22:00 05/17/22 22:25 Oxybutynin Chloride 5 Mg Tablet PO 06/16/22 21:59 5 mg HS LOKESH Administration Oxybutynin Chloride 5 mg 05/18/22 22:00 05/18/22 21:08 Oxybutynin Chloride Xl 5 Mg Tab PO 06/17/22 21:59 5 mg HS LOKESH Administration Simvastatin 40 mg 05/18/22 10:00 05/19/22 09:20 Simvastatin 20 Mg Tablet PO 06/17/22 09:59 40 mg DAILY LOKESH Administration Tramadol HCl 50 mg 05/17/22 22:00 05/18/22 21:07 Tramadol Hcl 50 Mg Tablet PO 06/16/22 21:59 50 mg QID PRN PRN Administration PAIN Valsartan 160 mg 05/17/22 22:00 05/18/22 21:07 Valsartan 80 Mg Tablet PO 06/16/22 21:59 160 mg HS LOKESH Administration Intake & Output (Last 24 hours) 05/17/22 05/18/22 05/19/22 05/20/22 11:59 11:59 11:59 11:59 Intake Total 568 980 Output Total 1950 1950 Balance -1382 -970 Weight 57.8 kg 55.5 kg Microbiology Results (Last 24 hours) 05/17/22 17:20 Blood Blood Culture Gram Stain - Pending 05/17/22 17:20 Blood Blood Culture - Preliminary NO GROWTH TO DATE Laboratory Results (Last 24 hours) 05/19/22 05/19/22 07:31 07:31 WBC 3.2 L RBC 3.74 L Hgb 11.8 L Hct 35.4 MCV 94.7 MCH 31.6 MCHC 33.3 RDW 13.8 Plt Count 150 MPV 9.8 Sodium 137 Potassium 3.4 L Chloride 102 Carbon Dioxide 30 Anion Gap 8.6 BUN 11 Creatinine 0.66 Estimated GFR > 60.0 Glucose 96 Calcium 8.7 Orders (Last 24 hours) Category Date Time Status Discharge Routine Discharge 05/19/22 Ordered BMP Urgent Lab 05/19/22 07:31 Completed CBC Urgent Lab 05/19/22 07:31 Completed Metoprolol Succinate 25 mg Xl* [Toprol-Xl 25MG Tablets* Med 05/18/22 22:00 Discontinued ] 25 mg PO HS Oxybutynin Chloride Xl 5 mg [Ditropan XL 5 MG] Med 05/18/22 22:00 Discontinued 5 mg PO HS Patient Care Notes (Last 24 hours) 05/19/22 10:12 Case Management Note by Juliana Grossman S/W PATIENT- SHE CONTINUES TO DENY ANY NEW NEEDS AT TIME OF DC. SHE PLANS TO RETURN HOME TO HER PRIOR LEVEL OF FUNCTIONING WITH HER TO ASSIST HER NEEDED Initialized on 05/19/22 10:12 - END OF NOTE 05/19/22 09:14 Nursing Note by Lea Gusman Dr called to check on patient. He said to send the patient home today. Continue home medications. Start Lasix 40 mg po daily and Potassium 10meq po daily. follow up with dr. mc outpatient. Follow up with Dr. Coffey in 2 weeks at the [facility] [place]. Follow up with PT if recommended. Spoke with Sarah Bains and PT outpatient is not recommended at this time. Initialized on 05/19/22 09:14 - END OF NOTE - Vitals & Intake/Output Vital Signs: Vital Signs Temperature 97.9 F 05/19/22 07:44 Pulse Rate 56 L 05/19/22 07:44 Respiratory Rate 17 05/19/22 07:44 Blood Pressure 145/67 05/19/22 07:44 O2 Sat by Pulse Oximetry 94 L 05/19/22 07:44 Intake & Output: Intake & Output 05/17/22 05/18/22 05/19/22 05/20/22 11:59 11:59 11:59 11:59 Intake Total 568 980 Output Total 1950 1950 Balance -1382 -970 Weight 57.8 kg 55.5 kg - Lab Result Diagrams: 05/19/22 07:31 05/19/22 07:31 Lab Results-Last 24 Hrs: Lab Results-Last 24 Hours 05/19/22 05/19/22 Range/Units 07:31 07:31 WBC 3.2 L (4.0-10.5) x10^3/uL RBC 3.74 L (4.1-5.4) x10^6/uL Hgb 11.8 L (12.0-16.0) g/dL Hct 35.4 (35-47) % MCV 94.7 (78-100) fL MCH 31.6 (26-32) pg MCHC 33.3 (32-36) g/dL RDW 13.8 (11.5-14.0) % Plt Count 150 (150-450) x10^3/uL MPV 9.8 (7.5-11.0) fL Sodium 137 (137-145) mmol/L Potassium 3.4 L (3.5-5.1) mmol/L Chloride 102 (98-107) mmol/L Carbon Dioxide 30 (22-30) mmol/L Anion Gap 8.6 (5-15) MEQ/L BUN 11 (7-17) mg/dL Creatinine 0.66 (0.52-1.04) mg/dL Estimated GFR > 60.0 ML/MIN Glucose 96 (74-106) mg/dL Calcium 8.7 (8.4-10.2) mg/dL Micro Results-Entire Visit: Microbiology 05/17/22 17:20 Blood Culture - Preliminary Blood NO GROWTH TO DATE - Radiology Exams Ordered Rad Exams-Entire Visit: Radiology Procedures Category Date Time Status CHEST 2 VIEWS (PA AND LAT) Routine Exams 05/18/22 00:05 Completed VENOUS BILATERAL EXTREMITY [US] Routine Exams 05/18/22 09:52 Completed Discharge Exam General Appearance: no apparent distress, alert Neurologic Exam: alert, oriented x 3, cooperative, normal mood/affect, nml cerebellar function, sensation nml, No motor deficits Eye Exam: PERRL, EOMI, eyes nml inspection Ears, Nose, Throat Exam: normal ENT inspection, pharynx normal, moist mucous membranes Neck Exam: normal inspection, non-tender, supple, full range of motion Respiratory Exam: normal breath sounds, lungs clear, No respiratory distress Cardiovascular Exam: regular rate/rhythm, normal heart sounds Gastrointestinal/Abdomen Exam: soft, No tenderness, No mass Pelvic Exam: deferred Rectal Exam: deferred Back Exam: normal inspection, normal range of motion, No CVA tenderness, No vertebral tenderness Extremity Exam: normal inspection, normal range of motion Skin Exam: normal color, warm, dry Final Diagnosis/Problem List - Final Discharge Diagnosis/Problem (1) Cellulitis of both lower extremities Status: Acute Code(s): L03.115 - CELLULITIS OF RIGHT LOWER LIMB; L03.116 - CELLULITIS OF LEFT LOWER LIMB (2) Localized edema due to fluid overload Status: Acute Code(s): E87.70 - FLUID OVERLOAD, UNSPECIFIED (3) Venous insufficiency of both lower extremities Status: Acute Code(s): I87.2 - VENOUS INSUFFICIENCY (CHRONIC) (PERIPHERAL) (4) HTN (hypertension) Status: Chronic Code(s): I10 - ESSENTIAL (PRIMARY) HYPERTENSION - Discharge Discharge Date: 05/19/22 Disposition: Home, Self-Care Condition: Stable Prescriptions: New Furosemide 40 mg [Lasix 40 MG] 40 mg PO DAILY 30 Days #30 tablet Potassium Chloride 10 meq PO DAILY 30 Days #30 Continue Valsartan [Diovan] 160 mg PO HS Aspirin 81 gm Chew [Baby Aspirin 81 mg Chew] 81 mg PO DAILY Metoprolol Succinate 50 mg [Toprol Xl 50 MG] 25 mg PO HS Meclizine HCl 12.5 mg PO QID Isosorbide Mononitrate [Isosorbide Mononitrate ER] 30 mg PO DAILY Atorvastatin Calcium [Lipitor 20MG Tablet] 40 mg PO DAILY Oxybutynin Chloride [Oxybutynin Chloride ER] 5 mg PO HS hydroCHLOROthiazide [Hydrochlorothiazide] 12.5 mg PO DAILY Tramadol HCl 50 mg [Ultram 50 mg] 50 mg PO QID PRN PRN PRN Reason: Pain Instructions: Cellulitis (Skin Infection), Adult (DC) Additional Instructions: LEAVE DRESSINGS INTACT ON BILATERAL LEGS UNTIL YOU SEE DR. MC AT YOUR FOLLOW UP Follow up with: ALEXANDRO HINKLE DPM [ACTIVE STAFF] - 05/25/22 11:00 am JOSE COFFEY MD [Primary Care Provider] - 05/30/22 2:30 pm (APPOINTMENT WILL BE AT THE [place] OFFICE) Forms: Discharge Instructions
== END 2022-05-19 10:41 | disposition home or self-care (01) ==
LOC: MED SURG 16:35
PROVIDERS: ADMIT General Practice; ATTEND General Practice
DX: L03.115 Cellulitis of right lower limb (principal); L03.116 Cellulitis of left lower limb; E87.70 Fluid overload, unspecified; I87.2 Venous insufficiency (chronic) (peripheral); I10 Essential (primary) hypertension; E78.00 Pure hypercholesterolemia, unspecified; I25.10 Atherosclerotic heart disease of native coronary artery without angina pectoris; I73.9 Peripheral vascular disease, unspecified; B35.1 Tinea unguium; E03.9 Hypothyroidism, unspecified; I49.9 Cardiac arrhythmia, unspecified; Z85.118 Personal history of other malignant neoplasm of bronchus and lung; Z79.899 Other long term (current) drug therapy; Z20.828 Contact with and (suspected) exposure to other viral communicable diseases
CPT/HCPCS: 0241U; 11721; 29580; 36415; 71046; 80048; 80053; 83880; 84443; 84484; 85027; 87040; 93970; 99219; 99226; G0378; J1650; J1940; A9270-GY

== ENCOUNTER 2022-11-28 11:05 | Emergency (ER) | payer MEDICARE ==
--- NOTE | 2022-11-28 11:12 | ERPHSYRPT ---
- History of Present Illness Time Seen by Provider: 11/28/22 11:11 Source: patient Exam Limitations: no limitations Physician History: This is an 82-year-old white female patient of Dr. Coffey who presents with a syncopal episode and dizziness while bending over to adjust her lower extremity bandage. Patient then laid herself down and was having trouble getting up. Patient arrives to the emergency department with a blood pressure of 176/87. She has some complaints of some mild central, substernal, nonradiating chest pain that she describes as a pressure. Patient does have a history of coronary artery disease and has had a CABG as well as cardiac catheterization in the past. She does have a history of vertigo and has been on meclizine in the past. She did not take any meclizine prior to arrival to the emergency department. Patient has a history of hypertension, hyperlipidemia as well as dementia, gastroesophageal reflux disease and anxiety/panic disorder. Timing/Duration: today Severity: mild (To moderate) Deficits: decrease ability to walk, weak Baseline/Normal Cognition: alert oriented x 3 Current Cognition: alert oriented x 3 Baseline Gait: walks w/o assistance Associated Symptoms: weakness, chest pain (Nonradiating, pressure, substernal and central), No nausea, No vomiting, No slurred speech, No vision changes, No headache Allergies/Adverse Reactions: cefaclor [From Ceclor] Allergy (Verified 11/28/22 11:32) Penicillins Allergy (Verified 11/28/22 11:32) acetaminophen [From Vicodin] Adverse Reaction (Verified 11/28/22 11:32) celecoxib [From Celebrex] Adverse Reaction (Verified 11/28/22 11:32) codeine Adverse Reaction (Verified 11/28/22 11:32) hydrocodone [From Vicodin] Adverse Reaction (Verified 11/28/22 11:32) morphine Adverse Reaction (Verified 11/28/22 11:32) propoxyphene [From Darvon] Adverse Reaction (Verified 11/28/22 11:32) Home Medications: Valsartan [Diovan] 160 mg PO HS 07/19/14 [History] Aspirin 81 gm Chew [Baby Aspirin 81 mg Chew] 81 mg PO DAILY 03/22/15 [History] Metoprolol Succinate 50 mg [Toprol Xl 50 MG] 25 mg PO HS 03/03/19 [History] Atorvastatin Calcium [Lipitor 20MG Tablet] 40 mg PO DAILY 10/14/19 [History] Isosorbide Mononitrate [Isosorbide Mononitrate ER] 30 mg PO DAILY 10/14/19 [History] Meclizine HCl 12.5 mg PO QID 10/14/19 [History] Oxybutynin Chloride [Oxybutynin Chloride ER] 5 mg PO HS 12/05/19 [History] Tramadol HCl 50 mg [Ultram 50 mg] 50 mg PO QID PRN PRN 11/15/21 [History] hydroCHLOROthiazide [Hydrochlorothiazide] 12.5 mg PO DAILY 11/15/21 [History] Hx Tetanus, Diphtheria Vaccination/Date Given: Yes Hx Influenza Vaccination/Date Given: Yes Hx Pneumococcal Vaccination/Date Given: Yes Travel Risk - International Travel Have you traveled outside of the country in past 3 weeks: No - Coronavirus Screening Are you exhibiting any of the following symptoms?: No Close contact with a COVID-19 positive Pt in past 14-21 Days: No - Vaccine Status Have you recieved a Covid-19 vaccination: Yes 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 Comment: patient cannot remember when she had the vaccinations - Review of Systems Constitutional: Weakness Eyes: No Symptoms Ears, Nose, & Throat: No Symptoms Respiratory: No Symptoms Cardiac: Chest Pain (Substernal, central, nonradiating pressure) Abdominal/Gastrointestinal: No Symptoms Genitourinary Symptoms: No Symptoms Musculoskeletal: No Symptoms Skin: No Symptoms Neurological: Dizziness Psychological: No Symptoms Endocrine: No Symptoms Hematologic/Lymphatic: No Symptoms Immunological/Allergic: No Symptoms All Other Systems: Reviewed and Negative - Past Medical History Pertinent Past Medical History: Yes Neurological History: No Pertinent History ENT History: Cataracts, Macular Degeneration Cardiac History: Hypertension Respiratory History: No Pertinent History Endocrine Medical History: No Pertinent History Musculoskeletal History: Osteoarthritis GI Medical History: Hernia, Pancreatitis, Other History: No Pertinent History Psycho-Social History: Anxiety, Depression, Panic Disorder 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, Other Other Medical History: DIZZINESS, VERTIGO, BLOOD PRESSURE, DEMETIA, HEART BURN. - Past Surgical History Past Surgical History: Yes Neuro Surgical History: No Pertinent History Cardiac: No Pertinent History, CABG, Cardiac Catheterization Respiratory: Lobectomy Gastrointestinal: Appendectomy, Cholecystectomy, Hernia Repair Genitourinary: No Pertinent History Musculoskeletal: Orthopedic Surgery Female Surgical History: Hysterectomy Other Surgical History: upper right lung, knee replacement X2, CABG done March 2019 at [place] - Social History Smoking Status: Never smoker Exposure to second hand smoke: Yes Drug Use: none Patient Lives Alone: No - Nursing Vital Signs Nursing Vital Signs: Initial Vital Signs Pulse Rate 63 11/28/22 11:12 Blood Pressure 176/87 11/28/22 11:12 O2 Sat by Pulse Oximetry 99 11/28/22 11:12 Pain Scale Pain Intensity 0 - [place] Coma Scale Best Eye Response ([place]): (4) open spontaneously Best Verbal Response ([place]): (5) oriented Best Motor Response ([place]): (6) obeys commands [place] Total: 15 - Physical Exam General Appearance: no apparent distress, alert, anxiety Eye Exam: bilateral eye: normal inspection, PERRL, EOMI Ears, Nose, Throat Exam: normal ENT inspection, moist mucous membranes Neck Exam: normal inspection, non-tender, supple, full range of motion Respiratory: normal breath sounds, lungs clear, airway intact, No chest tenderness, No respiratory distress Cardiovascular: regular rate/rhythm, normal heart sounds, normal peripheral pulses Gastrointestinal: soft, normal bowel sounds, No tenderness Pelvic Exam: not done Rectal Exam: not done Back Exam: normal inspection, normal range of motion, No CVA tenderness, No vertebral tenderness Extremity Exam: normal inspection, normal range of motion, pelvis stable Mental Status: alert, oriented 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, 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 Exam: normal hearing, normal speech, PERRL Coordination/Gait: normal gait, normal cerebellar function Motor/Sensory: no motor deficit, no sensory deficit, no pronator drift Skin Exam: normal color, warm, dry SpO2 Interpretation: normal O2 Delivery: Room Air - Course Nursing assessment & vital signs reviewed: Yes EKG Interpreted by Me: RATE (59), Sinus Rhythm, NORMAL AXIS, NORMAL INTERVALS, NORMAL QRS, NORMAL ST-T, Other (No acute ischemic changes on today's EKG this EKG was interpreted by me) Ordered Tests: Active Orders 24 hr Category Date Time Status Production Line Manager STAT Care 11/28/22 11:18 Active EKG-ER Only STAT Care 11/28/22 11:18 Active IV Insertion STAT Care 11/28/22 11:18 Active POCT Glucose Check STAT Care 11/28/22 11:18 Active cath [Cath for Specimen-Straight] STAT Care 11/28/22 11:31 Active HEAD WITHOUT CONTRAST [CT] Stat Exams 11/28/22 11:18 Completed CBC W DIFF Stat Lab 11/28/22 11:30 Completed CMP Stat Lab 11/28/22 11:30 Completed CULTURE,URINE Stat Lab 11/28/22 11:32 Received TROPONIN Q4H Lab 11/28/22 11:30 Completed TROPONIN Q4H Lab 11/28/22 15:30 Ordered TROPONIN Q4H Lab 11/28/22 19:30 Ordered TROPONIN Q4H Lab 11/28/22 23:30 Ordered UA W/RFX UR CULTURE Stat Lab 11/28/22 11:32 Completed Medication Summary Generic Name Dose Route Start Last Admin Trade Name Freq PRN Reason Stop Dose Admin Sodium Chloride 1,000 mls @ 100 mls/hr 11/28/22 11:30 11/28/22 11:34 Sodium Chloride 0.9% 1000 Ml IV 12/28/22 11:29 100 mls/hr .Q10H LOKESH Administration Levofloxacin/Dextrose 500 mg in 100 mls @ 100 mls/hr 11/28/22 13:38 Levofloxacin 500mg/100ml D5w IV 11/28/22 14:37 STAT STA Discontinued Medications Generic Name Dose Route Start Last Admin Trade Name Freq PRN Reason Stop Dose Admin Ondansetron HCl 4 mg 11/28/22 11:39 11/28/22 11:42 Ondansetron Hcl 4 Mg/2 Ml Vial IV 11/28/22 11:40 4 mg STAT ONE Administration Ondansetron HCl Confirm 11/28/22 11:41 Ondansetron Hcl 4 Mg/2 Ml Vial Administered 11/28/22 11:42 Dose 4 mg .ROUTE .STK-MED ONE Lab/Rad Data: Laboratory Result Diagrams 11/28/22 11:30 11/28/22 11:30 Laboratory Results 11/28/22 11/28/22 11/28/22 Range/Units 11:32 11:30 11:30 WBC (4.0-10.5) x10^3/uL RBC (4.1-5.4) x10^6/uL Hgb (12.0-16.0) g/dL Hct (35-47) % MCV (78-100) fL MCH (26-32) pg MCHC (32-36) g/dL RDW (11.5-14.0) % Plt Count (150-450) x10^3/uL MPV (7.5-11.0) fL Gran % (36.0-66.0) % Immature Gran % (Auto) (0.00-0.4) % Nucleat RBC Rel Count (0.00-0.1) % Eos # (Auto) (0-0.5) x10^3/uL Immature Gran # (Auto) (0.00-0.03) x10^3u/L Absolute Lymphs (auto) (1.0-4.6) x10^3/uL Absolute Monos (auto) (0.0-1.3) x10^3/uL Absolute Nucleated RBC (0.00-0.01) x10^3u/L Lymphocytes % (24.0-44.0) % Monocytes % (0.0-12.0) % Eosinophils % (0.00-5.0) % Basophils % (0.0-0.4) % Absolute Granulocytes (1.4-6.9) x10^3/uL Basophils # (0-0.4) x10^3/uL Sodium 137 (137-145) mmol/L Potassium 4.3 (3.5-5.1) mmol/L Chloride 104 (98-107) mmol/L Carbon Dioxide 28 (22-30) mmol/L Anion Gap 8.5 (5-15) MEQ/L BUN 13 (7-17) mg/dL Creatinine 0.70 (0.52-1.04) mg/dL Estimated GFR > 60.0 ML/MIN Glucose 92 (74-106) mg/dL Calcium 8.9 (8.4-10.2) mg/dL Total Bilirubin 0.80 (0.2-1.3) mg/dL AST 31 (14-36) U/L ALT 22 (0-35) U/L Alkaline Phosphatase 91 (38-126) U/L Troponin I < 0.012 (0.000-0.034) ng/mL Serum Total Protein 7.1 (6.3-8.2) g/dL Albumin 3.9 (3.5-5.0) g/dL Urine Color Yellow (Yellow) Urine Appearance Clear (Clear) Urine pH 7.5 (4.6-8.0) Ur Specific [place] 1.010 (1.005-1.030) Urine Protein Negative (Negative) Urine Glucose (UA) Negative (Negative) mg/dL Urine Ketones Negative (Negative) Urine Blood Small A (Negative) Urine Nitrite Negative (Negative) Urine Bilirubin Negative (Negative) Urine Urobilinogen 1.0 A (0.2) mg/dL Ur Leukocyte Esterase Moderate A (Negative) U Hyaline Cast (Auto) NONE SEEN (0-2) /LPF Urine Microscopic RBC 6-10 A (0-5) /HPF Urine Microscopic WBC 11-20 A (0-5) /HPF Ur Epithelial Cells None Seen (None Seen) /HPF Urine Bacteria None Seen (None Seen) /HPF Urine Culture Reflexed ORDERED SEPARATELY (NO) 11/28/22 Range/Units 11:30 WBC 3.9 L (4.0-10.5) x10^3/uL RBC 3.56 L (4.1-5.4) x10^6/uL Hgb 11.4 L (12.0-16.0) g/dL Hct 34.7 L (35-47) % MCV 97.5 (78-100) fL MCH 32.0 (26-32) pg MCHC 32.9 (32-36) g/dL RDW 12.6 (11.5-14.0) % Plt Count 148 L (150-450) x10^3/uL MPV 9.5 (7.5-11.0) fL Gran % 62.9 (36.0-66.0) % Immature Gran % (Auto) 0.3 (0.00-0.4) % Nucleat RBC Rel Count 0.0 (0.00-0.1) % Eos # (Auto) 0.11 (0-0.5) x10^3/uL Immature Gran # (Auto) 0.01 (0.00-0.03) x10^3u/L Absolute Lymphs (auto) 0.99 L (1.0-4.6) x10^3/uL Absolute Monos (auto) 0.31 (0.0-1.3) x10^3/uL Absolute Nucleated RBC 0.00 (0.00-0.01) x10^3u/L Lymphocytes % 25.3 (24.0-44.0) % Monocytes % 7.9 (0.0-12.0) % Eosinophils % 2.8 (0.00-5.0) % Basophils % 0.8 (0.0-0.4) % Absolute Granulocytes 2.47 (1.4-6.9) x10^3/uL Basophils # 0.03 (0-0.4) x10^3/uL Sodium (137-145) mmol/L Potassium (3.5-5.1) mmol/L Chloride (98-107) mmol/L Carbon Dioxide (22-30) mmol/L Anion Gap (5-15) MEQ/L BUN (7-17) mg/dL Creatinine (0.52-1.04) mg/dL Estimated GFR ML/MIN Glucose (74-106) mg/dL Calcium (8.4-10.2) mg/dL Total Bilirubin (0.2-1.3) mg/dL AST (14-36) U/L ALT (0-35) U/L Alkaline Phosphatase (38-126) U/L Troponin I (0.000-0.034) ng/mL Serum Total Protein (6.3-8.2) g/dL Albumin (3.5-5.0) g/dL Urine Color (Yellow) Urine Appearance (Clear) Urine pH (4.6-8.0) Ur Specific [place] (1.005-1.030) Urine Protein (Negative) Urine Glucose (UA) (Negative) mg/dL Urine Ketones (Negative) Urine Blood (Negative) Urine Nitrite (Negative) Urine Bilirubin (Negative) Urine Urobilinogen (0.2) mg/dL Ur Leukocyte Esterase (Negative) U Hyaline Cast (Auto) (0-2) /LPF Urine Microscopic RBC (0-5) /HPF Urine Microscopic WBC (0-5) /HPF Ur Epithelial Cells (None Seen) /HPF Urine Bacteria (None Seen) /HPF Urine Culture Reflexed (NO) - Progress Progress: improved, re-examined Progress Note: 11/28/22 12:23 CT scan of head without contrast shows a nonacute senile brain. There is no intracranial hemorrhage. There is no acute ischemic changes 11/28/22 13:40 This patient's medical issue is of moderate complexity. This is based on the review of old inpatient records here at the hospital and obtaining additional information from the patient's . It is also based on the patient's complaint, history and physical examination findings. This prompted me to order CT scan of the patient's head, placed an intravenous line and provide the patient with IV fluids and antiemetic intravenously. In addition we did blood work and obtained a urinalysis the work-up reveals that the patient has a significant urinary tract infection this can account for her symptoms. We will provide the patient with intravenous antibiotics and then send additional oral antibiotics to her pharmacy. We will also refill a prescription from meclizine which the patient has had in the past. Counseled pt/family regarding: lab results, diagnosis, need for follow-up, rad results Medical Desision Making - Independent Historian Additional History obtained from: Spouse - External Record(s) Reviewed Records reviewed as a part of evaluation & management: Inpatient - Discussion of managment Reviewed:: Test results Agreed on:: Treatment plan, need for follow-up - Diagnostic Testing Radiological Interpretation: Reviewed by me, Teleradiologist Report - Risk of complications Low Risk: Low risk of morbidity from additional dx testing or treatment - Departure Departure Disposition: Home Clinical Impression: UTI (urinary tract infection), Dizziness Condition: Stable Critical Care Time: No Referrals: JOSE COFFEY MD [Primary Care Provider] - Follow up/PCP as directed Additional Instructions: Drink plenty of fluids. Take your medications as prescribed. Follow-up with your primary care provider for further evaluation and management. Prescriptions: Meclizine HCl 25 mg [Antivert 25 mg] 25 mg PO Q8H PRN #10 tablet PRN Reason: Dizziness Ciprofloxacin [Cipro 500 MG] 500 mg PO BID #14 tablet
[2022-11-28] MEDS ORDERED: Sodium Chloride 0.9% 1000 ML 1,000 ML IV SCH (11:30)
[2022-11-28 11:33] LABS: Absolute Neutrophil Ct (ANC) 2.47 x10^3/uL (1.4-6.9); BASOPHIL % 0.8 % (0.0-0.4); Basophil (Absolute #) 0.03 x10^3/uL (0-0.4); Eosinophil % 2.8 % (0.00-5.0); Eosinophil (Absolute #) 0.11 x10^3/uL (0-0.5); Hematocrit 34.7 % (35-47); Hemoglobin 11.4 g/dL (12.0-16.0); IMMATURE GRAN # 0.01 x10^3u/L (0.00-0.03); IMMATURE GRAN % 0.3 % (0.00-0.4); Lymphocyte (Absolute #) 0.99 x10^3/uL (1.0-4.6); Lymphocytes % 25.3 % (24.0-44.0); Mean Cell Volume 97.5 fL (78-100); Mean Corpuscular Hgb Concent. 32.9 g/dL (32-36); Mean Platelet Volume 9.5 fL (7.5-11.0); Monocyte (Absolute #) 0.31 x10^3/uL (0.0-1.3); Monocytes % 7.9 % (0.0-12.0); Neutrophil % 62.9 % (36.0-66.0); Platelet Count 148 x10^3/uL (150-450); Red Blood Count 3.56 x10^6/uL (4.1-5.4); Red Cell Distribution Width 12.6 % (11.5-14.0); White Blood Count 3.9 x10^3/uL (4.0-10.5)
[2022-11-28] MEDS ORDERED: Sodium Chloride 0.9% 1000 ML 1,000 ML ONE (11:33)
[2022-11-28] MEDS ORDERED: Zofran 4 MG/2 ML VIAL IV ONE (11:39)
[2022-11-28] MEDS ORDERED: Zofran 4 MG/2 ML VIAL ONE (11:41)
[2022-11-28 11:46] LABS: ALBUMIN 3.9 g/dL (3.5-5.0); ALKALINE PHOSPHATASE 91 U/L (38-126); ANION GAP 8.5 MEQ/L (5-15); BLOOD UREA NITROGEN 13 mg/dL (7-17); CHLORIDE 104 mmol/L (98-107); Calcium 8.9 mg/dL (8.4-10.2); Carbon Dioxide 28 mmol/L (22-30); EST GLOMERULAR FILTRATION RATE > 60.0 ML/MIN; Glucose 92 mg/dL (74-106); Potassium 4.3 mmol/L (3.5-5.1); SGOT/AST 31 U/L (14-36); SGPT/ALT 22 U/L (0-35); SODIUM 137 mmol/L (137-145); Total Protein 7.1 g/dL (6.3-8.2)
[2022-11-28 11:50] LABS: Appearance Clear (Clear); Bacteria None Seen /HPF (None Seen); Bilirubin Negative (Negative); Blood Small (Negative); Epithelial Cells None Seen /HPF (None Seen); Glucose, Urine Negative (Negative); Hyaline Casts NONE SEEN /LPF (0-2); Ketones Negative (Negative); Leukocyte Esterase Moderate (Negative); Nitrite Negative (Negative); Ph 7.5 (4.6-8.0); Protein,Urine Dip Negative (Negative)
--- NOTE | 2022-11-28 12:06 | XRAY ---
Indication: Syncope. No known injury. Multiple contiguous axial images obtained through the head without contrast. Comparison: December 05, 2019 Again age-appropriate global atrophy and moderate periventricular degenerative micro-ischemia bilaterally. No acute intracranial hemorrhage, abnormal extra-axial fluid collection, or mass effect. Fourth ventricle is midline without hydrocephalus. Bony calvarium intact. Visualized paranasal sinuses and mastoid air cells are clear. Impression: Continued nonacute senile brain.
[2022-11-28 12:37] LABS: ADD URINE CULTURE? ORDERED SEPARATELY (NO)
[2022-11-28] MEDS ORDERED: Levofloxacin 500MG/100ML D5W 500 MG/100 ML BAG IV STA (13:38)
[2022-11-28] MEDS ORDERED: Levofloxacin 500MG/100ML D5W 500 MG/100 ML BAG IV ONE (13:41)
[2022-11-28 14:11] VITALS: BP 153/64; O2SAT 98
[2022-11-28 15:01] VITALS: PULSE 78
== END 2022-11-28 15:21 | disposition home or self-care (01) ==
LOC: ED 11:05
DX: N39.0 Urinary tract infection, site not specified (principal); R42 Dizziness and giddiness; R07.9 Chest pain, unspecified; I10 Essential (primary) hypertension; E78.5 Hyperlipidemia, unspecified; Z79.891 Long term (current) use of opiate analgesic; Z79.899 Other long term (current) drug therapy
CPT/HCPCS: 36000; 36415; 70450; 80053; 81001; 84484; 85025; 87086; 93005; 93041; 96360; 96365; 96374; 99284; P9612; J1956; J2405

== ENCOUNTER 2023-05-12 18:11 | Emergency (ER) | payer MEDICARE ==
[2023-05-12] MEDS ORDERED: TETRACAINE 0.5% STERI-UNIT SOL OP ONE (18:40)
[2023-05-12 18:41] VITALS: TEMP 97.8
[2023-05-12 19:48] VITALS: BP 132/66; PULSE 54; RESP 20; O2SAT 98
--- NOTE | 2023-05-12 20:03 | ERPHSYRPT ---
- History of Present Illness Time Seen by Provider: 05/12/23 18:20 Source: patient, family Exam Limitations: no limitations Patient Subjective Stated Complaint: pt went to [facility] yesterday and had her left eye injected for macular degeneration and she is having a lot of pressure in her eye today stating that it feels like someone is squeezing it Triage Nursing Assessment: Pt brought to the ER by her , hypertensive, bradycardic, rates pain in the eye as 8/10, pain began yesterday after the injection but got worse today, pt went to see the eye doctor again today and he told her everything looked okay, pt continued to have more pain, pulses normal, skin n/w/d, no difficulty breathing, unable to keep left eye open Physician History: 82 years old female with history of macular degeneration who has seen ophthalmology this morning with retinal injections done presented in the ER with increasing pain dull aching to sharp throbbing left eye. Patient has decreased vision at her baseline and is unable to see much out of the left eye after injection this morning. Patient called ophthalmology and was recommended to be evaluated in the ER. Denies any eye discharge. No redness of eyeball. She is started on eye ointment which she has used this afternoon. Allergies/Adverse Reactions: cefaclor [From Ceclor] Allergy (Verified 05/12/23 18:38) Penicillins Allergy (Verified 05/12/23 18:38) acetaminophen [From Vicodin] Adverse Reaction (Verified 05/12/23 18:38) celecoxib [From Celebrex] Adverse Reaction (Verified 05/12/23 18:38) codeine Adverse Reaction (Verified 05/12/23 18:38) hydrocodone [From Vicodin] Adverse Reaction (Verified 05/12/23 18:38) morphine Adverse Reaction (Verified 05/12/23 18:38) propoxyphene [From Darvon] Adverse Reaction (Verified 05/12/23 18:38) Home Medications: Valsartan [Diovan] 160 mg PO HS 07/19/14 [History] Aspirin 81 gm Chew [Baby Aspirin 81 mg Chew] 81 mg PO DAILY 03/22/15 [ History] Metoprolol Succinate 50 mg [Toprol Xl 50 MG] 25 mg PO HS 05/26/19 [History] Atorvastatin Calcium [Lipitor 20MG Tablet] 40 mg PO DAILY 10/14/19 [History] Isosorbide Mononitrate [Isosorbide Mononitrate ER] 30 mg PO DAILY 10/14/19 [History] Meclizine HCl 12.5 mg PO QID 10/14/19 [History] Oxybutynin Chloride [Oxybutynin Chloride ER] 5 mg PO HS 12/05/19 [History] Tramadol HCl 50 mg [Ultram 50 mg] 50 mg PO QID PRN PRN 11/15/21 [History] hydroCHLOROthiazide [Hydrochlorothiazide] 12.5 mg PO DAILY 11/15/21 [History] Hx Tetanus, Diphtheria Vaccination/Date Given: Yes Hx Influenza Vaccination/Date Given: Yes Hx Pneumococcal Vaccination/Date Given: Yes Travel Risk - International Travel Have you traveled outside of the country in past 3 weeks: No - Coronavirus Screening Are you exhibiting any of the following symptoms?: No Close contact with a COVID-19 positive Pt in past 14-21 Days: No - Vaccine Status Have you recieved a Covid-19 vaccination: Yes Repairer General: Unknown - Vaccination Dates Dates if Unknown: unk - Review of Systems Constitutional: Night Sweats Eyes: Eye Pain, Photophobia, Vision Changes, Foreign Body Sensation Ears, Nose, & Throat: No Symptoms Respiratory: No Symptoms Cardiac: No Symptoms Skin: No Symptoms Endocrine: No Symptoms - Past Medical History Pertinent Past Medical History: Yes Neurological History: Dementia ENT History: Cataracts, Macular Degeneration Cardiac History: Hypertension Respiratory History: No Pertinent History Endocrine Medical History: No Pertinent History Musculoskeletal History: Osteoarthritis GI Medical History: GERD, Hernia, Pancreatitis, Other History: No Pertinent History Psycho-Social History: Anxiety, Depression, Panic Disorder 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, Other Other Medical History: VERTIGO - Past Surgical History Past Surgical History: Yes Neuro Surgical History: No Pertinent History Cardiac: No Pertinent History, CABG, Cardiac Catheterization Respiratory: Lobectomy Gastrointestinal: Appendectomy, Cholecystectomy, Hernia Repair Genitourinary: No Pertinent History Musculoskeletal: Orthopedic Surgery Female Surgical History: Hysterectomy Other Surgical History: upper right lung, knee replacement X2, CABG done March 2019 at [place] - Social History Smoking Status: Never smoker Exposure to second hand smoke: Yes Drug Use: none Patient Lives Alone: No - Nursing Vital Signs Nursing Vital Signs: Initial Vital Signs Temperature 97.8 F 05/12/23 18:19 Pulse Rate 60 05/12/23 18:19 Blood Pressure 141/63 05/12/23 18:19 O2 Sat by Pulse Oximetry 97 05/12/23 18:19 Pain Scale Pain Intensity 8 - Physical Exam Vision Acuity Degree Evaluation Phase: Corrected Vision Acuity Right Eye: 20/100 Vision Acuity Left Eye: couldn't see nurse at the eye chart Eye Exam: left eye: other (Linear corneal abrasion just below the pupil.), bilateral eye: PERRL, EOMI Ears, Nose, Throat Exam: normal ENT inspection Neck Exam: normal inspection, non-tender, supple, full range of motion Respiratory Exam: normal breath sounds, lungs clear Cardiovascular Exam: regular rate/rhythm, normal heart sounds Neurologic: alert, oriented x 3, cooperative Skin Exam: normal color SpO2 Interpretation: normal SpO2: 98 O2 Delivery: Room Air Ordered Tests: Medication Summary Discontinued Medications Generic Name Dose Route Start Last Admin Trade Name Freq PRN Reason Stop Dose Admin Tetracaine HCl Confirm 05/12/23 18:40 Tetracaine Hcl/Pf 4 Ml Bottle Administered 05/12/23 18:41 Dose 4 ml OP .STK-MED ONE - Progress Progress: improved Progress Note: 05/12/23 19:59 82 years old female with history of macular degeneration who has seen ophthalmo logy this morning with retinal injections done presented in the ER with increasing pain dull aching to sharp throbbing left eye. Patient has decreased vision at her baseline and is unable to see much out of the left eye after injection this morning. Patient called ophthalmology and was recommended to be evaluated in the ER. Denies any eye discharge. No redness of eyeball. She is started on eye ointment which she has used this afternoon. Is an abrasion in the cornea. Intraocular pressure is 18. Feeling better after tetracaine drops. No other acute finding noticed. Discussed with Dr. Ye, reviewed history and exam findings, recommended continuing with ointment Tylenol as needed and outpatient follow-up. I have discussed the recommendation with patient and family understand and agree with it. Discussed signs symptoms of worsening needing return to ER which does seem understanding. Counseled pt/family regarding: diagnosis, need for follow-up Medical Desision Making - Discussion of managment Care discussed with:: specialist ( director case management at 7:30 PM) Agreed on:: need for follow-up Will see patient: In office - Departure Departure Disposition: Home Clinical Impression: Acute pain in left eye, Corneal abrasion, left Condition: Stable Critical Care Time: No Referrals: JOSE COFFEY MD [Primary Care Provider] - Follow up/PCP as directed NAEL YE MD [NON-STAFF PHY W/O PRIVILEGES] - Follow up/PCP as directed (Call for appointment for reevaluation.) Instructions: Corneal Abrasion (DC) Additional Instructions: Continue with ointment given to you by ophthalmology. Take Tylenol as needed. Follow-up with your director case management early next week. Return to ER for any worsening pain, discharge etc.
== END 2023-05-12 20:10 | disposition home or self-care (01) ==
LOC: ED 18:11
DX: S05.02XA Injury of conjunctiva and corneal abrasion without foreign body, left eye, initial encounter (principal); H57.12 Ocular pain, left eye; H35.30 Unspecified macular degeneration; Z79.899 Other long term (current) drug therapy
CPT/HCPCS: 99282

== ENCOUNTER 2023-06-02 08:25 | Emergency (ER) | payer MEDICARE ==
[2023-06-02 08:42] VITALS: BP 173/90; PULSE 70; TEMP 96.9; O2SAT 98
--- NOTE | 2023-06-02 08:55 | ERPHSYRPT ---
- History of Present Illness Source: patient, EMS, other (Phone call from daughter to ER) Exam Limitations: other (Dementia) Patient Subjective Stated Complaint: Pt was found on the floor by her and pt was unaware of how she got there, pt does have dementia and so does the and they live alone together Triage Nursing Assessment: Pt brought to the ER by EMS, 911 was called for lift assist only and upon arrival pt stated that she didn't know how she got on the floor and so pt was brought to the hospital, pt's daughter called and stated that she is a hospice pt and that she has dementia and didn't want her to be seen, this nurse stated that it was out of my control and we legally had to see the pt due to the ambulance bringer her, daughter stated that she only wanted her vitals done and then released, pt doesn't appear to be in any distress and is talking non stop, hypertensive, rates her old pain as 5/10 and no new pain, pulses normal, skin n/w/d, tramaine legs swollen and wrapped, no difficulty breathing, no new bruising, pt fell yesterday and has a small lump to the lateral side of her left eye Physician History: 82 yo [facility] hospice pt who arrived per EMS after being call for fall assist. When EMS arrived, pt stated that she wanted to come to the hospital. Someone who stated that she was the pt's daughter called nursing upset that pt was brought to the ER and wanted her sent home immediately. Daughter's number is not on file and no POA listed. Pt is alert and oriented x 2. She has some abrasions on her face but denies LOC,ESCOTO,C or T-spine pain. Pt complains of mild L-spine pain. Occurred: this morning Reason for Fall: lost balance Injuries/Pain Location: lower Loss of Consciousness: no loss of consciousness Severity of Pain-Max: mild Severity of Pain-Current: mild Modifying Factors: Improves With: nothing Associated Symptoms (Fall): denies symptoms Allergies/Adverse Reactions: cefaclor [From Ceclor] Allergy (Verified 06/02/23 08:42) Penicillins Allergy (Verified 06/02/23 08:42) acetaminophen [From Vicodin] Adverse Reaction (Verified 06/02/23 08:42) celecoxib [From Celebrex] Adverse Reaction (Verified 06/02/23 08:42) codeine Adverse Reaction (Verified 06/02/23 08:42) hydrocodone [From Vicodin] Adverse Reaction (Verified 06/02/23 08:42) morphine Adverse Reaction (Verified 06/02/23 08:42) propoxyphene [From Darvon] Adverse Reaction (Verified 06/02/23 08:42) Home Medications: Valsartan [Diovan] 160 mg PO HS 07/19/14 [History] Aspirin 81 gm Chew [Baby Aspirin 81 mg Chew] 81 mg PO DAILY 03/22/15 [History] Metoprolol Succinate 50 mg [Toprol Xl 50 MG] 25 mg PO HS 03/03/19 [History] Atorvastatin Calcium [Lipitor 20MG Tablet] 40 mg PO DAILY 10/14/19 [History] Isosorbide Mononitrate [Isosorbide Mononitrate ER] 30 mg PO DAILY 10/14/19 [History] Meclizine HCl 12.5 mg PO QID 10/14/19 [History] Oxybutynin Chloride [Oxybutynin Chloride ER] 5 mg PO HS 12/05/19 [History] Tramadol HCl 50 mg [Ultram 50 mg] 50 mg PO QID PRN PRN 11/15/21 [History] hydroCHLOROthiazide [Hydrochlorothiazide] 12.5 mg PO DAILY 11/15/21 [History] Hx Tetanus, Diphtheria Vaccination/Date Given: Yes Hx Influenza Vaccination/Date Given: Yes Hx Pneumococcal Vaccination/Date Given: Yes Travel Risk - International Travel Have you traveled outside of the country in past 3 weeks: No - Coronavirus Screening Are you exhibiting any of the following symptoms?: No Close contact with a COVID-19 positive Pt in past 14-21 Days: No - Vaccine Status Have you recieved a Covid-19 vaccination: Yes [employer]: Unknown - Vaccination Dates Dates if Unknown: unk - Review of Systems Constitutional: No Symptoms Eyes: No Symptoms Ears, Nose, & Throat: No Symptoms Respiratory: No Symptoms Cardiac: No Symptoms Abdominal/Gastrointestinal: No Symptoms Genitourinary Symptoms: No Symptoms Musculoskeletal: No Symptoms, Back Pain Skin: No Symptoms Neurological: No Symptoms Psychological: No Symptoms Endocrine: No Symptoms Hematologic/Lymphatic: No Symptoms Immunological/Allergic: No Symptoms - Past Medical History Pertinent Past Medical History: Yes Neurological History: Dementia ENT History: Cataracts, Macular Degeneration Cardiac History: Hypertension Respiratory History: No Pertinent History Endocrine Medical History: No Pertinent History Musculoskeletal History: Osteoarthritis GI Medical History: GERD, Hernia, Pancreatitis, Other History: No Pertinent History Psycho-Social History: Anxiety, Depression, Panic Disorder 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, Other Other Medical History: VERTIGO - Past Surgical History Past Surgical History: Yes Neuro Surgical History: No Pertinent History Cardiac: No Pertinent History, CABG, Cardiac Catheterization Respiratory: Lobectomy Gastrointestinal: Appendectomy, Cholecystectomy, Hernia Repair Genitourinary: No Pertinent History Musculoskeletal: Orthopedic Surgery Female Surgical History: Hysterectomy Other Surgical History: upper right lung, knee replacement X2, CABG done March 2019 at [facility] - Social History Smoking Status: Never smoker Exposure to second hand smoke: Yes Drug Use: none Patient Lives Alone: No - Nursing Vital Signs Nursing Vital Signs: Initial Vital Signs Temperature 96.9 F 06/02/23 08:26 Pulse Rate 70 06/02/23 08:26 Blood Pressure 173/90 06/02/23 08:26 O2 Sat by Pulse Oximetry 98 06/02/23 08:26 Pain Scale Pain Intensity 5 Hypertensive - [place] Coma Score Best Eye Response ([place]): (4) open spontaneously Best Verbal Response ([place]): (4) confused conversation Best Motor Response ([place]): (6) obeys commands [place] Total: 14 - Physical Exam General Appearance: no apparent distress Head Injury: no evidence of injury (Old facial abrasions) Eye Exam: PERRL/EOMI, eyes nml inspection ENT Exam: airway nml, evidence of ENT injury, No clear fluid (ears), No clear fluid (nose) Neck Exam: other (C-spine NTTP) Respiratory/Chest Exam: normal breath sounds, No chest tenderness, No respiratory distress Cardiovascular Exam: regular rate/rhythm, murmur (3/6 Diastolic murmur) Gastrointestinal Exam: soft, normal bowel sounds, No tenderness Back Exam: vertebral tenderness (No T-spine TTP/Mild L-spine TTP at best) Extremity Exam: normal inspection, normal range of motion, capillary refill <3 sec, pelvis stable, No deformities Peripheral Pulses: carotid (R): 2+, carotid (L): 2+ Neurologic Exam: alert, cooperative, 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 II-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 nml as tested, normal mood/affect, nml cerebellar function, nml station & gait, sensation nml, No oriented x 3 (Disoriented to time) Skin Exam: normal color, warm, dry SpO2 Interpretation: normal SpO2: 98 O2 Delivery: Room Air - Course Nursing assessment & vital signs reviewed: Yes - CT Exams Head CT Interpretation: Discussed w/radiologist (Nothing acute) Lumbar Spine CT Interpretation: Discussed w/radiologist (New T12 compression fx) Ordered Tests: Active Orders 24 hr Category Date Time Status HEAD WITHOUT CONTRAST [CT] Stat Exams 06/02/23 08:36 Completed LUMBAR SPINE W/O [CT] Stat Exams 06/02/23 08:37 Completed - Progress Progress Note: 06/02/23 15:26 Nursing note and vital signs reviewed No food or housing insecurities noted Additional history through daughter in law and Hospice through my nurses Pt wo significant pain in ER and has Tramadol at home Pt discharged and was supposed to picker/puller pt. never arrived after pt was discharged, so maintenance crew took pt home 06/02/23 15:28 Counseled pt/family regarding: diagnosis, need for follow-up, rad results Medical Desision Making - Independent Historian Additional History obtained from: Family, EMS - Diagnostic Testing Radiological Interpretation: Reviewed by me - Risk of complications The pt has a mod risk of morbidity or mortality based on: Need for prescription drug management - Departure Departure Disposition: Home Clinical Impression: Minor head injury without loss of consciousness, Compression fracture Condition: Stable Critical Care Time: No Referrals: JOSE COFFEY MD [Primary Care Provider] - Follow up/PCP as directed Instructions: Vertebral Compression Fracture (DC), Preventing falls in adults, Minor Head Injury (DC) Additional Instructions: Follow up with your family Hospice for pain control Return to ER as needed
--- NOTE | 2023-06-02 09:23 | XRAY ---
Indication: Pain following fall. Multiple contiguous axial images obtained through the head without contrast. Comparison: November 28, 2022 Again age-appropriate global atrophy and moderate periventricular degenerative micro-ischemia. No acute intracranial hemorrhage, abnormal extra-axial fluid collection, or mass effect. Fourth ventricle is midline without hydrocephalus. Bony calvarium intact. Paranasal sinuses and mastoid air cells are clear. Impression: Stable nonacute senile brain.
--- NOTE | 2023-06-02 09:33 | XRAY ---
Indication: Pain following fall. Multiple contiguous images obtained through the lumbar spine. Sagittal and coronal reformatted images obtained. Comparison: CT abdomen/pelvis March 03, 2018 Osseous structures remain demineralized. New T12 compression fracture with complete collapse and encroachment on spinal canal. Mean AP spinal canal diameter is approximately 8 mm. Remaining levels demonstrates stable minimal L2-L5 broad-based disc bulge and minimal L4-L5 degenerative vacuum disc phenomena. Facets are symmetric again with moderate L3-S1 degenerative facet hypertrophy. Sagittal and coronal reformatted images again demonstrates minimal levoscoliosis and minimal grade 1 anterolisthesis L3 on L4 on L5. Stable L4-S1 disc space narrowing. Visualized noncontrasted soft tissues again demonstrates moderate aortoiliac calcifications. Visualized colon now demonstrates moderate diffuse fecal stasis. Impression: 1. New T12 compression fracture of uncertain chronicity. There is complete collapse and encroachment on spinal canal with spinal canal narrowing. 2. Again osteopenia, multilevel degenerative disc disease, minimal grade 1 listhesis L3 on L4 on L5, levoscoliosis, and arteriosclerotic disease. 3. New diffuse fecal stasis.
== END 2023-06-02 10:35 | disposition home or self-care (01) ==
LOC: ED 08:25
DX: S09.90XA Unspecified injury of head, initial encounter (principal); S22.080A Wedge compression fracture of T11-T12 vertebra, initial encounter for closed fracture; W19.XXXA Unspecified fall, initial encounter; F03.90 Unspecified dementia, unspecified severity, without behavioral disturbance, psychotic disturbance, mood disturbance, and anxiety; I10 Essential (primary) hypertension; Z79.891 Long term (current) use of opiate analgesic; Z79.899 Other long term (current) drug therapy
CPT/HCPCS: 70450; 72131; 99282